=== PATIENT | female | born 1970 | race American Indian/Alaskan Native ===

== ENCOUNTER 2016-11-11 10:40 | Inpatient (IN) | payer MEDICAID ==
[2016-11-11] MEDS ORDERED: NORMODYNE IV ONE (11:21)
[2016-11-11 11:44] LABS: Basophils % (Auto) 0.8 % (0.0-1.8); Eosinophils % (Auto) 2.3 % (0.0-4.3); Hematocrit 40.6 % (30.3-42.9); Hemoglobin 12.8 gm/dl (10.1-14.3); Mean Corpuscular HGB Conc 32 % (30-34); Mean Corpuscular Hemoglobin 27 pg (28-32); Mean Corpuscular Volume 86 fl (79-97); Platelet Count 334 K/mm3 (140-440); Red Cell Distribution Width 13.1 % (13.2-15.2); White Blood Count 8.7 K/mm3 (4.5-11.0)
[2016-11-11 11:52] LABS: INR 0.82 (0.87-1.13)
--- NOTE | 2016-11-11 11:52 | XRay Report ---
AP CHEST: HISTORY: Hypertension AP view of the chest demonstrates a normal mediastinal and cardiac contour with clear lungs and normal bony and soft tissue structures. IMPRESSION: Unremarkable AP chest.
[2016-11-11 11:53] LABS: BUN/Creatinine Ratio 13.07; Calcium 8.5 mg/dL (8.4-10.2); Chloride 101.2 mmol/L (98-107)
[2016-11-11 11:59] LABS: Partial Thromboplastin Time 30.3 Sec. (24.2-36.6)
--- NOTE | 2016-11-11 12:22 | Cat Scan Report ---
CT HEAD WITHOUT CONTRAST: HISTORY: CVA. Serial contiguous axial images were obtained through the cranium. Intravenous contrast material was not administered. The ventricles are normal in size and appearance. There is no mass effect or midline shift. No areas of abnormally increased or decreased attenuation are seen. No mass lesion is seen. The mastoid air cells and visualized portions of the sinuses are normal. IMPRESSION: Cranial CT scan within normal limits. No change since 02/28/16.
[2016-11-11] MEDS ORDERED: NITRO-BID 2% TP ONE (13:14)
[2016-11-11] MEDS ORDERED: ASPIRIN PO ONE (13:14)
[2016-11-11 13:21] LABS: Alanine Aminotransferase 10 units/L (7-56); Albumin 2.4 g/dL (3.9-5); Albumin/Globulin Ratio 0.7 %; Alkaline Phosphatase 31 units/L (35-129); Bilirubin,Total < 0.2 mg/dL (0.1-1.2); Total Protein 5.7 g/dL (6.3-8.2)
[2016-11-11 13:28] LABS: Bilirubin,Direct < 0.2 mg/dL (0-0.2)
[2016-11-11] MEDS ORDERED: D50W (25GM) IV PRN (13:35)
[2016-11-11] MEDS ORDERED: NON-FORMULARY (Metformin Hcl [Glucophage] 1,000 MG) PO SCH (13:45)
[2016-11-11] MEDS ORDERED: ASPIRIN PO SCH (14:00)
[2016-11-11] MEDS: ZESTRIL PO SCH (14:26)
[2016-11-11] MEDS: HCTZ PO SCH (14:26)
[2016-11-11] MEDS: LOPRESSOR PO SCH ×3 (14:27→22:23)
[2016-11-11] MEDS: NEURONTIN PO SCH ×2 (14:41→22:22)
[2016-11-11] MEDS: PROTONIX PO SCH ×2 (14:42→22:24)
[2016-11-11] MEDS: COLACE PO PRN (14:42)
[2016-11-11] MEDS: LOPID PO SCH ×2 (15:03→22:21)
[2016-11-11 16:13] LABS: Creatine Kinase MB 7.5 ng/mL (0.0-4.0)
[2016-11-11 16:15] LABS: Alanine Aminotransferase 9 units/L (7-56); Albumin 2.7 g/dL (3.9-5); Albumin/Globulin Ratio 0.9 %; Alkaline Phosphatase 30 units/L (35-129); BUN/Creatinine Ratio 13.57; Bilirubin,Total < 0.2 mg/dL (0.1-1.2); Blood Urea Nitrogen 19 mg/dL (7-17); Calcium 8.5 mg/dL (8.4-10.2); Carbon Dioxide 27 mmol/L (22-30); Chloride 99.6 mmol/L (98-107); Creatine Kinase 160 units/L (30-135); Glucose 136 mg/dL (65-100); Potassium 3.6 mmol/L (3.6-5.0); Sodium 138 mmol/L (137-145); Total Protein 5.6 g/dL (6.3-8.2)
[2016-11-11 16:24] LABS: Anion Gap 15 mmol/L
[2016-11-11] MEDS: HEPARIN/ 0.45% NACL-25,000 UNIT/500 ML 500 ML IV SCH (16:49)
[2016-11-11] MEDS: NOVOLOG SUB-Q SCH ×2 (16:53→22:44)
[2016-11-11] MEDS ORDERED: GLUCOPHAGE PO SCH (17:00)
[2016-11-11 17:29] LABS: Hematocrit 37.4 % (30.3-42.9); Hemoglobin 11.9 gm/dl (10.1-14.3)
[2016-11-11 17:50] LABS: INR 0.91 (0.87-1.13)
[2016-11-11 17:57] LABS: Creatine Kinase MB 6.8 ng/mL (0.0-4.0)
[2016-11-11] MEDS ORDERED: NON-FORMULARY (Ranitidine Hcl [Zantac 300 Mg Tab] 300 MG) PO SCH (18:00)
--- NOTE | 2016-11-11 20:00 | Emergency Department Report ---
ED Neuro Deficit HPI - General Chief Complaint: Neuro Symptoms/Deficit Stated Complaint: TIA Time Seen by Provider: 11/11/16 11:16 Source: patient, EMS Mode of arrival: Stretcher Limitations: No Limitations - History of Present Illness Initial Comments: The patient was admitted to this facility under very similar circumstances in August. 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 She had a CT of her head which showed "chunky dural calcifications". An MRI was recommended which the patient refused it. This time the patient states that she had right-sided weakness for less than a half an hour which did not involve her face. She states she may have had some tingling. While she was in the emergency department her thought she was having another episode. However, when I went to see her she was entirely neurologically intact and denied any recurrent weakness. The patient has a history of hypertension. She tells me she was compliant with her blood pressure medicine. However she admits that she did not take a dose yesterday and today. It seems not likely that she is noncompliant. -: Gradual Location: right arm, right leg Presenting Symptoms: Present: Weak/Paralyzed One Side History of same: No Place: home Severity: moderate Quality: weak Improves With: none Worsens With: none On Anticoagulants: No Context: sudden onset Associated Symptoms: denies other symptoms Treatments Prior to Arrival: none - Related Data Home Medications: Home Medications Medication Instructions Recorded Confirmed Last Taken Aspirin [Aspirin BABY CHEW TAB] 81 mg PO QDAY 02/28/16 11/11/16 02/28/16 Gabapentin [Neurontin] 300 mg PO Q8HR 02/28/16 11/11/16 02/28/16 Gemfibrozil [Lopid] 600 mg PO BID 02/28/16 11/11/16 02/28/16 Hydrochlorothiazide [HCTZ] 25 mg PO QDAY 02/28/16 11/11/16 02/28/16 Ibuprofen [Motrin 200 MG tab] 200 mg PO Q6H PRN 02/28/16 11/11/16 02/28/16 Lisinopril [Zestril TAB] 20 mg PO QDAY 02/28/16 11/11/16 02/28/16 Metformin HCl [Glucophage] 1,000 mg PO BID 02/28/16 11/11/16 02/28/16 Metoprolol [Lopressor TAB] 100 mg PO BID 02/28/16 11/11/16 02/28/16 Pantoprazole [Protonix TAB] 40 mg PO BID 02/28/16 11/11/16 02/28/16 Ranitidine HCl [Zantac 300 MG TAB] 300 mg PO QPM 02/28/16 11/11/16 02/28/16 cloNIDine [Catapres] 0.1 mg PO BID 02/28/16 11/11/16 02/28/16 Insulin NPH/Regular [NovoLIN 70/30] 0 units SQ ACHS 11/11/16 11/11/16 Unknown Previous Rx's Medication Instructions Recorded Last Taken Type amLODIPine [Norvasc] 10 mg PO QDAY #30 tablet 02/29/16 Unknown Rx Docusate Sodium [Colace] 100 mg PO BID PRN #60 capsule 06/26/16 Unknown Rx Allergies/Adverse Reactions: Allergies Allergy/AdvReac Type Severity Reaction Status Date / Time cat dander Allergy Unknown Verified 02/28/16 15:34 Egg Derived Allergy Vomiting Verified 02/28/16 15:34 ED Review of Systems ROS: Stated complaint: TIA Other details as noted in HPI Constitutional: denies: chills, fever Eyes: denies: eye pain, eye discharge, vision change ENT: denies: ear pain, throat pain Respiratory: denies: cough, shortness of breath, wheezing Cardiovascular: denies: chest pain, palpitations Endocrine: no symptoms reported Gastrointestinal: denies: abdominal pain, nausea, diarrhea Genitourinary: denies: urgency, dysuria, discharge Musculoskeletal: denies: back pain, joint swelling, arthralgia Skin: denies: rash, lesions Neurological: weakness. denies: headache, paresthesias Psychiatric: denies: anxiety, depression Hematological/Lymphatic: denies: easy bleeding, easy bruising ED Past Medical Hx - Past Medical History Hx Hypertension: Yes Hx CVA: Yes Hx Congestive Heart Failure: No Hx Diabetes: Yes Hx Asthma: No Hx COPD: No Additional medical history: high cholesterol - Social History Smoking Status: Never Smoker Substance Use Type: None - Medications Home Medications: Home Medications Medication Instructions Recorded Confirmed Last Taken Type Aspirin [Aspirin BABY CHEW TAB] 81 mg PO QDAY 02/28/16 11/11/16 02/28/16 History Gabapentin [Neurontin] 300 mg PO Q8HR 02/28/16 11/11/16 02/28/16 History Gemfibrozil [Lopid] 600 mg PO BID 02/28/16 11/11/16 02/28/16 History Hydrochlorothiazide [HCTZ] 25 mg PO QDAY 02/28/16 11/11/16 02/28/16 History Ibuprofen [Motrin 200 MG tab] 200 mg PO Q6H PRN 02/28/16 11/11/16 02/28/16 History Lisinopril [Zestril TAB] 20 mg PO QDAY 02/28/16 11/11/16 02/28/16 History Metformin HCl [Glucophage] 1,000 mg PO BID 02/28/16 11/11/16 02/28/16 History Metoprolol [Lopressor TAB] 100 mg PO BID 02/28/16 11/11/16 02/28/16 History Pantoprazole [Protonix TAB] 40 mg PO BID 02/28/16 11/11/16 02/28/16 History Ranitidine HCl [Zantac 300 MG TAB] 300 mg PO QPM 02/28/16 11/11/16 02/28/16 History cloNIDine [Catapres] 0.1 mg PO BID 02/28/16 11/11/16 02/28/16 History amLODIPine [Norvasc] 10 mg PO QDAY #30 tablet 02/29/16 11/11/16 Unknown Rx Docusate Sodium [Colace] 100 mg PO BID PRN #60 capsule 06/26/16 11/11/16 Unknown Rx Insulin NPH/Regular [NovoLIN 70/30] 0 units SQ ACHS 11/11/16 11/11/16 Unknown History ED Neuro Physical Exam - General Limitations: No Limitations General appearance: alert, in no apparent distress Suspected Stroke: No - Head Head exam: Present: atraumatic, normocephalic - Eye Eye exam: Present: normal appearance. Absent: scleral icterus - ENT ENT exam: Present: mucous membranes moist - Neck Neck exam: Present: normal inspection - Respiratory Respiratory exam: Present: normal lung sounds bilaterally. Absent: respiratory distress - Cardiovascular Cardiovascular Exam: Present: regular rate, normal rhythm. Absent: systolic murmur, diastolic murmur, rubs, gallop - GI/Abdominal GI/Abdominal exam: Present: soft, normal bowel sounds. Absent: distended, tenderness, guarding, rebound, rigid - Extremities Exam Extremities exam: Present: normal inspection - Back Exam Back exam: Present: normal inspection - Neurological Exam Neurological exam: Present: alert, oriented X3, CN II-XII intact. Absent: motor sensory deficit - NIHSS Assessment Interval: Baseline 1a. Level of Consciousness: alert 1b. LOC Questions: answers correctly 1c. LOC Commands: performs tasks correctly 2. Best Gaze: normal 3. Visual: no visual loss 4. Facial Palsy: normal symmetrical movement 5b. Motor Arm Right: no drift 5a. Motor Arm Left: no drift 6a. Motor Leg Left: no drift 6b. Motor Leg Right: no drift 7. Limb Ataxia: absent 8. Sensory: normal 9. Best Language: no aphasia 10. Dysarthria: normal 11. Extinction/Inattention: no abnormality Total Score: 0 Stroke Severity: No Stroke Symptoms - Psychiatric Psychiatric exam: Present: normal affect, normal mood - Skin Skin exam: Present: warm, dry, intact, normal color. Absent: rash ED Course Vital Signs 11/11/16 11/11/16 11/11/16 10:44 10:59 11:00 Temperature 98.4 F Pulse Rate 91 H 92 H Pulse Rate [ Left] Respiratory 18 Rate Blood Pressure 170/110 227/128 227/128 Blood Pressure [Left Arm] Blood Pressure [Right] O2 Sat by Pulse 16 L 100 Oximetry 11/11/16 11/11/16 11/11/16 11:24 11:45 12:00 Temperature Pulse Rate 92 H 99 H 97 H Pulse Rate [ Left] Respiratory 18 18 13 Rate Blood Pressure 229/130 191/118 Blood Pressure [Left Arm] Blood Pressure 229/130 177/97 [Right] O2 Sat by Pulse 100 100 Oximetry 11/11/16 11/11/16 11/11/16 12:08 12:37 13:00 Temperature Pulse Rate 97 H 97 H Pulse Rate [ Left] Respiratory 189 H 18 9 L Rate Blood Pressure 182/99 Blood Pressure [Left Arm] Blood Pressure 172/95 [Right] O2 Sat by Pulse 100 100 99 Oximetry 11/11/16 11/11/16 11/11/16 13:32 14:00 14:26 Temperature Pulse Rate 95 H 99 H 99 H Pulse Rate [ Left] Respiratory 14 Rate Blood Pressure 189/95 192/120 181/117 Blood Pressure [Left Arm] Blood Pressure [Right] O2 Sat by Pulse Oximetry 11/11/16 11/11/16 11/11/16 15:00 15:01 16:00 Temperature Pulse Rate 98 H 99 H 101 H Pulse Rate [ Left] Respiratory 16 12 11 L Rate Blood Pressure 180/117 180/117 185/117 Blood Pressure [Left Arm] Blood Pressure [Right] O2 Sat by Pulse 99 99 Oximetry 11/11/16 11/11/16 11/11/16 16:40 16:56 18:04 Temperature 98.5 F Pulse Rate 102 H 92 H Pulse Rate [ 89 Left] Respiratory 18 20 Rate Blood Pressure 183/114 Blood Pressure 187/98 [Left Arm] Blood Pressure 158/108 [Right] O2 Sat by Pulse 100 99 Oximetry - Reevaluation(s) Reevaluation #1: Patient is admitted by the hospitalist service for further care and stabilization of her blood pressure and repeat cerebral vascularworkup as per their decision making. 11/11/16 20:00 - Lab Data Result diagrams: 11/11/16 17:13 11/11/16 15:41 Lab Results 11/11/16 11/11/16 11/11/16 Range/Units 11:29 11:29 11:29 WBC 8.7 (4.5-11.0) K/mm3 RBC 4.70 (3.65-5.03) M/mm3 Hgb 12.8 (10.1-14.3) gm/dl Hct 40.6 (30.3-42.9) % MCV 86 (79-97) fl MCH 27 L (28-32) pg MCHC 32 (30-34) % RDW 13.1 L (13.2-15.2) % Plt Count 334 (140-440) K/mm3 Lymph % (Auto) 23.5 (13.4-35.0) % [place] % (Auto) 8.4 H (0.0-7.3) % Eos % (Auto) 2.3 (0.0-4.3) % Baso % (Auto) 0.8 (0.0-1.8) % Lymph # 2.0 (1.2-5.4) K/mm3 [place] # 0.7 (0.0-0.8) K/mm3 Eos # 0.2 (0.0-0.4) K/mm3 Baso # 0.1 (0.0-0.1) K/mm3 Seg Neutrophils % 65.0 (40.0-70.0) % Seg Neutrophils # 5.6 (1.8-7.7) K/mm3 PT 11.2 L (12.2-14.9) Sec. INR 0.82 L (0.87-1.13) APTT 30.3 (24.2-36.6) Sec. Thrombin Time (15.1-19.6) Sec. Sodium 140 (137-145) mmol/L Potassium 4.0 (3.6-5.0) mmol/L Chloride 101.2 (98-107) mmol/L Carbon Dioxide 25 (22-30) mmol/L Anion Gap 18 mmol/L BUN 17 (7-17) mg/dL Creatinine 1.3 H (0.7-1.2) mg/dL Estimated GFR 53 ml/min BUN/Creatinine Ratio 13.07 % Glucose 155 H (65-100) mg/dL Calcium 8.5 (8.4-10.2) mg/dL Total Bilirubin (0.1-1.2) mg/dL Direct Bilirubin (0-0.2) mg/dL Indirect Bilirubin mg/dL AST (5-40) units/L ALT (7-56) units/L Alkaline Phosphatase (35-129) units/L Troponin T 0.066 H (0.00-0.029) ng/mL Total Protein (6.3-8.2) g/dL Albumin (3.9-5) g/dL Albumin/Globulin Ratio % Triglycerides 146 (2-149) mg/dL Cholesterol 258 H (50-199) mg/dL LDL Cholesterol Direct 150 H (50-130) mg/dL HDL Cholesterol 79 H (40-59) mg/dL Cholesterol/HDL Ratio 3.26 % 11/11/16 11/11/16 11/11/16 Range/Units 11:29 11:29 13:19 WBC (4.5-11.0) K/mm3 RBC (3.65-5.03) M/mm3 Hgb (10.1-14.3) gm/dl Hct (30.3-42.9) % MCV (79-97) fl MCH (28-32) pg MCHC (30-34) % RDW (13.2-15.2) % Plt Count (140-440) K/mm3 Lymph % (Auto) (13.4-35.0) % [place] % (Auto) (0.0-7.3) % Eos % (Auto) (0.0-4.3) % Baso % (Auto) (0.0-1.8) % Lymph # (1.2-5.4) K/mm3 [place] # (0.0-0.8) K/mm3 Eos # (0.0-0.4) K/mm3 Baso # (0.0-0.1) K/mm3 Seg Neutrophils % (40.0-70.0) % Seg Neutrophils # (1.8-7.7) K/mm3 PT (12.2-14.9) Sec. INR (0.87-1.13) APTT (24.2-36.6) Sec. Thrombin Time 26.2 H (15.1-19.6) Sec. Sodium (137-145) mmol/L Potassium (3.6-5.0) mmol/L Chloride (98-107) mmol/L Carbon Dioxide (22-30) mmol/L Anion Gap mmol/L BUN (7-17) mg/dL Creatinine (0.7-1.2) mg/dL Estimated GFR ml/min BUN/Creatinine Ratio % Glucose (65-100) mg/dL Calcium (8.4-10.2) mg/dL Total Bilirubin < 0.2 (0.1-1.2) mg/dL Direct Bilirubin < 0.2 (0-0.2) mg/dL Indirect Bilirubin 0.0 mg/dL AST 14 (5-40) units/L ALT 10 (7-56) units/L Alkaline Phosphatase 31 L (35-129) units/L Troponin T 0.065 H (0.00-0.029) ng/mL Total Protein 5.7 L (6.3-8.2) g/dL Albumin 2.4 L (3.9-5) g/dL Albumin/Globulin Ratio 0.7 % Triglycerides (2-149) mg/dL Cholesterol (50-199) mg/dL LDL Cholesterol Direct (50-130) mg/dL HDL Cholesterol (40-59) mg/dL Cholesterol/HDL Ratio % - Medical Decision Making Obviously TPA was not indicated in this patient with a stroke score of 0 and no neurological deficit. Critical care attestation.: If time is entered above; I have spent that time in minutes in the direct care of this critically ill patient, excluding procedure time. ED Disposition Clinical Impression: Uncontrolled hypertension TIA (transient ischemic attack) Qualifiers: Transient cerebral ischemia type: unspecified Qualified Code(s): G45.9 - Transient cerebral ischemic attack, unspecified Disposition: OP ADMITTED IP TO THIS HOSP Is pt being admited?: Yes Does the pt Need Aspirin: Yes Time of Disposition: 20:01
[2016-11-11] MEDS ORDERED: TYLENOL PO PRN (21:25)
--- NOTE | 2016-11-11 22:28 | History and Physical Report ---
History of Present Illness Date of examination: 11/11/16 Date of admission: 11/11/16 13:29 Chief complaint: Numbness in the left upper and lower extremities one day duration History of present illness: Patient is 46-year-old lady who was a history of hypertension diabetes mellitus and hyperlipidemia, woke up this morning with numbness in the left upper and lower extremities. helped back to the bed and called EMS. On arrival to the emergency department patient stated that numbness had improved. Denies any fevers, no slow speech or facial droop. However blood pressure was found to be 229/130. Patient denies any chest pain or shortness of breath no proximal nocturnal dyspnea or pedal edema. Patient has similar episode in August 2016. Was fully worked up with the minimal narrowing of the carotid - 49%, identified. MRI of the brain was ordered at that admission but patient declined. at the emergency department on this visit patient's cardiac enzymes were found to be slightly elevated. However patient denies any chest pain. CT of the brain was unremarkable for any acute events. Admission was therefore requested for further workup. Past History Past Medical History: diabetes, hypertension, hyperlipidemia Past Surgical History: denies: No surgical history Social history: denies: smoking, alcohol abuse, IV drug use Family history: hypertension, stroke Medications and Allergies Allergies Allergy/AdvReac Type Severity Reaction Status Date / Time cat dander Allergy Unknown Verified 02/28/16 15:34 Egg Derived Allergy Vomiting Verified 02/28/16 15:34 Home Medications Medication Instructions Recorded Confirmed Last Taken Type Aspirin [Aspirin BABY CHEW TAB] 81 mg PO QDAY 02/28/16 11/11/16 02/28/16 History Gabapentin [Neurontin] 300 mg PO Q8HR 02/28/16 11/11/16 02/28/16 History Gemfibrozil [Lopid] 600 mg PO BID 02/28/16 11/11/16 02/28/16 History Hydrochlorothiazide [HCTZ] 25 mg PO QDAY 02/28/16 11/11/16 02/28/16 History Ibuprofen [Motrin 200 MG tab] 200 mg PO Q6H PRN 02/28/16 11/11/16 02/28/16 History Lisinopril [Zestril TAB] 20 mg PO QDAY 02/28/16 11/11/16 02/28/16 History Metformin HCl [Glucophage] 1,000 mg PO BID 02/28/16 11/11/16 02/28/16 History Metoprolol [Lopressor TAB] 100 mg PO BID 02/28/16 11/11/16 02/28/16 History Pantoprazole [Protonix TAB] 40 mg PO BID 02/28/16 11/11/16 02/28/16 History Ranitidine HCl [Zantac 300 MG TAB] 300 mg PO QPM 02/28/16 11/11/16 02/28/16 History cloNIDine [Catapres] 0.1 mg PO BID 02/28/16 11/11/16 02/28/16 History amLODIPine [Norvasc] 10 mg PO QDAY #30 tablet 02/29/16 11/11/16 Unknown Rx Docusate Sodium [Colace] 100 mg PO BID PRN #60 capsule 06/26/16 11/11/16 Unknown Rx Insulin NPH/Regular [NovoLIN 70/30] 0 units SQ ACHS 11/11/16 11/11/16 Unknown History Active Meds: Active Medications Acetaminophen (Tylenol) 650 mg PO Q4H PRN PRN Reason: Pain, Mild (1-3) Aspirin (Aspirin) 325 mg PO QDAY [facility] Last Admin: 11/11/16 14:01 Dose: Not Given Atorvastatin Calcium (Lipitor) 40 mg PO QHS [facility] Dextrose (D50w (25gm)) 50 ml IV PRN PRN PRN Reason: Hypoglycemia Docusate Sodium (Colace) 100 mg PO BID PRN PRN Reason: Constipation Last Admin: 11/11/16 14:42 Dose: 100 mg Gabapentin (Neurontin) 300 mg PO Q8HR [facility] Last Admin: 11/11/16 14:41 Dose: 300 mg Gemfibrozil (Lopid) 600 mg PO BID [facility] Last Admin: 11/11/16 15:03 Dose: Not Given Hydralazine HCl (Apresoline) 10 mg IV Q6H PRN PRN Reason: htn Hydrochlorothiazide (Hctz) 25 mg PO QDAY [facility] Last Admin: 11/11/16 14:26 Dose: 25 mg Heparin Sodium/Sodium Chloride (Heparin/ 0.45% Nacl-25,000 Unit/500 Ml) 500 mls @ 20 mls/hr IV TITRATE HUGO; 1,000 UNITS/HR PRN Reason: Protocol Last Admin: 11/11/16 16:49 Dose: 20 mls/hr Insulin Aspart (Novolog) 0 units SUB-Q ACHS [facility] PRN Reason: Protocol Last Admin: 11/11/16 16:53 Dose: Not Given Lisinopril (Zestril) 20 mg PO QDAY [facility] Last Admin: 11/11/16 14:26 Dose: 20 mg Metformin HCl (Glucophage) 1,000 mg PO BIDDIAB [facility] Last Admin: 11/11/16 18:18 Dose: Not Given Metoprolol Tartrate (Lopressor) 100 mg PO BID [facility] Last Admin: 11/11/16 16:40 Dose: 100 mg Pantoprazole Sodium (Protonix) 40 mg PO BID [facility] Last Admin: 11/11/16 14:42 Dose: 40 mg Review of Systems Constitutional: no weight gain, no fever, no chills, no anorexia Ears, nose, mouth and throat: no ear pain, no ear discharge, no tinnitis Cardiovascular: no chest pain, no orthopnea, no palpitations Respiratory: no cough, no cough with sputum, no excessive sputum, no hemoptysis Gastrointestinal: no abdominal pain, no nausea, no vomiting Musculoskeletal: no neck stiffness, no neck pain, no shooting arm pain Integumentary: no rash, no pruritis, no redness Neurological: numbness (left upper extremity) Psychiatric: no anxiety, no memory loss, no change in sleep habits, no sleep disturbances, no depression, no hopelessness Endocrine: no polyphagia, no excessive thirst, no polydipsia, no polyuria, no weight change Hematologic/Lymphatic: no easy bruising, no easy bleeding Allergic/Immunologic: no urticaria, no allergic rhinitis Exam - Constitutional Vitals: Temp Pulse Resp BP Pulse Ox 98.4 F 94 H 18 156/81 99 11/11/16 20:50 11/11/16 20:50 11/11/16 20:50 11/11/16 20:50 11/11/16 22:18 General appearance: Present: no acute distress - EENT Eyes: Present: PERRL, EOM intact - Neck Neck: Present: supple - Respiratory Respiratory: bilateral: CTA - Cardiovascular Rhythm: regular Heart Sounds: Present: S1 & S2 - Extremities Extremities: no ischemia, No edema - Abdominal General gastrointestinal: Present: soft, non-tender, non-distended - Integumentary Integumentary: Present: clear, warm - Musculoskeletal Musculoskeletal: strength equal bilaterally - Psychiatric Psychiatric: appropriate mood/affect - Neurologic Neurologic: CNII-XII intact Results - Labs CBC & Chem 7: 11/11/16 17:13 11/11/16 15:41 Labs: Abnormal lab results 11/11/16 11/11/16 11/11/16 Range/Units 15:41 17:20 17:20 BUN 19 H (7-17) mg/dL Creatinine 1.4 H (0.7-1.2) mg/dL Glucose 136 H (65-100) mg/dL POC Glucose (70-105) Alkaline Phosphatase 30 L (35-129) units/L Total Creatine Kinase 160 H 159 H (30-135) units/L CK-MB (CK-2) 7.5 H 6.8 H (0.0-4.0) ng/mL CK-MB (CK-2) Rel Index 4.6 H 4.2 H (0-4) Troponin T 0.069 H (0.00-0.029) ng/mL Total Protein 5.6 L (6.3-8.2) g/dL Albumin 2.7 L (3.9-5) g/dL 11/11/16 Range/Units 17:34 BUN (7-17) mg/dL Creatinine (0.7-1.2) mg/dL Glucose (65-100) mg/dL POC Glucose 203 H (70-105) Alkaline Phosphatase (35-129) units/L Total Creatine Kinase (30-135) units/L CK-MB (CK-2) (0.0-4.0) ng/mL CK-MB (CK-2) Rel Index (0-4) Troponin T (0.00-0.029) ng/mL Total Protein (6.3-8.2) g/dL Albumin (3.9-5) g/dL Assessment and Plan - Patient Problems (1) TIA (transient ischemic attack) Diagnosis Date: 11/11/16 Current Visit: Yes Status: Acute Qualifiers: Transient cerebral ischemia type: unspecified Qualified Code(s): G45.9 - Transient cerebral ischemic attack, unspecified Plan to address problem: Patient commenced on aspirin, atorvastatin, neurochecks every 4, Lovenox, MRI of the brain ordered. PT OT evaluation and treatment. Recent echo was done in August 2016. We'll therefore not obtain another echocardiogram. 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 Moderate dose. (4) Elevation of cardiac enzymes Diagnosis Date: 11/11/16 Current Visit: Yes Status: Acute Plan to address problem: Secondary cancers ordered. Oxygen nitroglycerin aspirin and morphine ordered. Patient commenced on heparin drip. Cardiology consult obtained.
--- NOTE | 2016-11-12 00:05 | Admit Criteria Form ---
Admission Criteria Documentation: TRANSIENT ISCHEMIC ATTACK (TIA) Clinical Indications for Admission to Inpatient Care (Place 'X' for any and all applicable criteria): Admission is indicated for ANY ONE of the following(1)(2)(3)(4)(5): [ ]I. Immediate inpatient procedure is needed (eg, endarterectomy). [X ]II. Inpatient admission required rather than observation care (Also use Transient Ischemic Attack (TIA): Observation Care Criteria as appropriate) because of ANY ONE of the following: [ ]a) Focal neurologic signs or symptoms persist or recurring [ ]b) Cardiac arrhythmias of immediate concern [ ]c) Clinically significant cardiac disorder identified that requires inpatient care (eg, severe valvular disease, atrial myxoma, cardiomyopathy) [ X]d) Hypertension requiring inpatient treatment [ ]e) Parenteral anticoagulation required (eg, alternative forms of anticoagulation not appropriate or not feasible) as indicated by ALL of the following(13): [ ]i) Temporary subtherapeutic anticoagulation unacceptable because of high risk of short-term venous or arterial thromboembolism due to ANY ONE of the following(14)(15)(16): [ ]1) Atrial fibrillation suspected as etiology of TIA(17)(18)(19)(20)(21) [ ]2) Venous thromboembolism within past 12 months [ ]3) Underlying malignancy [ ]4) Patient with mechanical cardiac valve(22)( 23) [ ]5) Underlying hypercoagulable state (eg, protein C or protein S deficiency antithrombin deficiency, antiphospholipid antibodies) [ ]6) Patient at temporary high risk of thromboembolism (eg, status post orthopedic surgery) [ ]ii) Contraindications to outpatient use of "bridging" agent or alternative oral anticoagulant[B] as indicated by ALL of the following: [ ]1) Contraindication to outpatient use of low- molecular-weight heparin as "bridging" agent as indicated by ANY ONE of the following(15): [ ]A. Documented current or history of heparin-induced thrombocytopenia(24) [ ]B. Severe thrombocytopenia (eg, platelet count less than 50,000/mm3 (48q152/L) [ ]C. Documented allergy to heparin, low- molecular-weight heparin, or pork products [ ]D. Renal failure (creatinine clearance less than 30 mL/min/1.73m2 (0.50mL/sec/1.73m2) or on dialysis) [ ]E. Inability to manage self-injection ( eg, by patient, caregiver, or visiting nurse) [ ]2) Contraindication to outpatient use of fondaparinux as "bridging" agent as indicated by ANY ONE of the following(25)(26 )(27)(28): [ ]A. Severe thrombocytopenia (eg, platelet count less than 50,000/mm3 (50 x109/L)) [ ]B.Hypersensitivity to fondaparinux, related drugs, or product components [ ]C.Renal failure (creatinine clearance less than 30 mL/min/1.73m2 (0.50mL/sec/1.73m2) or on dialysis) [ ]D.Inability to manage self-injection ( eg, by patient, caregiver, or visiting nurse [ ]3. Oral direct thrombin inhibitor (eg, dabigatran) or oral coagulation factor Xa inhibitor (eg, rivaroxaban, apixaban) not appropriate as oral anticoagulation (eg, indication not appropriate) or contraindicated (eg, hypersensitivity, creatinine clearance less than 15 mL/min/1.73m2 ( 0.25 mL/sec/1.73m2) or on dialysis). [ ]f) Continuous IV infusion of anticoagulant, platelet inhibitor, vasoactive or antiarrhythmia(18)(19) [ ]g) Other condition, treatment, or monitoring requiring inpatient admission [ ]III. Contraindications and/or Inappropriate clinical situations for Observational Care in patients with Transient Ischemic Attack (TIA), when ANY ONE of the following is required: [ ]a) Patient with persistent or severe neurological deficit 24 [ ]b) Patient with acute CVA or other identified pathology should be admitted to inpatient for further care 25 [ ]IV. General contraindications and/or Inappropriate clinical situations for Observational Care in patients with Transient Ischemic Attack (TIA), when ANY ONE of the following is required: [ ]a) Prediction of prolongation of LOS based on ANY ONE of the following may be considered as a contraindication for observational care 2, 3, 4, 5, 6, 7, 8, 9, 10, 11 [ ]i) Age > 65 yrs. [ ]ii) Patient arriving by ambulance [ ]iii) Patient with high acuity [ ]iv) Patient requiring vital sign monitoring [ ]v) Patient on IV medication [ ]b) Systolic blood pressures 180mmHg 3,12 [ ]c) Patient with altered mental status including delirium and other alteration of consciousness, (3) [ ]d) Patient whose discharge disposition will be to a [facility]p home or rehabilitation home should not be managed in Emergency Department Observation Unit. CMS rule requires 3 days hospital stay before such placement.3,13 [ ]e) Patient with failure to thrive due to broad array of etiologies 3,16,17 [ ]f) Inability to ambulate 3,14 Extended stay beyond goal length of stay may be needed for(4)(30)(32): [ ]a) Parenteral anticoagulation required [ ]b) Dangerous arrhythmia [ ]c) Cardiac valvular disorder, atrial myxoma, cardiomyopathy [ ]d) Uncontrolled severe hypertension [ ]e) Severe carotid stenosis [ ]f) Active comorbidities (eg, heart failure) [ ]g) Extracranial vertebrobasilar disease(29) [ ]h) Clinical evolution of TIA into cerebrovascular accident (stroke) The original [employer] content created by [employer] has been revised. The portions of thecontent which have been revised are identified through the use of italic text or in bold, and [facility] has neither reviewed nor approved the modified material. All other unmodified content is copyright [facility]. Please see references footnoted in the original [facility] edition 2016 Admission Criteria Met: Yes
[2016-11-12] MEDS ORDERED: HEPARIN 10,000 UNITS/10 ML IV ONE (01:38)
[2016-11-12] MEDS: APRESOLINE IV PRN ×3 (02:30→12:54)
[2016-11-12 06:10] LABS: Creatine Kinase MB 4.1 ng/mL (0.0-4.0)
[2016-11-12] MEDS: NEURONTIN PO SCH ×3 (06:42→23:08)
[2016-11-12] MEDS: NOVOLOG SUB-Q SCH ×4 (09:07→23:09)
[2016-11-12] MEDS: LOPRESSOR PO SCH ×2 (11:29→23:08)
[2016-11-12] MEDS: ZESTRIL PO SCH (11:29)
[2016-11-12] MEDS: HCTZ PO SCH (11:29)
[2016-11-12] MEDS: LOPID PO SCH ×2 (11:30→23:09)
[2016-11-12] MEDS: PROTONIX PO SCH ×2 (11:30→23:08)
[2016-11-12] MEDS: ASPIRIN PO SCH (11:34)
--- NOTE | 2016-11-12 11:46 | Magnetic Resonance Report ---
MRI of the brain without contrast. History: Transient ischemic attack. Procedure: Routine brain protocol without contrast. Findings: There are 3 subcentimeter foci of restricted diffusion in the right frontal lobe and one similar sized area of restricted diffusion in the right occipital lobe. The posterior fossa is normal. The ventricles are normal in size and contour. There are no masses or extra-axial collections. Minimal periventricular white matter signal abnormality is noted on the right. The pituitary gland is normal. There is evidence of bilateral maxillary and ethmoid sinusitis. Impression: 1. There are 4 areas of acute lacunar infarct in the right hemisphere, 3 in the right frontal lobe and one in the right occipital lobe. 2. Minimal right periventricular white matter ischemic changes. Comment: These findings were telephoned to the patient's physician, Dr. Tong at 11:45 AM on November 12, 2016.
--- NOTE | 2016-11-12 11:51 | Consultation ---
Addendum entered and electronically signed by AJAY HEARN MD 11/12/16 19:11 : Patient's major clinical problem is recurrent TIA, and a brain scan has reported multiple infarcts. We'll therefore recommend echocardiography with SELAM for cardioembolic source. Otherwise, no cardiac workup is indicated for nonspecific isolated mild rise in troponin. Original Note: History of Present Illness Consult date: 11/12/16 Consult reason: elevated troponin History of present illness: This is a 46yr old woman who presented with confusion and left sided weakness. She has a history of Hypertension and Diabetes mellitus. Noted hypertensive on presentation with a blood pressure 227/128. Patient reports not taking her medications for several weeks. Currently undergoing workup for CVA. Cardiac consultation requested for elevated troponin. There is no prior cardiac history or workup. Her ECG shows a sinus rhythm with LVH. She denies chest pain , shortness of breath and palpitations. Past History Past Medical History: diabetes, hypertension, hyperlipidemia Past Surgical History: denies: No surgical history Social history: denies: smoking, alcohol abuse, IV drug use Family history: hypertension, stroke Medications and Allergies Allergies Allergy/AdvReac Type Severity Reaction Status Date / Time cat dander Allergy Unknown Verified 02/28/16 15:34 Egg Derived Allergy Vomiting Verified 02/28/16 15:34 Home Medications Medication Instructions Recorded Confirmed Last Taken Type Aspirin [Aspirin BABY CHEW TAB] 81 mg PO QDAY 02/28/16 11/11/16 02/28/16 History Gabapentin [Neurontin] 300 mg PO Q8HR 02/28/16 11/11/16 02/28/16 History Gemfibrozil [Lopid] 600 mg PO BID 02/28/16 11/11/16 02/28/16 History Hydrochlorothiazide [HCTZ] 25 mg PO QDAY 02/28/16 11/11/16 02/28/16 History Ibuprofen [Motrin 200 MG tab] 200 mg PO Q6H PRN 02/28/16 11/11/16 02/28/16 History Lisinopril [Zestril TAB] 20 mg PO QDAY 02/28/16 11/11/16 02/28/16 History Metformin HCl [Glucophage] 1,000 mg PO BID 02/28/16 11/11/16 02/28/16 History Metoprolol [Lopressor TAB] 100 mg PO BID 02/28/16 11/11/16 02/28/16 History Pantoprazole [Protonix TAB] 40 mg PO BID 02/28/16 11/11/16 02/28/16 History Ranitidine HCl [Zantac 300 MG TAB] 300 mg PO QPM 02/28/16 11/11/16 02/28/16 History cloNIDine [Catapres] 0.1 mg PO BID 02/28/16 11/11/16 02/28/16 History amLODIPine [Norvasc] 10 mg PO QDAY #30 tablet 02/29/16 11/11/16 Unknown Rx Docusate Sodium [Colace] 100 mg PO BID PRN #60 capsule 06/26/16 11/11/16 Unknown Rx Insulin NPH/Regular [NovoLIN 70/30] 0 units SQ ACHS 11/11/16 11/11/16 Unknown History Active Meds: Active Medications Acetaminophen (Tylenol) 650 mg PO Q4H PRN PRN Reason: Pain, Mild (1-3) Last Admin: 11/11/16 22:22 Dose: 650 mg Aspirin (Aspirin) 325 mg PO QDAY [facility] Last Admin: 11/12/16 11:34 Dose: 325 mg Atorvastatin Calcium (Lipitor) 40 mg PO QHS [facility] Last Admin: 11/11/16 22:22 Dose: 40 mg Dextrose (D50w (25gm)) 50 ml IV PRN PRN PRN Reason: Hypoglycemia Docusate Sodium (Colace) 100 mg PO BID PRN PRN Reason: Constipation Last Admin: 11/11/16 14:42 Dose: 100 mg Gabapentin (Neurontin) 300 mg PO Q8HR [facility] Last Admin: 11/12/16 06:42 Dose: 300 mg Gemfibrozil (Lopid) 600 mg PO BID [facility] Last Admin: 11/12/16 11:30 Dose: 600 mg Hydralazine HCl (Apresoline) 10 mg IV Q6H PRN PRN Reason: htn Last Admin: 11/12/16 08:09 Dose: 10 mg Hydrochlorothiazide (Hctz) 25 mg PO QDAY [facility] Last Admin: 11/12/16 11:29 Dose: 25 mg Heparin Sodium/Sodium Chloride (Heparin/ 0.45% Nacl-25,000 Unit/500 Ml) 500 mls @ 20 mls/hr IV TITRATE [facility]; 1,000 UNITS/HR PRN Reason: Protocol Last Titration: 11/12/16 11:07 Dose: 1,200 units/hr Insulin Aspart (Novolog) 0 units SUB-Q ACHS [facility] PRN Reason: Protocol Last Admin: 11/12/16 09:07 Dose: Not Given Lisinopril (Zestril) 20 mg PO QDAY [facility] Last Admin: 11/12/16 11:29 Dose: 20 mg Metoprolol Tartrate (Lopressor) 100 mg PO BID [facility] Last Admin: 11/12/16 11:29 Dose: 100 mg Pantoprazole Sodium (Protonix) 40 mg PO BID [facility] Last Admin: 11/12/16 11:30 Dose: 40 mg Physical Examination Vital Signs Temp Pulse BP Pulse Ox 98.4 F 91 H 170/110 16 L 11/11/16 10:44 11/11/16 10:44 11/11/16 10:44 11/11/16 10:44 General appearance: no acute distress HEENT: Positive: PERRL Neck: Positive: trachea midline Cardiac: Positive: Reg Rate and Rhythm Lungs: Positive: Decreased Breath Sounds Results 11/11/16 17:13 11/11/16 15:41 Cardiac Enzymes 11/11/16 11/11/16 11/12/16 Range/Units 15:41 17:20 05:12 AST 12 (5-40) units/L CK-MB (CK-2) 7.5 H 6.8 H 4.1 H (0.0-4.0) ng/mL Coagulation 11/11/16 Range/Units 17:13 PT 12.2 (12.2-14.9) Sec. INR 0.91 (0.87-1.13) APTT 33.0 (24.2-36.6) Sec. CBC 11/11/16 Range/Units 17:13 Hgb 11.9 (10.1-14.3) gm/dl Hct 37.4 (30.3-42.9) % Plt Count 296 (140-440) K/mm3 Comprehensive Metabolic Panel 11/11/16 Range/Units 15:41 Sodium 138 (137-145) mmol/L Potassium 3.6 (3.6-5.0) mmol/L Chloride 99.6 (98-107) mmol/L Carbon Dioxide 27 (22-30) mmol/L BUN 19 H (7-17) mg/dL Creatinine 1.4 H (0.7-1.2) mg/dL Glucose 136 H (65-100) mg/dL Calcium 8.5 (8.4-10.2) mg/dL AST 12 (5-40) units/L ALT 9 (7-56) units/L Alkaline Phosphatase 30 L (35-129) units/L Total Protein 5.6 L (6.3-8.2) g/dL Albumin 2.7 L (3.9-5) g/dL Assessment and Plan Acute CVA Hypertension, uncontrolled Elevated troponin, nonspecific Diabetes mellitus Noncompliant with medications Recommendations: Echocardiogram for LVEF assessment Primary team and neurology for CVA workup
--- NOTE | 2016-11-12 12:34 | Echocardiography Report ---
Transthoracic Echocardiogram Indication: Stroke BP: 146/63 Conclusions *1. Normal LV chamber size and function, EF 55-60%. *2. Severe concentric LVH. Findings Left Ventricle: The left ventricular chamber size is normal. Severe concentric left ventricular hypertrophy is observed. Global left ventricular wall motion and contractility are within normal limits. Global left ventricular systolic function is normal. The estimated ejection fraction is 55-60%. Abnormal left ventricular diastolic filling is observed, consistent with impaired relaxation. Left Atrium: The left atrial chamber size is normal. Right Ventricle: The right ventricle wall thickness is normal. The right ventricular cavity size is normal. The right ventricular global systolic function is normal. Right Atrium: The right atrial cavity size is normal. The interatrial septum appears normal. No atrial septal defected is demonstrated by agitated saline contrast. Aortic Valve: The aortic valve is trileaflet. The aortic valve leaflets are moderately thickened. Mild aortic leaflet calcification is visualized. Systolic excursion of the aortic valve is normal. There is trace of aortic regurgitation. There is no evidence of aortic stenosis. 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 The mitral valve leaflets are moderately thickened. There is mild mitral regurgitation. There is no evidence of mitral stenosis. Tricuspid Valve: The tricuspid valve leaflets are normal. There is trace tricuspid regurgitation. No pulmonary hypertension is noted. There is no tricuspid stenosis. Pulmonic Valve: The pulmonic valve appears normal. There is no evidence of pulmonic regurgitation. There is no pulmonic stenosis. Pericardium: A trivial pericardial effusion is visualized. Aorta: There is no dilatation of the ascending aorta. There is no dilatation of the aortic arch. There is no dilatation of the descending thoracic aorta. There is no dilatation of the aortic root. Venous: The inferior vena cava appears normal in size. Contrast: Intravenous agitated saline contrast was used to assess intracardiac shunting. Measurements Chambers MM Name Value Normal Range Ao root diameter (MM) 2.7 cm (2 - 3.7) LA dimension (AP) MM 3.6 cm (1.9 - 4) LA:Ao ratio (MM) 1.33 ratio - AV cusp separation (MM) 1.3 cm (1.5 - 2.6) Chambers 2D Name Value Normal Range RVIDd (AP) 2D 3.01 cm (0.9 - 2.6) IVSd (2D) 1.45 cm (0.6 - 1.1) LVPWd (2D) 1.43 cm (0.6 - 1.1) IVS:LVPW ratio (2D) 1.01 ratio - LVIDd (2D) 3.66 cm (3.7 - 5.6) LVIDs (2D) 2.28 cm (2 - 3.8) LV FS (Teichholz) (2D) 37.7 % - LV FS (cube) (2D) 37.7 % - EF Teichholz (2D) 68.7 % - LA dimension (AP) 2D 3.3 cm (1.9 - 4) Volumes/Mass Name Value Normal Range LA ESV SP 4CH (MOD) 23 ml - LA ESV SP 2CH (MOD) 22 ml - LA ESV BP (MOD) 25 ml - LA ESV BP (MOD) index 14 ml/m2 - Diastolic/Systolic Function Name Value Normal Range MV E-wave Vmax 0.74 m/sec - MV deceleration time 180 msec - MV A-wave Vmax 0.84 m/sec - MV E:A ratio 0.9 ratio - LV septal e' Vmax 0.06 m/sec - LV lateral e' Vmax 0.05 m/sec - LV E:e' septal ratio 11.8 ratio - LV E:e' lateral ratio 14.1 ratio - Aortic Valve Name Value Normal Range AV VTI 30.8 cm - AV mean gradient 7 mmHg - LVOT diameter 2 cm - LVOT VTI 17.4 cm - LVOT mean gradient 2 mmHg - SV LVOT 55 ml - GABRIELE (continuity VTI) 1.77 cm2 - Mitral Valve Name Value Normal Range MV PHT 47 msec - MVA (PHT) 4.68 cm2 - Pulmonic Valve/Qp:Qs Name Value Normal Range PV Vmax 0.98 m/sec - PV peak gradient 4 mmHg - NH end-diastolic Vmax 1.56 m/sec - PV acceleration time 127 msec -
--- NOTE | 2016-11-12 14:28 | Consultation ---
History of Present Illness - Reason for Consult Consult date: 11/12/16 Evaluate for Acute IRU - History of Present Illness 46 y.o. right handed female who reports acute onset of left sided heaviness. Pt has a prior history of CVA in Aug 2015; pt unclear of initial effects, however, reports she required a RW briefly due to gait instability and also reports some dysarthria at that time. MRI Brain shows acute lacunar infarct in the right hemisphere, right frontal and occipital lobes. On today, she reports improvement in left sided weakness; denies any N/V, no headache or parasthesias. Consult is requested for post acute placement recommendations. Past History Past Medical History: diabetes, hypertension, hyperlipidemia Past Surgical History: denies: No surgical history Social history: other (lives with boyfriend who works intermittently). denies: smoking, alcohol abuse Family history: hypertension, stroke Medications and Allergies Allergies Allergy/AdvReac Type Severity Reaction Status Date / Time cat dander Allergy Unknown Verified 02/28/16 15:34 Egg Derived Allergy Vomiting Verified 02/28/16 15:34 Home Medications Medication Instructions Recorded Confirmed Last Taken Type Aspirin [Aspirin BABY CHEW TAB] 81 mg PO QDAY 02/28/16 11/11/16 02/28/16 History Gabapentin [Neurontin] 300 mg PO Q8HR 02/28/16 11/11/16 02/28/16 History Gemfibrozil [Lopid] 600 mg PO BID 02/28/16 11/11/16 02/28/16 History Hydrochlorothiazide [HCTZ] 25 mg PO QDAY 02/28/16 11/11/16 02/28/16 History Ibuprofen [Motrin 200 MG tab] 200 mg PO Q6H PRN 02/28/16 11/11/16 02/28/16 History Lisinopril [Zestril TAB] 20 mg PO QDAY 02/28/16 11/11/16 02/28/16 History Metformin HCl [Glucophage] 1,000 mg PO BID 02/28/16 11/11/16 02/28/16 History Metoprolol [Lopressor TAB] 100 mg PO BID 02/28/16 11/11/16 02/28/16 History Pantoprazole [Protonix TAB] 40 mg PO BID 02/28/16 11/11/16 02/28/16 History Ranitidine HCl [Zantac 300 MG TAB] 300 mg PO QPM 02/28/16 11/11/16 02/28/16 History cloNIDine [Catapres] 0.1 mg PO BID 02/28/16 11/11/16 02/28/16 History amLODIPine [Norvasc] 10 mg PO QDAY #30 tablet 02/29/16 11/11/16 Unknown Rx Docusate Sodium [Colace] 100 mg PO BID PRN #60 capsule 06/26/16 11/11/16 Unknown Rx Insulin NPH/Regular [NovoLIN 70/30] 0 units SQ ACHS 11/11/16 11/11/16 Unknown History Active Meds: Active Medications Acetaminophen (Tylenol) 650 mg PO Q4H PRN PRN Reason: Pain, Mild (1-3) Last Admin: 11/11/16 22:22 Dose: 650 mg Aspirin (Aspirin) 325 mg PO QDAY [facility] Last Admin: 11/12/16 11:34 Dose: 325 mg Atorvastatin Calcium (Lipitor) 40 mg PO QHS [facility] Last Admin: 11/11/16 22:22 Dose: 40 mg Dextrose (D50w (25gm)) 50 ml IV PRN PRN PRN Reason: Hypoglycemia Docusate Sodium (Colace) 100 mg PO BID PRN PRN Reason: Constipation Last Admin: 11/11/16 14:42 Dose: 100 mg Gabapentin (Neurontin) 300 mg PO Q8HR [facility] Last Admin: 11/12/16 13:57 Dose: 300 mg Gemfibrozil (Lopid) 600 mg PO BID [facility] Last Admin: 11/12/16 11:30 Dose: 600 mg Hydralazine HCl (Apresoline) 10 mg IV Q6H PRN PRN Reason: htn Last Admin: 11/12/16 12:54 Dose: 10 mg Hydrochlorothiazide (Hctz) 25 mg PO QDAY [facility] Last Admin: 11/12/16 11:29 Dose: 25 mg Heparin Sodium/Sodium Chloride (Heparin/ 0.45% Nacl-25,000 Unit/500 Ml) 500 mls @ 20 mls/hr IV TITRATE HUGO; 1,000 UNITS/HR PRN Reason: Protocol Last Titration: 11/12/16 11:07 Dose: 1,200 units/hr Insulin Aspart (Novolog) 0 units SUB-Q ACHS [facility] PRN Reason: Protocol Last Admin: 11/12/16 12:56 Dose: Not Given Lisinopril (Zestril) 20 mg PO QDAY [facility] Last Admin: 11/12/16 11:29 Dose: 20 mg Metoprolol Tartrate (Lopressor) 100 mg PO BID [facility] Last Admin: 11/12/16 11:29 Dose: 100 mg Pantoprazole Sodium (Protonix) 40 mg PO BID [facility] Last Admin: 11/12/16 11:30 Dose: 40 mg Review of Systems All systems: negative Ears, nose, mouth and throat: no dysphagia, no headache Cardiovascular: no chest pain, no lightheadedness Respiratory: no cough, no shortness of breath Gastrointestinal: no abdominal pain, no nausea, no vomiting, no constipation Genitourinary Female: no dysuria Neurological: weakness (left extremities), no parathesias Exam - Constitutional Vitals: Vital Signs - 12hr 11/12/16 11/12/16 11/12/16 02:30 05:30 08:09 Temperature 98.3 F Pulse Rate 86 Pulse Rate [ 94 H Apical] Respiratory 20 Rate Blood Pressure 181/106 198/120 Blood Pressure 146/63 [Left Arm] O2 Sat by Pulse 99 Oximetry 11/12/16 11/12/16 11/12/16 08:15 12:46 12:54 Temperature 98.3 F 98.4 F Pulse Rate Pulse Rate [ 90 96 H Apical] Respiratory 20 20 Rate Blood Pressure 217/125 Blood Pressure 198/120 135/89 [Left Arm] O2 Sat by Pulse 100 95 Oximetry General appearance: no acute distress, other (brother present) - EENT Eyes: EOM intact ENT: hearing intact - Neck Neck: supple, normal ROM - Respiratory Respiratory effort: normal Respiratory: bilateral: CTA - Cardiovascular Rhythm: regular Heart Sounds: Present: S1 & S2 - Extremities Extremities: No edema - Gastrointestinal General gastrointestinal: Present: soft, non-tender, non-distended, normal bowel sounds - Integumentary Integumentary: Present: clear - Musculoskeletal Musculoskeletal: other (decreased ROM at left shoulder, however, 4/5 strength in left extremities) - Neurologic Neurologic: other (mild facial droop noted; sensation grossly intact) - Psychiatric Psychiatric: appropriate mood/affect, intact judgment & insight, memory intact, cooperative - Labs CBC & Chem 7: 11/11/16 17:13 11/11/16 15:41 Labs: Laboratory Results - last 72 hr 11/11/16 11/11/16 11/11/16 15:41 17:13 17:13 Hgb 11.9 Hct 37.4 Plt Count 296 PT 12.2 INR 0.91 APTT 33.0 Heparin Anti-Xa Level Sodium 138 Potassium 3.6 Chloride 99.6 Carbon Dioxide 27 Anion Gap 15 BUN 19 H Creatinine 1.4 H Estimated GFR 49 BUN/Creatinine Ratio 13.57 Glucose 136 H POC Glucose Calcium 8.5 Total Bilirubin < 0.2 AST 12 ALT 9 Alkaline Phosphatase 30 L Total Creatine Kinase 160 H CK-MB (CK-2) 7.5 H CK-MB (CK-2) Rel Index 4.6 H Troponin T Total Protein 5.6 L Albumin 2.7 L Albumin/Globulin Ratio 0.9 11/11/16 11/11/16 11/11/16 17:20 17:20 17:34 Hgb Hct Plt Count PT INR APTT Heparin Anti-Xa Level Sodium Potassium Chloride Carbon Dioxide Anion Gap BUN Creatinine Estimated GFR BUN/Creatinine Ratio Glucose POC Glucose 203 H Calcium Total Bilirubin AST ALT Alkaline Phosphatase Total Creatine Kinase 159 H CK-MB (CK-2) 6.8 H CK-MB (CK-2) Rel Index 4.2 H Troponin T 0.069 H Total Protein Albumin Albumin/Globulin Ratio 11/11/16 11/11/16 11/12/16 22:18 23:41 05:12 Hgb Hct Plt Count PT INR APTT Heparin Anti-Xa Level < 0.10 L Sodium Potassium Chloride Carbon Dioxide Anion Gap BUN Creatinine Estimated GFR BUN/Creatinine Ratio Glucose POC Glucose 208 H Calcium Total Bilirubin AST ALT Alkaline Phosphatase Total Creatine Kinase 116 CK-MB (CK-2) 4.1 H CK-MB (CK-2) Rel Index 3.5 Troponin T Total Protein Albumin Albumin/Globulin Ratio 11/12/16 11/12/16 05:12 07:39 Hgb Hct Plt Count PT INR APTT Heparin Anti-Xa Level 0.44 Sodium Potassium Chloride Carbon Dioxide Anion Gap BUN Creatinine Estimated GFR BUN/Creatinine Ratio Glucose POC Glucose Calcium Total Bilirubin AST ALT Alkaline Phosphatase Total Creatine Kinase CK-MB (CK-2) CK-MB (CK-2) Rel Index Troponin T 0.090 H D Total Protein Albumin Albumin/Globulin Ratio Assessment and Plan Patient was assessed and evaluated for Acute Inpatient Rehab Unit. 46 y.o. right handed female with acute right CVA with improving left sided hemiparesis. Rehab options discussed with patient and brother. Pt has a history of prior CVA; received home health for short period following event; also required the use of a RW briefly, however, was not using an assistive device just prior to recent admission. PT evaluation is pending; Neurology consult is also pending. Pt will require ongoing medical management per primary team for DM, HTN (BP ranging from 227-156/128-81). Placement recommendations to follow PT evaluation. Will continue to follow. Thank you for consultation. - Patient Problems (1) CVA (cerebral vascular accident) Current Visit: Yes Status: Acute (2) Hemiparesis affecting left side as late effect of cerebrovascular accident Current Visit: Yes Status: Acute (3) Diabetes mellitus Diagnosis Date: 11/11/16 Current Visit: Yes Status: Acute Qualifiers: Diabetes mellitus type: type 2 Diabetes mellitus complication status: with hyperglycemia Diabetes mellitus tank terminal gauger insulin use: without tank terminal gauger use Qualified Code(s): E11.65 - Type 2 diabetes mellitus with hyperglycemia (4) Uncontrolled hypertension Current Visit: Yes Status: Acute
[2016-11-12 14:37] LABS: Alanine Aminotransferase 8 units/L (7-56); Albumin 2.2 g/dL (3.9-5); Albumin/Globulin Ratio 0.7 %; Alkaline Phosphatase 33 units/L (35-129); BUN/Creatinine Ratio 13.57; Bilirubin,Total < 0.2 mg/dL (0.1-1.2); Blood Urea Nitrogen 19 mg/dL (7-17); Calcium 7.7 mg/dL (8.4-10.2); Carbon Dioxide 21 mmol/L (22-30); Chloride 98.4 mmol/L (98-107); Glucose 313 mg/dL (65-100); Potassium 4.4 mmol/L (3.6-5.0); Sodium 136 mmol/L (137-145); Total Protein 5.3 g/dL (6.3-8.2)
[2016-11-12 14:38] LABS: Anion Gap 21 mmol/L
[2016-11-12 16:27] LABS: Eosinophils % (Auto) 1.7 % (0.0-4.3); Hematocrit 38.9 % (30.3-42.9); Hemoglobin 12.6 gm/dl (10.1-14.3); Mean Corpuscular HGB Conc 33 % (30-34); Mean Corpuscular Hemoglobin 28 pg (28-32); Mean Corpuscular Volume 85 fl (79-97); Platelet Count 331 K/mm3 (140-440); Red Blood Count 4.59 M/mm3 (3.65-5.03); Red Cell Distribution Width 13.5 % (13.2-15.2); White Blood Count 9.3 K/mm3 (4.5-11.0)
--- NOTE | 2016-11-12 17:43 | Progress Note ---
Assessment and Plan Assessment and plan: Acute ischemic stroke. multiple (4) lacunar infarcts seen on right. Continue Aspirin daily. Will need SELAM because multiple infarcts. Consult cardiology. I discussed with them. Will make NPO after MN. May need anticoagulation. hypertension. Was on Lopressor, Lisinopril, HCTZ,Norvasc, Clonidine. Now on Lisinopril, HCTZ aand Lopressor. Will hold Lisinopril and HCTZ because of RENÉ. Resume Norvasc. Diabetes mellitus type 2. Check fingerstick Qac and HS Hyperlipidemia. Srtatins Acute kidney injury. Stop Lisinopril and HCTZ Elevated Troponins. Cardiology consulted. Started on Heparin. Full code status. History Interval history: Patient presents with numbness left upper and lower ext Hospitalist Physical - Physical exam Narrative exam: Gen:Not in acute distress, HEENT: Not in acute distress, Neck:supple, no JVD Lungs: clear to auscultation bilat, no crackles or wheeze Heart: S1 and S2 reg, no murmurs, rubs or gallop Abd: Soft, non tender, non distended, normal BS Ext: No edema, no clubbing, no cyanosis Neuro;awake,alert, oriented x 3, no focal weakness, decreased sensation, left upper and lower ext - Constitutional Vitals: Temp Pulse Resp BP Pulse Ox 98.6 F 94 H 20 153/90 98 11/12/16 16:50 11/12/16 16:50 11/12/16 16:50 11/12/16 16:50 11/12/16 16:50 General appearance: Present: no acute distress, other (brother present) Results - Labs CBC & Chem 7: 11/13/16 02:16 11/12/16 14:01 Labs: Laboratory Last Values WBC 9.3 K/mm3 (4.5-11.0) 11/12/16 16:12 RBC 4.59 M/mm3 (3.65-5.03) 11/12/16 16:12 Hgb 12.6 gm/dl (10.1-14.3) 11/12/16 16:12 Hct 38.9 % (30.3-42.9) 11/12/16 16:12 MCV 85 fl (79-97) 11/12/16 16:12 MCH 28 pg (28-32) 11/12/16 16:12 MCHC 33 % (30-34) 11/12/16 16:12 RDW 13.5 % (13.2-15.2) 11/12/16 16:12 Plt Count 331 K/mm3 (140-440) 11/12/16 16:12 Lymph % (Auto) 20.9 % (13.4-35.0) 11/12/16 16:12 [place] % (Auto) 9.7 % (0.0-7.3) H 11/12/16 16:12 Eos % (Auto) 1.7 % (0.0-4.3) 11/12/16 16:12 Baso % (Auto) 1.0 % (0.0-1.8) 11/12/16 16:12 Lymph # 1.9 K/mm3 (1.2-5.4) 11/12/16 16:12 [place] # 0.9 K/mm3 (0.0-0.8) H 11/12/16 16:12 Eos # 0.2 K/mm3 (0.0-0.4) 11/12/16 16:12 Baso # 0.1 K/mm3 (0.0-0.1) 11/12/16 16:12 Seg Neutrophils % 66.7 % (40.0-70.0) 11/12/16 16:12 Seg Neutrophils # 6.2 K/mm3 (1.8-7.7) 11/12/16 16:12 PT 12.2 Sec. (12.2-14.9) 11/11/16 17:13 INR 0.91 (0.87-1.13) 11/11/16 17:13 APTT 33.0 Sec. (24.2-36.6) 11/11/16 17:13 Thrombin Time 26.2 Sec. (15.1-19.6) H 11/11/16 11:29 Heparin Anti-Xa Level 0.44 U.I./ml (0.3-0.7) 11/12/16 07:39 Sodium 136 mmol/L (137-145) L 11/12/16 14:01 Potassium 4.4 mmol/L (3.6-5.0) D 11/12/16 14:01 Chloride 98.4 mmol/L (98-107) 11/12/16 14:01 Carbon Dioxide 21 mmol/L (22-30) L 11/12/16 14:01 Anion Gap 21 mmol/L 11/12/16 14:01 BUN 19 mg/dL (7-17) H 11/12/16 14:01 Creatinine 1.4 mg/dL (0.7-1.2) H 11/12/16 14:01 Estimated GFR 49 ml/min 11/12/16 14:01 BUN/Creatinine Ratio 13.57 % 11/12/16 14:01 Glucose 313 mg/dL (65-100) H 11/12/16 14:01 POC Glucose 164 (70-105) H 11/12/16 16:42 Calcium 7.7 mg/dL (8.4-10.2) L 11/12/16 14:01 Total Bilirubin < 0.2 mg/dL (0.1-1.2) 11/12/16 14:01 Direct Bilirubin < 0.2 mg/dL (0-0.2) 11/11/16 11:29 Indirect Bilirubin 0.0 mg/dL 11/11/16 11:29 AST 19 units/L (5-40) 11/12/16 14:01 ALT 8 units/L (7-56) 11/12/16 14:01 Alkaline Phosphatase 33 units/L (35-129) L 11/12/16 14:01 Total Creatine Kinase 116 units/L (30-135) 11/12/16 05:12 CK-MB (CK-2) 4.1 ng/mL (0.0-4.0) H 11/12/16 05:12 CK-MB (CK-2) Rel Index 3.5 (0-4) 11/12/16 05:12 Troponin T 0.090 ng/mL (0.00-0.029) H D 11/12/16 05:12 Total Protein 5.3 g/dL (6.3-8.2) L 11/12/16 14:01 Albumin 2.2 g/dL (3.9-5) L 11/12/16 14:01 Albumin/Globulin Ratio 0.7 % 11/12/16 14:01 Triglycerides 146 mg/dL (2-149) 11/11/16 11:29 Cholesterol 258 mg/dL (50-199) H 11/11/16 11:29 LDL Cholesterol Direct 150 mg/dL (50-130) H 11/11/16 11:29 HDL Cholesterol 79 mg/dL (40-59) H 11/11/16 11:29 Cholesterol/HDL Ratio 3.26 % 11/11/16 11:29
[2016-11-13 02:27] LABS: Hematocrit 35.9 % (30.3-42.9); Hemoglobin 11.4 gm/dl (10.1-14.3)
[2016-11-13] MEDS ORDERED: NACL 0.9% 1000 ML 1,000 ML IV SCH (06:00)
[2016-11-13] MEDS: NEURONTIN PO SCH ×3 (06:13→21:56)
[2016-11-13] MEDS: HCTZ PO SCH (09:17)
[2016-11-13] MEDS: PROTONIX PO SCH ×2 (09:18→21:56)
[2016-11-13] MEDS: LOPRESSOR PO SCH ×2 (09:18→21:57)
[2016-11-13] MEDS: COLACE PO PRN (09:18)
[2016-11-13] MEDS: NOVOLOG SUB-Q SCH ×3 (09:19→17:02)
[2016-11-13] MEDS: ASPIRIN PO SCH (09:19)
[2016-11-13] MEDS: LOPID PO SCH ×2 (09:19→21:58)
--- NOTE | 2016-11-13 10:47 | Query- Nutrition ---
Dear Date:_11/13/16 Custodial Worker/CDS:Ritchie Monroy Phone#: Exercise your independent professional judgment when responding to query. Questions asked do not imply a particular answer is desired or expected. We greatly appreciate your clarification on this issue. Clinical Documentation States: 46 y/o f admitted 11/11/16 for CVA and HTN. Patient has PMH of DM. Upon further review of her lab chem profile; Clinical Findings Show: Albumin 2.4-> 2.2 Total Protein 5.7-> 5.3 Calcium Level 8.5-> 7.7 Total Lymphocyte Count 2.0-> 1.9 Please select the most appropriate option 3 [] Mild Malnutrition [] Mild - Moderate Malnutrition [] Moderate - Severe Malnutrition [x] Severe Malnutrition Serum Albumin 2.8 to 3.4 g/dl or Pre-albumin 5 to 17 mg/dl1,2 Inadequate nutritional intake1,2,3,4 NPO > 5 days Weight loss: 5% in 1 month or 7.5% in 3 months or 10% in 6 months1, 3,4 BMI 16 to 18.4 or Weight <90% of ideal body weight1,2,3,4 Serum Albumin < 2.8 g/ dl1,2 Lymphocytes < 1500/ L2 Inadequate nutritional intake3, high stress e.g. major trauma, sepsis,pancreatitis, gomez etc. Decubitus ulcers1,2, , skin breakdown2, easy hair pluckability2 Weight <80% standard for height2 Triceps skin fold <3 mm2 Mid-arm muscle circumference <15 cm2 Creatinine-height index <60% standard2 [ ] Cachexia [ ] Emaciated w/Malnutrition [ ] Other: [ ] Unable to determine [ ] Comment/Explanation: Present on Admission: [ x] Yes (Y) [ ] Clinically undeterminable (W) [ ] No (N) Please also document response in your Progress Notes and/or Discharge Summary and indicate if the condition was present on admission. MTDD
--- NOTE | 2016-11-13 11:14 | Progress Note ---
Addendum entered and electronically signed by AJAY HEARN MD 11/13/16 19:53 : The patient is awaiting transesophageal echocardiography for assessment of cardioembolic source, after the finding of multiple acute lacunar infarcts on brain MRI. It is also noted that blood pressure has remained persistently high, over 200 systolic. We will add nifedipine XL to her regimen. Original Note: Assessment and Plan Acute CVA Hypertension, uncontrolled Elevated troponin, nonspecific Diabetes mellitus Noncompliant with medications Plan: Will add procardia XL 90mg for optimal BP control. Use clonidine as needed for BP greater [id number]. SELAM tomorrow morning for rule out cardioembolic source. Otherwise, no cardiac workup is indicated for nonspecific isolated mild rise in troponin. Subjective Date of service: 11/13/16 Interval history: Physical therapy at bedside. Patient has no complaints. BP still not optimal. Systolic BP greater than 220. Objective Vital Signs Temp Pulse Pulse Resp BP BP Pulse Ox 11/13/16 08:00 98.4 F 80 18 222/134 99 11/13/16 05:05 98.5 F 89 20 163/101 99 11/13/16 00:40 98.4 F 98 H 22 126/74 100 11/13/16 00:00 90 11/12/16 21:10 99.1 F 100 H 22 132/77 98 11/12/16 16:50 98.6 F 94 H 20 153/90 98 11/12/16 16:20 87 11/12/16 14:00 87 11/12/16 12:54 217/125 11/12/16 12:46 98.4 F 96 H 20 135/89 95 - Physical Examination General: No Apparent Distress HEENT: Positive: PERRL Neck: Positive: trachea midline Cardiac: Positive: Reg Rate and Rhythm Lungs: Positive: Decreased Breath Sounds - Labs and Meds Cardiac Enzymes 11/12/16 Range/Units 14:01 AST 19 (5-40) units/L CBC 11/12/16 11/13/16 Range/Units 16:12 02:16 WBC 9.3 (4.5-11.0) K/mm3 RBC 4.59 (3.65-5.03) M/mm3 Hgb 12.6 11.4 (10.1-14.3) gm/dl Hct 38.9 35.9 (30.3-42.9) % Plt Count 331 302 (140-440) K/mm3 Lymph # 1.9 (1.2-5.4) K/mm3 [place] # 0.9 H (0.0-0.8) K/mm3 Eos # 0.2 (0.0-0.4) K/mm3 Baso # 0.1 (0.0-0.1) K/mm3 Comprehensive Metabolic Panel 11/12/16 Range/Units 14:01 Sodium 136 L (137-145) mmol/L Potassium 4.4 D (3.6-5.0) mmol/L Chloride 98.4 (98-107) mmol/L Carbon Dioxide 21 L (22-30) mmol/L BUN 19 H (7-17) mg/dL Creatinine 1.4 H (0.7-1.2) mg/dL Glucose 313 H (65-100) mg/dL Calcium 7.7 L (8.4-10.2) mg/dL AST 19 (5-40) units/L ALT 8 (7-56) units/L Alkaline Phosphatase 33 L (35-129) units/L Total Protein 5.3 L (6.3-8.2) g/dL Albumin 2.2 L (3.9-5) g/dL
[2016-11-13] MEDS ORDERED: NITROSTAT SL PRN (12:48)
[2016-11-13] MEDS ORDERED: CATAPRES PO PRN (14:08)
[2016-11-13 14:30] LABS: Alanine Aminotransferase 7 units/L (7-56); Albumin/Globulin Ratio 0.7 %; Alkaline Phosphatase 26 units/L (35-129); BUN/Creatinine Ratio 11.76; Bilirubin,Total < 0.2 mg/dL (0.1-1.2); Blood Urea Nitrogen 20 mg/dL (7-17); Calcium 7.8 mg/dL (8.4-10.2); Carbon Dioxide 23 mmol/L (22-30); Chloride 103.4 mmol/L (98-107); Glucose 188 mg/dL (65-100); Potassium 3.8 mmol/L (3.6-5.0); Sodium 137 mmol/L (137-145); Total Protein 4.9 g/dL (6.3-8.2)
[2016-11-13 14:44] LABS: Anion Gap 14 mmol/L
[2016-11-13] MEDS: PROCARDIA XL PO SCH (15:01)
--- NOTE | 2016-11-13 15:01 | Event Note ---
Date: 11/13/16 IPR F/U, s/p CVA. Pt is seen on this afternoon. Therapy notes reviewed; pt is ambulating 200 feet x2 with CGA, supervision for transfers; Independent to SBA for ADLs; cleared for regular diet with thin liquids. Pt is pending SELAM in AM. Functionally, pt recommended for outpt PT at discharge. Please call for any further questions.
[2016-11-13] MEDS: HEPARIN/ 0.45% NACL-25,000 UNIT/500 ML 500 ML IV SCH (15:03)
--- NOTE | 2016-11-13 18:34 | Progress Note ---
Assessment and Plan Assessment and plan: --Acute ischemic stroke. multiple (4) acute lacunar infarcts seen on right. Continue Aspirin daily. And heparin drip, SELAM is scheduled for tomorrow in view of multiple infarcts --hypertension. Continue current antihypertensives and when necessary medications Moderate control --Diabetes mellitus type 2. Accu-Chek sliding scale coverage and ADA diet and insulin as needed --Hyperlipidemia. Stable on lipid-lowering medications --Acute kidney injury. Worsening renal function, avoid nephrotoxic medications gentle hydration --Elevated Troponins. Nonspecific Cardiology following continue current management SELAM tomorrow to rule out cardioembolic phenomenon causing acute CVA --Full code status. Physical therapy occupational therapy rehabilitation Consults and recommendations noted and appreciated Plan of care discussed with the patient family member as well as the nurse History Interval history: Patient seen and evaluated in her room this morning medical records reviewed Feels slightly better, acute rehabilitation evaluation noted and appreciated recommend outpatient physical therapy Patient is scheduled for SELAM tomorrow Patient feels better denies any chest pain shortness of breath headache dizziness Alert awake oriented 3 not in acute distress Hospitalist Physical - Constitutional Vitals: Temp Pulse Resp BP Pulse Ox 98.5 F 86 18 154/99 99 11/13/16 16:00 11/13/16 16:00 11/13/16 16:00 11/13/16 16:00 11/13/16 16:00 General appearance: Present: no acute distress, well-nourished, other (family member at the bedside) - EENT Eyes: Present: PERRL, EOM intact - Neck Neck: Present: supple, normal ROM - Respiratory Respiratory effort: normal, labored Respiratory: bilateral: diminished, negative: rales, rhonchi, wheezing - Cardiovascular Rhythm: regular Heart Sounds: Present: S1 & S2 - Extremities Extremities: no ischemia, pulses intact, pulses symmetrical Peripheral Pulses: within normal limits - Abdominal General gastrointestinal: soft, non-tender, non-distended, normal bowel sounds - Integumentary Integumentary: Present: clear, warm - Psychiatric Psychiatric: appropriate mood/affect, cooperative - Neurologic Neurologic: other (acute CVA with residual weakness) Results - Labs CBC & Chem 7: 11/13/16 02:16 11/13/16 13:49 Labs: Laboratory Last Values WBC 9.3 K/mm3 (4.5-11.0) 11/12/16 16:12 RBC 4.59 M/mm3 (3.65-5.03) 11/12/16 16:12 Hgb 11.4 gm/dl (10.1-14.3) 11/13/16 02:16 Hct 35.9 % (30.3-42.9) 11/13/16 02:16 MCV 85 fl (79-97) 11/12/16 16:12 MCH 28 pg (28-32) 11/12/16 16:12 MCHC 33 % (30-34) 11/12/16 16:12 RDW 13.5 % (13.2-15.2) 11/12/16 16:12 Plt Count 302 K/mm3 (140-440) 11/13/16 02:16 Lymph % (Auto) 20.9 % (13.4-35.0) 11/12/16 16:12 [place] % (Auto) 9.7 % (0.0-7.3) H 11/12/16 16:12 Eos % (Auto) 1.7 % (0.0-4.3) 11/12/16 16:12 Baso % (Auto) 1.0 % (0.0-1.8) 11/12/16 16:12 Lymph # 1.9 K/mm3 (1.2-5.4) 11/12/16 16:12 [place] # 0.9 K/mm3 (0.0-0.8) H 11/12/16 16:12 Eos # 0.2 K/mm3 (0.0-0.4) 11/12/16 16:12 Baso # 0.1 K/mm3 (0.0-0.1) 11/12/16 16:12 Seg Neutrophils % 66.7 % (40.0-70.0) 11/12/16 16:12 Seg Neutrophils # 6.2 K/mm3 (1.8-7.7) 11/12/16 16:12 PT 12.2 Sec. (12.2-14.9) 11/11/16 17:13 INR 0.91 (0.87-1.13) 11/11/16 17:13 APTT 33.0 Sec. (24.2-36.6) 11/11/16 17:13 Thrombin Time 26.2 Sec. (15.1-19.6) H 11/11/16 11:29 Heparin Anti-Xa Level 0.48 U.I./ml (0.3-0.7) 11/13/16 10:19 Sodium 137 mmol/L (137-145) 11/13/16 13:49 Potassium 3.8 mmol/L (3.6-5.0) 11/13/16 13:49 Chloride 103.4 mmol/L (98-107) 11/13/16 13:49 Carbon Dioxide 23 mmol/L (22-30) 11/13/16 13:49 Anion Gap 14 mmol/L 11/13/16 13:49 BUN 20 mg/dL (7-17) H 11/13/16 13:49 Creatinine 1.7 mg/dL (0.7-1.2) H 11/13/16 13:49 Estimated GFR 39 ml/min 11/13/16 13:49 BUN/Creatinine Ratio 11.76 % 11/13/16 13:49 Glucose 188 mg/dL (65-100) H 11/13/16 13:49 POC Glucose 225 (70-105) H 11/13/16 12:38 Calcium 7.8 mg/dL (8.4-10.2) L 11/13/16 13:49 Total Bilirubin < 0.2 mg/dL (0.1-1.2) 11/13/16 13:49 Direct Bilirubin < 0.2 mg/dL (0-0.2) 11/11/16 11:29 Indirect Bilirubin 0.0 mg/dL 11/11/16 11:29 AST 9 units/L (5-40) 11/13/16 13:49 ALT 7 units/L (7-56) 11/13/16 13:49 Alkaline Phosphatase 26 units/L (35-129) L 11/13/16 13:49 Total Creatine Kinase 116 units/L (30-135) 11/12/16 05:12 CK-MB (CK-2) 4.1 ng/mL (0.0-4.0) H 11/12/16 05:12 CK-MB (CK-2) Rel Index 3.5 (0-4) 11/12/16 05:12 Troponin T 0.090 ng/mL (0.00-0.029) H D 11/12/16 05:12 Total Protein 4.9 g/dL (6.3-8.2) L 11/13/16 13:49 Albumin 2.0 g/dL (3.9-5) L 11/13/16 13:49 Albumin/Globulin Ratio 0.7 % 11/13/16 13:49 Triglycerides 146 mg/dL (2-149) 11/11/16 11:29 Cholesterol 258 mg/dL (50-199) H 11/11/16 11:29 LDL Cholesterol Direct 150 mg/dL (50-130) H 11/11/16 11:29 HDL Cholesterol 79 mg/dL (40-59) H 11/11/16 11:29 Cholesterol/HDL Ratio 3.26 % 11/11/16 11:29
[2016-11-13 20:04] LABS: Basophils % (Auto) 1.1 % (0.0-1.8); Eosinophils % (Auto) 2.4 % (0.0-4.3); Hematocrit 36.8 % (30.3-42.9); Hemoglobin 11.7 gm/dl (10.1-14.3); Mean Corpuscular HGB Conc 32 % (30-34); Mean Corpuscular Hemoglobin 27 pg (28-32); Mean Corpuscular Volume 86 fl (79-97); Platelet Count 323 K/mm3 (140-440); Red Blood Count 4.29 M/mm3 (3.65-5.03); Red Cell Distribution Width 13.3 % (13.2-15.2); White Blood Count 8.7 K/mm3 (4.5-11.0)
[2016-11-14] MEDS: NOVOLOG SUB-Q SCH ×3 (00:33→13:10)
[2016-11-14] MEDS: NEURONTIN PO SCH ×2 (05:03→13:11)
[2016-11-14] MEDS ORDERED: SUBLIMAZE IV ONE (07:55)
[2016-11-14] MEDS ORDERED: VERSED IV ONE ×2 (07:55→08:22)
[2016-11-14] MEDS ORDERED: HURRICAINE ONE 20% TOPICAL SPRAY MM NR (08:00)
[2016-11-14] MEDS ORDERED: HURRICAINE ONE 20% TOPICAL SPRAY MM (08:21)
[2016-11-14] MEDS ORDERED: SUBLIMAZE ONE (08:22)
[2016-11-14] MEDS ORDERED: APRESOLINE ONE (10:23)
[2016-11-14] MEDS: APRESOLINE IV PRN (10:25)
--- NOTE | 2016-11-14 11:12 | Vascular Lab Report ---
CAROTID DUPLEX STUDY: RIGHT PSVEDV CCA PROX:60082 CCA DIST:79459 ICA PROX:4116 ICA MID:4315 ICA DIST:3812 ECA: [id number] VERT: 80 39 LEFT PSVEDV CCA PROX:16751 CCA DIST:25505 ICA PROX:20192 ICA MID:8446 ICA DIST:9148 ECA: [id number] VERT: 74 39 REASON FOR EXAM: TIA. COMMENTS ON THE RIGHT: Doppler frequency analysis is consistent with 16 to 49 percent diameter reduction of the internal carotid artery. Minimal amount of plaque is seen. The common carotid artery is patent. The external carotid artery is patent. The vertebral artery has antegrade flow. Multiple echolucent thyroid cysts are noted consistent with simple cyst. Clinical correlation recommended. COMMENTS ON THE LEFT: Doppler frequency analysis is consistent with 16 to 49 percent diameter reduction of the internal carotid artery. Minimal amount of plaque is seen. The common carotid artery is patent. The external carotid artery is patent. The vertebral artery has antegrade flow. IMPRESSION: Less than 50% diameter reduction in the internal carotid arteries bilaterally. Consider repeat carotid artery duplex in 12 months.
--- NOTE | 2016-11-14 11:47 | Progress Note ---
Assessment and Plan Acute CVA Four lacunar infarcts consistent with hypertensive etiology No cardioembolic source by SELAM Hypertension, uncontrolled Elevated troponin, nonspecific Diabetes mellitus Noncompliant with medications Plan: Discontinue IV heparin No further cardiac workup is indicated for nonspecific isolated mild rise in troponin. Subjective Date of service: 11/14/16 Principal diagnosis: CVA Interval history: Patient underwent a SELAM today without complications - no cardioembolic source Objective Vital Signs Temp Pulse Pulse Pulse Pulse Pulse Pulse 11/14/16 10:53 92 H 11/14/16 10:50 92 H 11/14/16 10:45 91 H 11/14/16 10:30 93 H 11/14/16 10:25 103 H 97 H 11/14/16 10:20 96 H 11/14/16 05:02 97.4 F L 89 11/14/16 00:00 98.8 F 90 11/13/16 23:57 88 11/13/16 20:34 98.1 F 96 H 11/13/16 16:00 98.5 F 86 11/13/16 13:00 88 11/13/16 12:55 88 11/13/16 12:48 98.1 F 88 11/13/16 12:00 Resp Resp Resp BP BP BP BP 11/14/16 10:53 20 99/65 11/14/16 10:50 12 85/56 11/14/16 10:45 14 82/51 11/14/16 10:30 22 146/95 11/14/16 10:25 20 182/85 182/115 11/14/16 10:20 16 179/108 11/14/16 05:02 21 132/83 11/14/16 00:00 20 139/89 11/13/16 23:57 11/13/16 20:34 20 137/87 11/13/16 16:00 18 154/99 11/13/16 13:00 136/90 11/13/16 12:55 224/118 11/13/16 12:48 18 224/118 11/13/16 12:00 226/121 Pulse Ox Pulse Ox Pulse Ox 11/14/16 10:53 100 11/14/16 10:50 100 11/14/16 10:45 100 11/14/16 10:30 100 11/14/16 10:25 97 11/14/16 10:20 100 11/14/16 05:02 98 11/14/16 00:00 100 11/13/16 23:57 11/13/16 20:34 99 11/13/16 16:00 99 11/13/16 13:00 11/13/16 12:55 11/13/16 12:48 99 11/13/16 12:00 - Physical Examination General: No Apparent Distress HEENT: Positive: PERRL Neck: Positive: trachea midline Cardiac: Positive: Reg Rate and Rhythm Lungs: Positive: Normal Exam - Labs and Meds Cardiac Enzymes 11/13/16 Range/Units 13:49 AST 9 (5-40) units/L CBC 11/13/16 Range/Units 19:15 WBC 8.7 (4.5-11.0) K/mm3 RBC 4.29 (3.65-5.03) M/mm3 Hgb 11.7 (10.1-14.3) gm/dl Hct 36.8 (30.3-42.9) % Plt Count 323 (140-440) K/mm3 Lymph # 2.5 (1.2-5.4) K/mm3 Ed[place]on # 0.9 H (0.0-0.8) K/mm3 Eos # 0.2 (0.0-0.4) K/mm3 Baso # 0.1 (0.0-0.1) K/mm3 Comprehensive Metabolic Panel 11/13/16 Range/Units 13:49 Sodium 137 (137-145) mmol/L Potassium 3.8 (3.6-5.0) mmol/L Chloride 103.4 (98-107) mmol/L Carbon Dioxide 23 (22-30) mmol/L BUN 20 H (7-17) mg/dL Creatinine 1.7 H (0.7-1.2) mg/dL Glucose 188 H (65-100) mg/dL Calcium 7.8 L (8.4-10.2) mg/dL AST 9 (5-40) units/L ALT 7 (7-56) units/L Alkaline Phosphatase 26 L (35-129) units/L Total Protein 4.9 L (6.3-8.2) g/dL Albumin 2.0 L (3.9-5) g/dL
--- NOTE | 2016-11-14 12:29 | TEE Report ---
Transesophageal Echocardiogram Conclusions *The left ventricular chamber size is normal. *Severe concentric left ventricular hypertrophy is observed. *The estimated ejection fraction is 60-65%. *The left atrium is mildly dilated. *No cardioemolic source by SELAM. Findings Procedure Info: The study quality is good. SELAM Procedures: The posterior pharynx was anesthetized. The patient was placed in a left lateral recumbent position and a plastic bite block was inserted into the mouth. IV sedation was administered. A transesophageal echocardiography probe was inserted into the posterior pharynx and the esophagus was then intubated without difficulty. Multiple views were then obtained from the upper, mid and lower esophagus and the gastric fundus. The scope was rotated 180 degrees and the aorta was visualized. The scope withdrawn under continuous suction. The patient tolerated the procedure well without any apparent complications. The procedure and risk were explained to the patient who consented to the study. Left Ventricle: The left ventricular chamber size is normal. Severe concentric left ventricular hypertrophy is observed. Global left ventricular systolic function is normal. The estimated ejection fraction is 60-65%. Left Atrium: The left atrium is mildly dilated. There is no thrombus visualized in the left atrial appendage. Right Ventricle: The right ventricular cavity size is normal. The right ventricular global systolic function is normal. Right Atrium: The right atrial cavity size is normal. No atrial septal defected is demonstrated by color Doppler and agitated saline contrast. Aortic Valve: The aortic valve is trileaflet. The leaflets are thin with normal excursion. There is no aortic stenosis or regurgitation present. Mitral Valve: The mitral valve leaflets are mildly thickened. There is mild mitral regurgitation. Tricuspid Valve: There is mild tricuspid regurgitation. Pulmonic Valve: The pulmonic valve appears normal in structure and function. Pericardium: There is no pericardial effusion. Aorta: The aorta appears normal.
[2016-11-14] MEDS: PROCARDIA XL PO SCH (13:11)
[2016-11-14] MEDS: ASPIRIN PO SCH (13:12)
[2016-11-14] MEDS: HCTZ PO SCH (13:12)
[2016-11-14] MEDS: LOPRESSOR PO SCH (13:12)
[2016-11-14] MEDS: PROTONIX PO SCH (13:13)
[2016-11-14] MEDS: LOPID PO SCH (13:14)
--- NOTE | 2016-11-14 13:29 | Consultation ---
History of Present Illness Consult date: 11/14/16 Chief complaint: left sided weakness History of present illness: This is a 46 YO F who wok up with left sided weakness, she was not an IV tPA candidate. Pt found to have embolic strokes on MRI Brain. SELAM without and embolic source. I am seeing the patient just after SELAM and she is sedated but can answer some questions. Past History Past Medical History: diabetes, hypertension, hyperlipidemia Past Surgical History: denies: No surgical history Social history: other (lives with boyfriend who works intermittently). denies: smoking, alcohol abuse Family history: hypertension, stroke Medications and Allergies Allergies Allergy/AdvReac Type Severity Reaction Status Date / Time cat dander Allergy Unknown Verified 02/28/16 15:34 Egg Derived Allergy Vomiting Verified 02/28/16 15:34 Home Medications Medication Instructions Recorded Confirmed Last Taken Type Aspirin [Aspirin BABY CHEW TAB] 81 mg PO QDAY 02/28/16 11/11/16 02/28/16 History Gabapentin [Neurontin] 300 mg PO Q8HR 02/28/16 11/11/16 02/28/16 History Gemfibrozil [Lopid] 600 mg PO BID 02/28/16 11/11/16 02/28/16 History Hydrochlorothiazide [HCTZ] 25 mg PO QDAY 02/28/16 11/11/16 02/28/16 History Ibuprofen [Motrin 200 MG tab] 200 mg PO Q6H PRN 02/28/16 11/11/16 02/28/16 History Lisinopril [Zestril TAB] 20 mg PO QDAY 02/28/16 11/11/16 02/28/16 History Metformin HCl [Glucophage] 1,000 mg PO BID 02/28/16 11/11/16 02/28/16 History Metoprolol [Lopressor TAB] 100 mg PO BID 02/28/16 11/11/16 02/28/16 History Pantoprazole [Protonix TAB] 40 mg PO BID 02/28/16 11/11/16 02/28/16 History Ranitidine HCl [Zantac 300 MG TAB] 300 mg PO QPM 02/28/16 11/11/16 02/28/16 History cloNIDine [Catapres] 0.1 mg PO BID 02/28/16 11/11/16 02/28/16 History amLODIPine [Norvasc] 10 mg PO QDAY #30 tablet 02/29/16 11/11/16 Unknown Rx Docusate Sodium [Colace] 100 mg PO BID PRN #60 capsule 06/26/16 11/11/16 Unknown Rx Insulin NPH/Regular [NovoLIN 70/30] 0 units SQ ACHS 11/11/16 11/11/16 Unknown History Active Meds: Active Medications Acetaminophen (Tylenol) 650 mg PO Q4H PRN PRN Reason: Pain, Mild (1-3) Last Admin: 11/11/16 22:22 Dose: 650 mg Aspirin (Aspirin) 325 mg PO QDAY [facility] Last Admin: 11/14/16 13:12 Dose: 325 mg Atorvastatin Calcium (Lipitor) 40 mg PO QHS [facility] Last Admin: 11/13/16 21:55 Dose: 40 mg Benzocaine (Hurricaine One 20% Topical [place]) 3 spray MM PREOP NR Stop: 11/14/16 23:59 Last Admin: 11/14/16 10:20 Dose: 3 spray Clonidine HCl (Catapres) 0.1 mg PO Q4H PRN PRN Reason: Systolic BP greater than 150 Last Admin: 11/14/16 13:12 Dose: 0.1 mg Dextrose (D50w (25gm)) 50 ml IV PRN PRN PRN Reason: Hypoglycemia Docusate Sodium (Colace) 100 mg PO BID PRN PRN Reason: Constipation Last Admin: 11/13/16 09:18 Dose: 100 mg Gabapentin (Neurontin) 300 mg PO Q8HR [facility] Last Admin: 11/14/16 13:11 Dose: 300 mg Gemfibrozil (Lopid) 600 mg PO BID [facility] Last Admin: 11/14/16 13:14 Dose: 600 mg Hydralazine HCl (Apresoline) 10 mg IV Q6H PRN PRN Reason: htn Last Admin: 11/14/16 10:25 Dose: 10 mg Hydrochlorothiazide (Hctz) 25 mg PO QDAY [facility] Last Admin: 11/14/16 13:12 Dose: 25 mg Sodium Chloride (Nacl 0.9% 1000 Ml) 1,000 mls @ 100 mls/hr IV DIRECT [facility] Last Admin: 11/14/16 13:16 Dose: 100 mls/hr Insulin Aspart (Novolog) 0 units SUB-Q ACHS [facility] PRN Reason: Protocol Last Admin: 11/14/16 13:10 Dose: 2 units Metoprolol Tartrate (Lopressor) 100 mg PO BID [facility] Last Admin: 11/14/16 13:12 Dose: 100 mg Nifedipine (Procardia Xl) 90 mg PO QDAY [facility] Last Admin: 11/14/16 13:11 Dose: 90 mg Nitroglycerin (Nitrostat) 0.4 mg SL .Q5MIN PRN PRN Reason: Chest Pain Last Admin: 11/13/16 12:55 Dose: 0.4 mg Pantoprazole Sodium (Protonix) 40 mg PO BID [facility] Last Admin: 11/14/16 13:13 Dose: 40 mg Review of Systems ROS unobtainable: due to mental status Physical Examination - Vital Signs Vital Signs: Vital Signs Temp Pulse BP Pulse Ox 98.4 F 91 H 170/110 16 L 11/11/16 10:44 11/11/16 10:44 11/11/16 10:44 11/11/16 10:44 - Respiratory Respiratory: Present: lungs clear - Gastrointestinal Gastrointestinal: Present: normoactive bowel sounds - Neurologic Cranial nerve examination: PERRL, EOMI, V1/V2/V3 grossly intact, face symmetric , facial droop Speech examination: intact Motor examination - right side: 5/5: biceps, triceps, wrist flexion, wrist extension, hair stylist, hip flexors, knee extensors, dorsiflexion, toe extension (EHL) , plantarflexion Motor examination - left side: 4/5: biceps, triceps, wrist flexion, wrist extension, hair stylist, hip flexors, knee extensors, dorsiflexion, toe extension (EHL) , plantarflexion Reflexes: 1+: ankle, bicep, knee, tricep Results - Laboratory Findings CBC and BMP: 11/13/16 19:15 11/13/16 13:49 Abnormal Lab Findings: Abnormal Labs 11/11/16 11/11/16 11/11/16 15:41 17:20 17:20 [facility] [place] % (Auto) [place] # Heparin Anti-Xa Level Sodium Carbon Dioxide BUN 19 H Creatinine 1.4 H Glucose 136 H POC Glucose Calcium Alkaline Phosphatase 30 L Total Creatine Kinase 160 H 159 H CK-MB (CK-2) 7.5 H 6.8 H CK-MB (CK-2) Rel Index 4.6 H 4.2 H Troponin T 0.069 H Total Protein 5.6 L Albumin 2.7 L 11/11/16 11/11/16 11/11/16 17:34 22:18 23:41 MCH [place] % (Auto) [place] # Heparin Anti-Xa Level < 0.10 L Sodium Carbon Dioxide BUN Creatinine Glucose POC Glucose 203 H 208 H Calcium Alkaline Phosphatase Total Creatine Kinase CK-MB (CK-2) CK-MB (CK-2) Rel Index Troponin T Total Protein Albumin 11/12/16 11/12/16 11/12/16 05:12 05:12 07:54 MCH [place] % (Auto) [place] # Heparin Anti-Xa Level Sodium Carbon Dioxide BUN Creatinine Glucose POC Glucose 152 H Calcium Alkaline Phosphatase Total Creatine Kinase CK-MB (CK-2) 4.1 H CK-MB (CK-2) Rel Index Troponin T 0.090 H D Total Protein Albumin 11/12/16 11/12/16 11/12/16 12:23 14:01 16:12 MCH [place] % (Auto) 9.7 H [place] # 0.9 H Heparin Anti-Xa Level Sodium 136 L Carbon Dioxide 21 L BUN 19 H Creatinine 1.4 H Glucose 313 H POC Glucose 135 H Calcium 7.7 L Alkaline Phosphatase 33 L Total Creatine Kinase CK-MB (CK-2) CK-MB (CK-2) Rel Index Troponin T Total Protein 5.3 L Albumin 2.2 L 11/12/16 11/12/16 11/12/16 16:42 17:09 21:58 MCH [place] % (Auto) [place] # Heparin Anti-Xa Level < 0.10 L Sodium Carbon Dioxide BUN Creatinine Glucose POC Glucose 164 H 177 H Calcium Alkaline Phosphatase Total Creatine Kinase CK-MB (CK-2) CK-MB (CK-2) Rel Index Troponin T Total Protein Albumin 11/13/16 11/13/16 11/13/16 01:08 08:46 12:38 MCH [place] % (Auto) [place] # Heparin Anti-Xa Level 0.16 L Sodium Carbon Dioxide BUN Creatinine Glucose POC Glucose 177 H 225 H Calcium Alkaline Phosphatase Total Creatine Kinase CK-MB (CK-2) CK-MB (CK-2) Rel Index Troponin T Total Protein Albumin 11/13/16 11/13/16 11/13/16 13:49 19:15 21:40 MCH 27 L [place] % (Auto) 10.5 H [place] # 0.9 H Heparin Anti-Xa Level Sodium Carbon Dioxide BUN 20 H Creatinine 1.7 H Glucose 188 H POC Glucose 267 H Calcium 7.8 L Alkaline Phosphatase 26 L Total Creatine Kinase CK-MB (CK-2) CK-MB (CK-2) Rel Index Troponin T Total Protein 4.9 L Albumin 2.0 L 11/14/16 05:09 MCH [place] % (Auto) [place] # Heparin Anti-Xa Level 0.23 L Sodium Carbon Dioxide BUN Creatinine Glucose POC Glucose Calcium Alkaline Phosphatase Total Creatine Kinase CK-MB (CK-2) CK-MB (CK-2) Rel Index Troponin T Total Protein Albumin - Diagnostic Findings Additional findings: MRI brain with lacunes in the right frontal and occipital lobes Assessment and Plan Embolic stroke Recommend: Would send pt out on aspirin and plavix for 3 months. would then stop aspirin and continue plavix. would not anticoagulate in light of no embolic source found. statin daily VTE prophylaxis PT/OT/ST ? rehab continue care for her medical issues as you are doing. Non aggressive BP management Thank you for this consult. Call with questions.
--- NOTE | 2016-11-14 15:33 | Discharge Summary ---
Providers - Providers Date of Admission: 11/11/16 13:29 Date of discharge: 11/14/16 Attending physician: ADALGISA MORRIS 11/12/16 08:52 Physical Therapy Evaluation and Treat [CONS] Routine Comment: Reason For Exam: CVA 11/12/16 11:41 Consult to Physician [CONS] Routine Consulting Provider: YOLA FAN Reason For Exam: Stroke. Multiple lacunar infarcts Place consult to:: Dr. Pradip miller Notified:: Dr. Pradip miller 11/12/16 12:56 Consult Acute Rehabilitation [CONS] Routine Consulting Provider: LINDA SOMERS Reason For Exam: cva 11/12/16 14:21 Occupational Therapy Evaluate and Treat [CONS] Routine Comment: Reason For Exam: stroke Speech Therapy Evaluation and Treat [CONS] Routine Reason For Exam: stroke Primary care physician: CONTRACT CONSULTANT Hospitalization Condition: Stable Disposition: DC/TX HOME UNDER HOME [facility] Time spent for discharge: 32min Core Measure Documentation - Palliative Care Palliative Care/ Comfort Measures: Not Applicable - Core Measures Any of the following diagnoses?: stroke - Stroke Discharge Requirements Statin for LDL = or >70 mg/dl on DC: Yes Anticoag for atrial fib/atrial flutter: Not Applicable Antithrombotic for ischemic stroke: Yes Exam - Constitutional Vitals: Temp Pulse Resp BP Pulse Ox 97.6 F 107 H 18 193/107 98 11/14/16 12:00 11/14/16 12:00 11/14/16 12:00 11/14/16 12:00 11/14/16 12:00 General appearance: Present: no acute distress, well-nourished - EENT Eyes: Present: PERRL, EOM intact - Neck Neck: Present: supple, normal ROM - Respiratory Respiratory effort: normal Respiratory: negative: rales, rhonchi, wheezing - Cardiovascular Rhythm: regular Heart Sounds: Present: S1 & S2 - Extremities Extremities: no ischemia, pulses intact, pulses symmetrical Peripheral Pulses: within normal limits - Abdominal General gastrointestinal: Present: soft, non-tender, non-distended, normal bowel sounds - Integumentary Integumentary: Present: clear, warm - Musculoskeletal Musculoskeletal: strength equal bilaterally - Psychiatric Psychiatric: appropriate mood/affect, cooperative - Neurologic Neurologic: other (residual weakness) Plan Activity: advance as tolerated, fall precautions Diet: low cholesterol, low salt, diabetic Special Instructions: physical therapy, occupational therapy Additional Instructions: Neurology recommended. Aspirin and Plavix for 3 months. To discontinue aspirin and continue Plavix and statin. SELAM negative, for cardioembolic source. Home physical therapy and occupational therapy Follow up with: PRIMARY CAREMD [Primary Care Provider] - 7 Days NELLY COTTRELL MD [Staff Physician] - 7 Days Prescriptions: AtorvaSTATin [Lipitor] 40 mg PO QHS #30 tablet Clopidogrel [Plavix] 75 mg PO QDAY #30 tablet NIFEdipine XL [Procardia Xl] 90 mg PO QDAY #30 tablet
[2016-11-14 17:30] VITALS: BP 103/67
== END 2016-11-14 17:31 | disposition home health service (06) | DRG 64 ==
LOC: ED 10:40 → 4A 13:29
PROVIDERS: ADMIT Family Medicine; ATTEND Internal Medicine
DX: I63.40 Cerebral infarction due to embolism of unspecified cerebral artery (principal); E43 Unspecified severe protein-calorie malnutrition; I10 Essential (primary) hypertension; E11.65 Type 2 diabetes mellitus with hyperglycemia; N17.9 Acute kidney failure, unspecified; I69.354 Hemiplegia and hemiparesis following cerebral infarction affecting left non-dominant side; Z91.012 Allergy to eggs; Z79.82 Long term (current) use of aspirin; Z79.4 Long term (current) use of insulin; E78.5 Hyperlipidemia, unspecified; Z82.49 Family history of ischemic heart disease and other diseases of the circulatory system; Z82.3 Family history of stroke; Z91.14 Patient's other noncompliance with medication regimen; Z68.32 Body mass index [BMI] 32.0-32.9, adult
CPT/HCPCS: 36415; 70450; 70551; 71010; 80048; 80053; 80061; 80074; 82550; 82553; 82962; 84484; 85014; 85018; 85025; 85049; 85520; 85610; 85670; 85730; 93005; 93010; 93306; 93312; 93320; 93325; 93880; 96374; A9270-GY; J0360; J1644; J1815; J2250; J3010; J7030

== ENCOUNTER 2016-12-17 15:31 | Emergency (ER) | payer MEDICAID, OTHER ==
[2016-12-17 17:14] LABS: Hematocrit 42.6 % (30.3-42.9); Hemoglobin 13.5 gm/dl (10.1-14.3); Mean Corpuscular HGB Conc 32 % (30-34); Mean Corpuscular Hemoglobin 27 pg (28-32); Mean Corpuscular Volume 85 fl (79-97); Platelet Count 397 K/mm3 (140-440); Red Cell Distribution Width 13.6 % (13.2-15.2); White Blood Count 7.8 K/mm3 (4.5-11.0)
[2016-12-17 17:21] LABS: Calcium 8.9 mg/dL (8.4-10.2); Chloride 98.4 mmol/L (98-107); Potassium 4.4 mmol/L (3.6-5.0)
[2016-12-17] MEDS ORDERED: APRESOLINE IV ONE (21:20)
--- NOTE | 2016-12-17 21:39 | Emergency Department Report ---
ED General Adult HPI - General Chief complaint: High BP Stated complaint: WEAKNESS/R/O CVA Time Seen by Provider: 12/17/16 21:00 Source: patient Mode of arrival: Ambulatory Limitations: No Limitations - History of Present Illness Initial comments: 46-year-old female presents to the emergency department complaining of headache and blurry vision. Patient states that she went to see her new primary care physician today and was sent to the emergency department due to continually elevated blood pressure. Patient reports throbbing pain across her for head that began yesterday. Pain has been constant. She also reports generalized fatigue. She denies chest pain or difficulty breathing. Patient states she has been compliant with her blood pressure medication. Patient is concerned she may be having another stroke. There are no other complaints. -: Gradual, days(s) (1) Location: head Radiation: non-radiation Severity scale (0 -10): 7 Quality: other (throbbing) Consistency: constant Improves with: none Worsens with: none Associated Symptoms: other (fatigue, blurry vision) Treatments Prior to Arrival: none - Related Data Home Medications Medication Instructions Recorded Confirmed Last Taken Aspirin [Aspirin BABY CHEW TAB] 81 mg PO QDAY 02/28/16 11/11/16 02/28/16 Gabapentin [Neurontin] 300 mg PO Q8HR 02/28/16 11/11/16 02/28/16 Hydrochlorothiazide [HCTZ] 25 mg PO QDAY 02/28/16 11/11/16 02/28/16 Lisinopril [Zestril TAB] 20 mg PO QDAY 02/28/16 11/11/16 02/28/16 Metformin HCl [Glucophage] 1,000 mg PO BID 02/28/16 11/11/16 02/28/16 Metoprolol [Lopressor TAB] 100 mg PO BID 02/28/16 11/11/16 02/28/16 Pantoprazole [Protonix TAB] 40 mg PO BID 02/28/16 11/11/16 02/28/16 Ranitidine HCl [Zantac 300 MG TAB] 300 mg PO QPM 02/28/16 11/11/16 02/28/16 cloNIDine [Catapres] 0.1 mg PO BID 02/28/16 11/11/16 02/28/16 Previous Rx's Medication Instructions Recorded Last Taken Type Docusate Sodium [Colace CAP] 100 mg PO BID PRN #60 capsule 06/26/16 Unknown Rx AtorvaSTATin [Lipitor] 40 mg PO QHS #30 tablet 11/14/16 Unknown Rx Clopidogrel [Plavix] 75 mg PO QDAY #30 tablet 11/14/16 Unknown Rx NIFEdipine XL [Procardia Xl] 90 mg PO QDAY #30 tablet 11/14/16 Unknown Rx Butalb/Acetamin/Caff 50-325-40 1 each PO Q4H PRN #20 tablet 12/17/16 Unknown Rx [Fioricet] Allergies Allergy/AdvReac Type Severity Reaction Status Date / Time cat dander Allergy Unknown Verified 02/28/16 15:34 Egg Derived Allergy Vomiting Verified 02/28/16 15:34 ED Review of Systems ROS: Stated complaint: WEAKNESS/R/O CVA Other details as noted in HPI Comment: All other systems reviewed and negative Constitutional: other (fatigue) Eyes: vision change Neurological: headache ED Past Medical Hx - Past Medical History Previous Medical History?: Yes Hx Hypertension: Yes Hx CVA: Yes Hx Congestive Heart Failure: No Hx Diabetes: Yes Hx Asthma: No Hx COPD: No Additional medical history: high cholesterol - Surgical History Past Surgical History?: No - Family History Family history: no significant - Social History Smoking Status: Never Smoker Substance Use Type: None - Medications Home Medications: Home Medications Medication Instructions Recorded Confirmed Last Taken Type Aspirin [Aspirin BABY CHEW TAB] 81 mg PO QDAY 02/28/16 11/11/16 02/28/16 History Gabapentin [Neurontin] 300 mg PO Q8HR 02/28/16 11/11/16 02/28/16 History Hydrochlorothiazide [HCTZ] 25 mg PO QDAY 02/28/16 11/11/16 02/28/16 History Lisinopril [Zestril TAB] 20 mg PO QDAY 02/28/16 11/11/16 02/28/16 History Metformin HCl [Glucophage] 1,000 mg PO BID 02/28/16 11/11/16 02/28/16 History Metoprolol [Lopressor TAB] 100 mg PO BID 02/28/16 11/11/16 02/28/16 History Pantoprazole [Protonix TAB] 40 mg PO BID 02/28/16 11/11/16 02/28/16 History Ranitidine HCl [Zantac 300 MG TAB] 300 mg PO QPM 02/28/16 11/11/16 02/28/16 History cloNIDine [Catapres] 0.1 mg PO BID 02/28/16 11/11/16 02/28/16 History Docusate Sodium [Colace CAP] 100 mg PO BID PRN #60 capsule 06/26/16 11/11/16 Unknown Rx AtorvaSTATin [Lipitor] 40 mg PO QHS #30 tablet 11/14/16 Unknown Rx Clopidogrel [Plavix] 75 mg PO QDAY #30 tablet 11/14/16 Unknown Rx NIFEdipine XL [Procardia Xl] 90 mg PO QDAY #30 tablet 11/14/16 Unknown Rx Butalb/Acetamin/Caff 50-325-40 1 each PO Q4H PRN #20 tablet 12/17/16 Unknown Rx [Fioricet] ED Physical Exam - General Limitations: No Limitations General appearance: alert, in no apparent distress - Head Head exam: Present: atraumatic, normocephalic - Eye Eye exam: Present: normal appearance, PERRL, EOMI - ENT ENT exam: Present: normal exam, normal orophraynx, mucous membranes moist - Neck Neck exam: Present: normal inspection, full ROM. Absent: tenderness - Respiratory Respiratory exam: Present: normal lung sounds bilaterally. Absent: respiratory distress - Cardiovascular Cardiovascular Exam: Present: regular rate, normal rhythm, normal heart sounds - GI/Abdominal GI/Abdominal exam: Present: soft, normal bowel sounds. Absent: distended, tenderness - Extremities Exam Extremities exam: Present: normal inspection, full ROM. Absent: tenderness - Back Exam Back exam: Present: normal inspection, full ROM. Absent: tenderness - Neurological Exam Neurological exam: Present: alert, oriented X3. Absent: motor sensory deficit - Skin Skin exam: Present: warm, dry, intact ED Course Vital Signs 12/17/16 12/17/16 12/17/16 16:21 18:53 21:08 Temperature 98.7 F 98.3 F Pulse Rate 78 89 Respiratory 18 20 18 Rate Blood Pressure 176/124 140/101 Blood Pressure [Left] O2 Sat by Pulse 100 Oximetry 12/17/16 12/17/16 12/17/16 21:10 21:30 21:47 Temperature Pulse Rate 84 88 88 Respiratory 18 18 Rate Blood Pressure 199/110 Blood Pressure 198/116 199/110 [Left] O2 Sat by Pulse 98 98 Oximetry 12/17/16 22:24 Temperature Pulse Rate 84 Respiratory 18 Rate Blood Pressure Blood Pressure 158/98 [Left] O2 Sat by Pulse 98 Oximetry ED Medical Decision Making - Lab Data Result diagrams: 12/17/16 16:49 12/17/16 16:49 - Radiology Data Radiology results: report reviewed, image reviewed CT of the brain shows no acute intracranial abnormality. - Medical Decision Making Lab and imaging results reviewed and discussed with the patient and family. Patient's blood pressure is currently rating 122/75. Headache is much improved with medication. Patient will be discharged home at this time to follow up with her primary care physician. - Differential Diagnosis hypertension, tension headache Critical care attestation.: If time is entered above; I have spent that time in minutes in the direct care of this critically ill patient, excluding procedure time. ED Disposition Clinical Impression: Uncontrolled hypertension Head ache Qualifiers: Headache type: tension-type Headache chronicity pattern: acute headache Intractability: not intractable Qualified Code(s): G44.209 - Tension-type headache, unspecified, not intractable Disposition: DISCHARGED TO HOME OR SELFCARE Is pt being admited?: No Condition: Stable Instructions: Hypertension (ED), Acute Headache (ED) Prescriptions: Butalb/Acetamin/Caff 50-325-40 [Fioricet] 1 each PO Q4H PRN #20 tablet PRN Reason: Headache Referrals: PRIMARY CARE, [Primary Care Provider] - 3-5 Days Time of Disposition: 22:51
[2016-12-17] MEDS ORDERED: MORPHINE IV ONE (22:10)
--- NOTE | 2016-12-17 22:13 | Cat Scan Report ---
FINAL REPORT EXAM: CT HEAD/BRAIN WO CON HISTORY: headache, elevated BP, h/o CVA TECHNIQUE: Noncontrast CT axial images of the brain. PRIORS: None. FINDINGS: No parenchymal mass, mass effect, hemorrhage, midline shift or hydrocephalus. No evidence of acute cortical infarct. No abnormal, extra-axial fluid or air collection. Osseous calvarium grossly intact. IMPRESSION: 1. No acute intracranial findings. Priors 11 November 2016.
[2016-12-17 23:16] VITALS: BP 122/71
== END 2016-12-17 23:30 | disposition home or self-care (01) ==
LOC: ED 15:31
DX: I10 Essential (primary) hypertension (principal); G44.209 Tension-type headache, unspecified, not intractable; I63.9 Cerebral infarction, unspecified; E11.9 Type 2 diabetes mellitus without complications; E78.00 Pure hypercholesterolemia, unspecified; Z91.09 Other allergy status, other than to drugs and biological substances; Z91.018 Allergy to other foods; Z79.82 Long term (current) use of aspirin
CPT/HCPCS: 36415; 70450; 80048; 84443; 85027; 96374; 96375; 99284; J0360; J2270

== ENCOUNTER 2017-03-01 23:35 | Inpatient (IN) | payer OTHER ==
[2017-03-02 00:57] LABS: Hematocrit 38.3 % (30.3-42.9); Hemoglobin 12.1 gm/dl (10.1-14.3); Mean Corpuscular HGB Conc 32 % (30-34); Mean Corpuscular Hemoglobin 28 pg (28-32); Mean Corpuscular Volume 88 fl (79-97); Platelet Count 441 K/mm3 (140-440); Red Blood Count 4.36 M/mm3 (3.65-5.03); Red Cell Distribution Width 14.8 % (13.2-15.2)
[2017-03-02 01:11] LABS: INR 0.98 (0.87-1.13)
[2017-03-02 01:12] LABS: Partial Thromboplastin Time 30.2 Sec. (24.2-36.6)
[2017-03-02 01:25] LABS: Alanine Aminotransferase 14 units/L (7-56); Albumin 2.5 g/dL (3.9-5); Albumin/Globulin Ratio 0.7 %; Alkaline Phosphatase 47 units/L (35-129); Anion Gap 54 mmol/L; BUN/Creatinine Ratio 7.68; Bilirubin,Total < 0.20 mg/dL (0.1-1.2); Blood Urea Nitrogen 73 mg/dL (7-17); Calcium 9.2 mg/dL (8.4-10.2); Carbon Dioxide 10 mmol/L (22-30); Chloride 81.1 mmol/L (98-107); Glucose 64 mg/dL (65-100); Potassium 5.8 mmol/L (3.6-5.0); Sodium 139 mmol/L (137-145); Total Protein 6.3 g/dL (6.3-8.2)
[2017-03-02 01:26] LABS: White Blood Count 20.7 K/mm3 (4.5-11.0)
[2017-03-02] MEDS ORDERED: ZOFRAN IV ONE (02:08)
[2017-03-02] MEDS ORDERED: NACL 0.9% 500 ML 500 ML IV ONE ×2 (02:08→07:48)
[2017-03-02] MEDS ORDERED: KIONEX PO ONE (02:16)
[2017-03-02] MEDS ORDERED: SODIUM BICARBONATE IV ONE ×5 (02:16→22:17)
[2017-03-02] MEDS ORDERED: CALCIUM GLUCONATE 1,000 MG in NACL 0.9% 100 ML IV ONE (02:16)
--- NOTE | 2017-03-02 02:21 | Emergency Department Report ---
HPI - General Chief Complaint: GI Bleed Time Seen by Provider: 03/02/17 01:55 - HPI HPI: Room 8 The patient is a 46-year-old female presenting with a chief complaint of weakness. The patient states she felt weak since yesterday. Family states the patient is very poor appetite lately. Patient complains of constipation for one week. This morning patient's glucose had dropped to 42. EMS was called and administered D50 and the patient improved. Patient then developed nausea vomiting. This evening as well as family member was taken the patient to the bathroom he states she went limp and passed out. EMS was called again and the patient was transported to the ED. Family states the patient had black-colored emesis. Patient complains of periumbilical abdominal pain which began this morning Location: Abdomen Duration: [see above] Quality: Pain Severity: Moderate Modifying factors: [see above] Context: [see above] Mode of transportation: [not driving] ED Past Medical Hx - Past Medical History Previous Medical History?: Yes Hx Hypertension: Yes Hx CVA: Yes Hx Diabetes: Yes Additional medical history: high cholesterol - Surgical History Past Surgical History?: Yes Additional Surgical History: B/L eye surgery - Family History Family history: no significant - Social History Smoking Status: Never Smoker Substance Use Type: None - Medications Home Medications: Home Medications Medication Instructions Recorded Confirmed Last Taken Type Aspirin [Aspirin BABY CHEW TAB] 81 mg PO QDAY 02/28/16 03/02/17 03/01/17 History Gabapentin [Neurontin] 300 mg PO Q8HR 02/28/16 03/02/17 03/01/17 History Hydrochlorothiazide [HCTZ] 25 mg PO QDAY 02/28/16 03/02/17 03/01/17 History Lisinopril [Zestril TAB] 20 mg PO QDAY 02/28/16 03/02/17 03/01/17 History Metformin HCl [Glucophage] 1,000 mg PO BID 02/28/16 03/02/17 03/01/17 History Metoprolol [Lopressor TAB] 100 mg PO BID 02/28/16 03/02/17 03/01/17 History cloNIDine [Catapres] 0.1 mg PO BID 02/28/16 03/02/17 03/01/17 History AtorvaSTATin [Lipitor] 40 mg PO QHS #30 tablet 11/14/16 03/02/17 03/01/17 Rx amLODIPine [Norvasc] 10 mg PO DAILY 03/02/17 03/02/17 03/01/17 History ED Review of Systems ROS: Stated complaint: N/V/SYNCOPE Other details as noted in HPI Comment: All other systems reviewed and negative Constitutional: weakness ENT: denies: ear pain, throat pain Respiratory: denies: cough, shortness of breath, wheezing Cardiovascular: denies: chest pain, palpitations Endocrine: no symptoms reported Gastrointestinal: nausea, vomiting, constipation. denies: diarrhea Genitourinary: denies: urgency, dysuria, discharge Musculoskeletal: denies: back pain, joint swelling, arthralgia Skin: denies: rash, lesions Neurological: denies: headache, weakness, paresthesias Psychiatric: denies: anxiety, depression Hematological/Lymphatic: denies: easy bleeding, easy bruising Physical Exam - Physical Exam Vital Signs: Vital Signs 03/02/17 03/02/17 03/02/17 00:05 00:07 00:20 Pulse Rate 92 H 94 H Respiratory 11 L 14 18 Rate Blood Pressure 106/57 O2 Sat by Pulse 96 96 97 Oximetry Physical Exam: GENERAL: The patient is well-developed female appearing lethargic lying on stretcher HEENT: Normocephalic. Atraumatic. Extraocular motions are intact. NECK: Supple. Trachea midline CHEST/LUNGS: Clear to auscultation. There is no respiratory distress noted. HEART/CARDIOVASCULAR: Regular. There is no tachycardia. There is no gallop rub or murmur. ABDOMEN: Abdomen is soft, nontender. Patient has normal bowel sounds. There is no abdominal distention. SKIN: There is no rash. There is no edema. There is no diaphoresis. NEURO: The patient is awake and oriented. The patient is cooperative. The patient has no focal neurologic deficits. The patient has normal speech MUSCULOSKELETAL: There is no evidence of acute injury. RECTAL: Guaiac negative brown stool ED Course Vital Signs 03/02/17 03/02/17 03/02/17 00:05 00:07 00:20 Pulse Rate 92 H 94 H Respiratory 11 L 14 18 Rate Blood Pressure 106/57 O2 Sat by Pulse 96 96 97 Oximetry - Consultations Consultation #1: 03/02/17 05:38 Nephrology paged 03/02/17 06:[address] Schaefer- will evaluate patient ED Medical Decision Making - Lab Data Result diagrams: 03/02/17 00:39 03/02/17 00:39 Laboratory Tests 03/02/17 03/02/17 03/02/17 00:39 00:39 00:39 WBC 20.7 H RBC 4.36 Hgb 12.1 Hct 38.3 MCV 88 MCH 28 MCHC 32 RDW 14.8 Plt Count 441 H PT 12.9 INR 0.98 APTT 30.2 Sodium 139 Potassium 5.8 H Chloride 81.1 L Carbon Dioxide 10 L Anion Gap 54 BUN 73 H Creatinine 9.5 H Estimated GFR 5 BUN/Creatinine Ratio 7.68 Glucose 64 L Calcium 9.2 Total Bilirubin < 0.20 AST 16 ALT 14 Alkaline Phosphatase 47 Total Protein 6.3 Albumin 2.5 L Albumin/Globulin Ratio 0.7 Blood Type Antibody Screen PATTI Antibody Screen 03/02/17 00:39 WBC RBC Hgb Hct MCV MCH MCHC RDW Plt Count PT INR APTT Sodium Potassium Chloride Carbon Dioxide Anion Gap BUN Creatinine Estimated GFR BUN/Creatinine Ratio Glucose Calcium Total Bilirubin AST ALT Alkaline Phosphatase Total Protein Albumin Albumin/Globulin Ratio Blood Type O POSITIVE Antibody Screen TNR PATTI Antibody Screen Negative - Radiology Data Radiology results: report reviewed (CT head, CT abdomen and pelvis), image reviewed (CT abdomen/pelvis, CT head) CT head (read by radiologist)-normal examination CT abdomen and pelvis (read by radiologist)-no acute intra-abdominal process noted. Moderate hiatal hernia. - Differential Diagnosis syncope, renal failure, obstruction Critical care attestation.: If time is entered above; I have spent that time in minutes in the direct care of this critically ill patient, excluding procedure time. ED Disposition Clinical Impression: Acute renal failure, Hyperkalemia, Syncope, Leukocytosis, Hypoglycemia Disposition: OP ADMITTED IP TO THIS HOSP Is pt being admited?: Yes Does the pt Need Aspirin: No Condition: Serious Instructions: Syncope (ED) Referrals: PRIMARY CARE, [Primary Care Provider] - 3-5 Days Forms: Accompanied Note Time of Disposition: 05:53 (hospitalist notified)
[2017-03-02 02:49] LABS: Anisocytosis 1+; Blastocytes % (Manual) 0 %; Eosinophils % (Manual) 0 % (0.0-4.3); Hypochromasia 1+; Large Platelets Few
[2017-03-02 02:50] LABS: Diff Status Complete
[2017-03-02] MEDS ORDERED: D50W (25GM) IV ONE ×2 (04:53→05:40)
--- NOTE | 2017-03-02 05:05 | Cat Scan Report ---
FINAL REPORT PROCEDURE: CT HEAD/BRAIN WO CON TECHNIQUE: Computerized tomography of the head was performed without contrast material. HISTORY: syncope COMPARISON: No prior studies are available for comparison. FINDINGS: Skull and scalp: Normal. Paranasal sinuses: Normal. Ventricles and subarachnoid spaces: Normal. Cerebrum: No evidence of hemorrhage, acute infarction or mass . Cerebellum and brainstem: No evidence of hemorrhage, acute infarction or mass. Vasculature: Normal. Comments: None. IMPRESSION: Normal Examination
[2017-03-02] MEDS ORDERED: NACL 0.9% 250ML 250 ML ONE (05:10)
[2017-03-02] MEDS ORDERED: NACL 0.9% 500 ML 250 ML IV ONE (05:13)
--- NOTE | 2017-03-02 05:36 | Cat Scan Report ---
FINAL REPORT EXAM: CT ABDOMEN PELVIS WO CON HISTORY: periumbilical abdominal pain, acute renal failure TECHNIQUE: Standard unenhanced CT of the abdomen and pelvis obtained at 1.25 mm and 2.5 mm axial increments. Coronal and sagittal reconstruction was also performed. Contrast: No IV contrast given. Oral contrast given. PRIORS: None. FINDINGS: Within the abdomen, the liver, spleen, pancreas, gallbladder, adrenal glands, and kidneys are unremarkable. No evidence for retroperitoneal or pelvic lymphadenopathy is seen. Moderate stool is present throughout the entire colon and rectum. The bowel loops have normal caliber. No soft tissue mass, fluid collection, inflammatory change, or free air is seen within the abdomen or pelvis. The appendix is normal. Within the pelvis, the bladder is unremarkable. The uterus is normal. No evidence for mass or lymphadenopathy is seen in the pelvis. Images through the upper abdomen include the lung bases which are expanded and clear. There is a moderate hiatal hernia. Bony structures show no focal abnormalities and are intact. IMPRESSION: No acute intra-abdominal process noted. Moderate hiatal hernia.
[2017-03-02] MEDS ORDERED: ZOSYN/NS 2.25 GM/50ML 2.25 GM/50 ML BAG IV ONE (05:51)
[2017-03-02] MEDS ORDERED: D5/0.45NS 1,000 ML IV ONE (06:35)
[2017-03-02] MEDS ORDERED: TYLENOL PO PRN (06:47)
[2017-03-02] MEDS ORDERED: ZOFRAN IV PRN (06:47)
--- NOTE | 2017-03-02 06:56 | History and Physical Report ---
History of Present Illness Date of examination: 03/02/17 History of present illness: 46 year old woman with a history of hypertension, diabetes, chronic kidney disease, CVAs comes emergency room with complaints of low blood sugar. Her blood sugar in the field was 42, D50 was given with good results. Spouse at bedside stated that the patient has decrease oral intake over the last 1 month. Patient has been taking her medications, these include Atrovent Dyazide, lisinopril Patient denies chest pain, palpitation, shortness of breath, cough, abdominal pain, hematochezia, dysuria, frequency, focal weakness, dysarthria, fever chills , polydipsia polyuria, hot or cold intolerance, easy bruisability, or rash or bleeding from mucosal membrane, rhinorrhea, epistaxis, earache, tinnitus, blurry vision, eye discharge, anxiety, depression. Other review of systems negative PAST SURGICAL HISTORY: None SOCIAL HISTORY: Denies alcohol, tobacco, drugs FAMILY HISTORY: Hypertension Medications and Allergies Allergies Allergy/AdvReac Type Severity Reaction Status Date / Time cat dander Allergy Unknown Verified 02/28/16 15:34 Egg Derived Allergy Vomiting Verified 02/28/16 15:34 Home Medications Medication Instructions Recorded Confirmed Last Taken Type Aspirin [Aspirin BABY CHEW TAB] 81 mg PO QDAY 02/28/16 03/02/17 03/01/17 History Gabapentin [Neurontin] 300 mg PO Q8HR 02/28/16 03/02/17 03/01/17 History Hydrochlorothiazide [HCTZ] 25 mg PO QDAY 02/28/16 03/02/17 03/01/17 History Lisinopril [Zestril TAB] 20 mg PO QDAY 02/28/16 03/02/17 03/01/17 History Metformin HCl [Glucophage] 1,000 mg PO BID 02/28/16 03/02/17 03/01/17 History Metoprolol [Lopressor TAB] 100 mg PO BID 02/28/16 03/02/17 03/01/17 History cloNIDine [Catapres] 0.1 mg PO BID 02/28/16 03/02/17 03/01/17 History AtorvaSTATin [Lipitor] 40 mg PO QHS #30 tablet 11/14/16 03/02/17 03/01/17 Rx Latanoprost 0.005% [Xalatan 0.005%] 1 drop OU QPM 03/02/17 03/02/17 03/01/17 History amLODIPine [Norvasc] 10 mg PO DAILY 03/02/17 03/02/17 03/01/17 History Exam - Physical Exam Narrative exam: Gen. appearance: Patient lying in bed, no apparent distress HEENT: Normocephalic, atraumatic, pupils equally round and reactive to light, extraocular movement intact, and no sclericterus,. No JVD or thyromegaly or nodule,neck supple, no carotid bruit ,mucous membranes dry, no exudate or erythema Heart: S1, S2, regular rate and rhythm Lungs: Clear to auscultation bilaterally, breathing comfortable Abdomen: Positive bowel sounds, nontender, nondistended, no organomegaly Extremity: No edema, cyanosis, clubbing Skin: No rash, nodules, warm, dry Neuro: Oriented 3, cranial nerves II-12 intact, speech is fluent, motor and sensory intact - Constitutional Vitals: Temp Pulse Resp BP Pulse Ox 97.6 F 88 17 98/58 100 03/02/17 05:45 03/02/17 05:30 03/02/17 05:30 03/02/17 05:30 03/02/17 05:30 Results - Labs CBC & Chem 7: 03/03/17 03:30 03/03/17 03:30 Labs: Abnormal lab results 03/02/17 03/02/17 03/02/17 Range/Units 00:39 00:39 04:53 WBC 20.7 H (4.5-11.0) K/mm3 Plt Count 441 H (140-440) K/mm3 Seg Neuts % (Manual) 77.0 H (40.0-70.0) % Lymphocytes % (Manual) 10.0 L (13.4-35.0) % Seg Neutrophils # Man 15.9 H (1.8-7.7) K/mm3 Monocytes # (Manual) 1.4 H (0.0-0.8) K/mm3 Potassium 5.8 H (3.6-5.0) mmol/L Chloride 81.1 L (98-107) mmol/L Carbon Dioxide 10 L (22-30) mmol/L BUN 73 H (7-17) mg/dL Creatinine 9.5 H (0.7-1.2) mg/dL Glucose 64 L (65-100) mg/dL POC Glucose < 40 L (70-105) Albumin 2.5 L (3.9-5) g/dL 03/02/17 Range/Units 05:19 WBC (4.5-11.0) K/mm3 Plt Count (140-440) K/mm3 Seg Neuts % (Manual) (40.0-70.0) % Lymphocytes % (Manual) (13.4-35.0) % Seg Neutrophils # Man (1.8-7.7) K/mm3 Monocytes # (Manual) (0.0-0.8) K/mm3 Potassium (3.6-5.0) mmol/L Chloride (98-107) mmol/L Carbon Dioxide (22-30) mmol/L BUN (7-17) mg/dL Creatinine (0.7-1.2) mg/dL Glucose (65-100) mg/dL POC Glucose 227 H (70-105) Albumin (3.9-5) g/dL - Imaging and Cardiology CT scan - abdomen: report reviewed CT Scan - head: report reviewed CT scan - pelvis: report reviewed Assessment and Plan Acute renal failure most like secondary to nephrotoxic agent, decreased oral intake Hypoglycemia/DM secondary to poor intake, renal failure SIRS Relative hypotension Admits medicine Start IV fluid, IV Zosyn, follow cultures, UA pending Consult renal, Case discussed with Dr wright Check fingersticks, start DVT prophylaxis Hold antihpertensives
[2017-03-02] MEDS ORDERED: D5/0.45NS 1,000 ML IV SCH (07:00)
--- NOTE | 2017-03-02 07:26 | Admit Criteria Form ---
Admission Criteria Documentation: RENAL FAILURE, ACUTE Clinical Indications for Admission to Inpatient Care ( Place 'X' for any and all applicable criteria): Admission is indicated for ALL (if I & II) or III of the following [A](2)(3)(4)( 5)(6)(7): [ ]I. Acute renal failure as indicated by ANY ONE of the following: [ ]a) A 3-fold rise in serum creatinine from baseline [ ]b) Serum creatinine greater than 4 mg/dL (354 micromoles/L) with an acute rise greater than 0.5 mg/dL (44.2 micromoles/L) [ ]c) Reduction of more than 75% in estimated glomerular filtration rate from baseline [ ]d) Estimated glomerular filtration rate less than 35 mL/min/1.73m2 (0.59mL/sec/1.73m2)in a child up to 18 years of age [ ]e) Anuria indicated by ALL of the following: [ ]i) Adequate volume status [ ]ii) Cessation of urine output indicated by ANY ONE of the following: [ ]1) Urine output less than 0.3 mL/kg/hr for 24 hours [ ]2) Anuria (urine output less than 0.1 mL/kg/ hr) for 12 hours [ X] II. Renal failure cannot be managed in an outpatient setting or observational care setting as indicating by ANY ONE of the following: [ ]a) Altered mental status that is severe or persistent [ ]b) Volume overload or Respiratory distress (eg, clinically significant pulmonary edema) that is severe or persistent [ ]c) Cardiac arrhythmias of immediate concern [ ]d) Hemodynamic instability [X ]e) Clinically significant electrolyte abnormality that requires inpatient care (eg, hyperkalemia with severe ECG findings)[B] [ ]f) Clinically significant metabolic abnormality (eg, acidosis) that is severe or persistent [ ]g) Acute treatment of renal failure (eg, renal replacement therapy) not feasible or appropriate in observational care setting [ ]h) Clinical situation too unstable or uncertain (eg, inadequate urine output, ongoing decline in renal function, etiology unclear) [ ]i) Necessary support and caregiver ability to comply with outpatient treatment cannot be arranged in observation care timeframe (eg, within 24 hours) [ ]j) Other significant finding or clinical condition judged not to be within scope of observation care [ ]III.General contraindications and/or Inappropriate clinical situations for Observational Care in patients with Acute Renal Failure, when ANY ONE of the following is required: [ ]a) Prediction of prolongation of LOS based on ANY ONE of the following may be considered as a contraindication for observational care 2, 3, 4, 5, 6, 7, 8 , 9, 10, 11 [ ]i) Age > 65 yrs. [ ]ii) Patient arriving by ambulance [ ]iii) Patient with high acuity [ ]iv) Patient requiring vital sign monitoring [ ]v) Patient on IV medication [ ]b) Systolic blood pressures 180mmHg 3,12 [ ]c) Patient with altered mental status including delirium and other alteration of consciousness, (3) [ ]d) Patient whose discharge disposition will be to a senior living home or rehabilitation home should not be managed in Emergency Department Observation Unit. CMS rule requires 3 days hospital stay before such placement.3,13 [ ]e) Patient with failure to thrive due to broad array of etiologies 3, 16,17 [ ]f) Inability to ambulate 3,14 Extended stay beyond goal length of stay may be needed for(13) [ ]a) Continuing uremic complications [ ]b) Care for comorbidities [ ]c) acute renal failure [ ]d) Need for dialysis The original [employer] content created by [employer] has been revised. The portions of the content which have been revised are identified through the use of italic text or in bold, and [facility] has neither reviewed nor approved the modified material. All other unmodified content is copyright [employer]. Please see references footnoted in the original [email or web address] edition 2016
[2017-03-02 07:52] LABS: Bacteria,Urine 1+ /HPF (Negative); Bilirubin,Urine NEG (Negative); Blood,Urine SM (Negative); Ketones,Urine TR mg/dL (Negative); Leukocyte Esterase,Urine LG (Negative); Nitrite,Urine NEG (Negative); Urobilinogen,Urine < 2.0 mg/dL (<2.0)
[2017-03-02 07:54] LABS: WBC,Urine > 182.0 /HPF (0.0-6.0)
[2017-03-02] MEDS ORDERED: NACL 0.9% 1000 ML 2,000 ML ONE (08:35)
[2017-03-02] MEDS ORDERED: NACL 0.9% 1000 ML 2,000 ML IV ONE (08:46)
--- NOTE | 2017-03-02 09:38 | XRay Report ---
AP CHEST: HISTORY: Weakness AP view of the chest demonstrates a normal mediastinal and cardiac contour with clear lungs and normal bony and soft tissue structures. No significant change since 11/11/16. IMPRESSION: Unremarkable AP chest.
--- NOTE | 2017-03-02 09:56 | XRay Report ---
AP CHEST: HISTORY: PICC line placement A right PICC has been inserted which crosses midline to terminate in the left brachiocephalic vein. Consider retraction by 7 cm and readvancement by 7 cm. The overall length of the PICC line appears adequate. Heart and mediastinal structures remain normal. The lungs are clear. No acute process is noted in the chest. IMPRESSION: Right arm PICC as outlined above.
[2017-03-02] MEDS ORDERED: LEVOPHED DRIP 4 MG/NS 250 ML 4 MG/250 ML BAG IV ONE (09:57)
[2017-03-02] MEDS ORDERED: ZEMURON IV ONE (10:09)
[2017-03-02] MEDS ORDERED: AMIDATE IV ONE (10:09)
[2017-03-02] MEDS ORDERED: VANCOMYCIN VIAL 1,250 MG in NACL 0.9% 500 ML 500 ML IV ONE (10:17)
--- NOTE | 2017-03-02 10:23 | Event Note ---
called to see, decreased mental status,obtunded, BP still low. Intubate, transfer to ICU
[2017-03-02] MEDS: LEVOPHED DRIP 4 MG/NS 250 ML 4 MG/250 ML BAG IV SCH ×4 (10:30→21:19)
[2017-03-02] MEDS ORDERED: NACL 0.9% 1000 ML 3,000 ML IV ONE (10:30)
--- NOTE | 2017-03-02 10:32 | Emergency Department Report ---
Blank Doc - Documentation Documentation: Procedure note: Endotracheal intubation and rapid sequence. I was called by Dr. Tong to assist in the airway management of this patient. She was found to be obtunded. 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 On stimulation she moves her right arm. Otherwise, she is completely obtunded and unresponsive. She is maintaining her pulse oximetry at 100%. She is quite hypotensive. That is being addressed. The patient is in acute renal failure. Therefore succinylcholine was avoided. She was prepared for intubation and preoxygenated using a nonrebreather. Her pulse oximetry was well maintained at 100%. She was given 14 mg of etomidate and 50 mg) Imodium. Using direct laryngoscopy a 7.5 [place] endotracheal tube was passed without difficulty. It was secured at 22 cm at the teeth revealing good bilateral sounds and positive end-tidal CO2 color change. Chest x-ray is pending. Diagnostic impression Respiratory failure See hospitalist note for multiple other diagnoses and plan
[2017-03-02 10:45] LABS: ISTAT Base Excess -29; ISTAT HCO3 4.9; ISTAT PCO2 27.8 (35-45); ISTAT PH 6.857 (7.35-7.45); ISTAT PO2 318 (80-105); ISTAT SO2 100; ISTAT TCO2 6
--- NOTE | 2017-03-02 10:45 | Progress Note ---
Assessment and Plan Assessment and plan: Sepsis with septic shock likely secondary to urinary tract infection. Given Zosyn. Levaquin and vancomycin. Ordered total 5 L bolus of normal saline. To start Levophed since BP still low. Going to ICu. UTI. Urinalysis shows a urinary tract infection Acute resp failure. Now intubated, put on ventilator. Going to ICU. I consulted and discussed with dr. Norman discussed with Acute on CKD. She was following with Nephrology before. Cr 9.5 today from 1.6 on discharge 2 months ago[address] discussed with Dr. Lemus Severe metabolic acidosis. Given multiple Bicarb iv. To start Bicarb drip Toxic metabolic encephalopathy. Initially was lethargic, now obtunded. lactic acidosis from sepsis HTN. She is now hypotensive. Diabetes mellitus type 2. History of 5 strokes. Full code status. History Interval history: Called by Nurse decreased responsiveness Hospitalist Physical - Physical exam Narrative exam: Gen: Intubated, on ventilator HEENT: Normocephalic Neck: supple, no JVD Lungs:Lungs clear to auscultation, bilaterally, no crackles or wheeze Heart S1-S2 regular, no murmurs rubs or gallop, Abdomen: soft, non tender, non distended, normal bowel sounds , Ext: No edema, clubbing or cyanosis. Neuro: Was obtunded, now Intubated, - Constitutional Vitals: Temp Pulse Resp BP Pulse Ox 97.6 F 95 H 22 80/44 99 03/02/17 05:45 03/02/17 09:11 03/02/17 09:11 03/02/17 09:11 03/02/17 09:11 Results - Labs CBC & Chem 7: 03/03/17 03:30 03/03/17 03:30 Labs: Laboratory Last Values WBC 20.7 K/mm3 (4.5-11.0) H 03/02/17 00:39 RBC 4.36 M/mm3 (3.65-5.03) 03/02/17 00:39 Hgb 12.1 gm/dl (10.1-14.3) 03/02/17 00:39 Hct 38.3 % (30.3-42.9) 03/02/17 00:39 MCV 88 fl (79-97) 03/02/17 00:39 MCH 28 pg (28-32) 03/02/17 00:39 MCHC 32 % (30-34) 03/02/17 00:39 RDW 14.8 % (13.2-15.2) 03/02/17 00:39 Plt Count 441 K/mm3 (140-440) H 03/02/17 00:39 Add Manual Diff Complete 03/02/17 00:39 Total Counted 100 04 00:39 Seg Neuts % (Manual) 77.0 % (40.0-70.0) H 03/02/17 00:39 Band Neutrophils % 6.0 % 03/02/17 00:39 Lymphocytes % (Manual) 10.0 % (13.4-35.0) L 03/02/17 00:39 Reactive Lymphs % (Man) 0 % 03/02/17 00:39 Monocytes % (Manual) 7.0 % (0.0-7.3) 03/02/17 00:39 Eosinophils % (Manual) 0 % (0.0-4.3) 03/02/17 00:39 Metamyelocytes % 0 % 03/02/17 00:39 Myelocytes % 0 % 03/02/17 00:39 Promyelocytes % 0 % 03/02/17 00:39 Blast Cells % 0 % 03/02/17 00:39 Nucleated RBC % Not Reportable 03/02/17 00:39 Seg Neutrophils # Man 15.9 K/mm3 (1.8-7.7) H 03/02/17 00:39 Band Neutrophils # 1.2 K/mm3 03/02/17 00:39 Lymphocytes # (Manual) 2.1 K/mm3 (1.2-5.4) 03/02/17 00:39 Abs React Lymphs (Man) 0.0 K/mm3 03/02/17 00:39 Monocytes # (Manual) 1.4 K/mm3 (0.0-0.8) H 03/02/17 00:39 Eosinophils # (Manual) 0.0 K/mm3 (0.0-0.4) 03/02/17 00:39 Basophils # (Manual) 0.0 K/mm3 (0.0-0.1) 03/02/17 00:39 Metamyelocytes # 0.0 K/mm3 03/02/17 00:39 Myelocytes # 0.0 K/mm3 03/02/17 00:39 Promyelocytes # 0.0 K/mm3 03/02/17 00:39 Blast Cells # 0.0 K/mm3 03/02/17 00:39 WBC Morphology Not Reportable 03/02/17 00:39 Hypersegmented Neuts Not Reportable 03/02/17 00:39 Hyposegmented Neuts Not Reportable 03/02/17 00:39 Hypogranular Neuts Not Reportable 03/02/17 00:39 Smudge Cells Not Reportable 03/02/17 00:39 Toxic Granulation Not Reportable 03/02/17 00:39 Toxic Vacuolation Not Reportable 03/02/17 00:39 Dohle Bodies Not Reportable 03/02/17 00:39 Pelger-Huet Anomaly Not Reportable 03/02/17 00:39 Cinthia Rods Not Reportable 03/02/17 00:39 Platelet Estimate Appears normal 03/02/17 00:39 Clumped Platelets Not Reportable 03/02/17 00:39 Plt Clumps, EDTA Not Reportable 03/02/17 00:39 Large Platelets Few 03/02/17 00:39 Giant Platelets Not Reportable 03/02/17 00:39 Platelet Satelliting Not Reportable 03/02/17 00:39 Plt Morphology Comment Not Reportable 03/02/17 00:39 RBC Morphology Not Reportable 03/02/17 00:39 Dimorphic RBCs Not Reportable 03/02/17 00:39 Polychromasia Not Reportable 03/02/17 00:39 Hypochromasia 1+ 03/02/17 00:39 Poikilocytosis Not Reportable 03/02/17 00:39 Anisocytosis 1+ 03/02/17 00:39 Microcytosis Not Reportable 03/02/17 00:39 Macrocytosis Not Reportable 03/02/17 00:39 Spherocytes Not Reportable 03/02/17 00:39 Pappenheimer Bodies Not Reportable 03/02/17 00:39 Sickle Cells Not Reportable 03/02/17 00:39 Target Cells Not Reportable 03/02/17 00:39 Tear Drop Cells Not Reportable 03/02/17 00:39 Ovalocytes Not Reportable 03/02/17 00:39 Helmet Cells Not Reportable 03/02/17 00:39 [place] Bodies Not Reportable 03/02/17 00:39 [place] Rings Not Reportable 03/02/17 00:39 [place] Cells Not Reportable 03/02/17 00:39 Bite Cells Not Reportable 03/02/17 00:39 Crenated Cell Not Reportable 03/02/17 00:39 Elliptocytes Not Reportable 03/02/17 00:39 Acanthocytes (Spur) Not Reportable 03/02/17 00:39 Rouleaux Not Reportable 03/02/17 00:39 Hemoglobin C Crystals Not Reportable 03/02/17 00:39 Schistocytes Not Reportable 03/02/17 00:39 Malaria parasites Not Reportable 03/02/17 00:39 Doug Bodies Not Reportable 03/02/17 00:39 Hem Pathologist Commnt No 03/02/17 00:39 PT 12.9 Sec. (12.2-14.9) 03/02/17 00:39 INR 0.98 (0.87-1.13) 03/02/17 00:39 APTT 30.2 Sec. (24.2-36.6) 03/02/17 00:39 Sodium 139 mmol/L (137-145) 03/02/17 00:39 Potassium 5.8 mmol/L (3.6-5.0) H 03/02/17 00:39 Chloride 81.1 mmol/L (98-107) L 03/02/17 00:39 Carbon Dioxide 10 mmol/L (22-30) L 03/02/17 00:39 Anion Gap 54 mmol/L 03/02/17 00:39 BUN 73 mg/dL (7-17) H 03/02/17 00:39 Creatinine 9.5 mg/dL (0.7-1.2) H 03/02/17 00:39 Estimated GFR 5 ml/min 03/02/17 00:39 BUN/Creatinine Ratio 7.68 % 03/02/17 00:39 Glucose 64 mg/dL (65-100) L 03/02/17 00:39 POC Glucose 297 (70-105) H 03/02/17 08:30 Calcium 9.2 mg/dL (8.4-10.2) 03/02/17 00:39 Total Bilirubin < 0.20 mg/dL (0.1-1.2) 04/29/17 00:39 AST 16 units/L (5-40) 03/02/17 00:39 ALT 14 units/L (7-56) 03/02/17 00:39 Alkaline Phosphatase 47 units/L (35-129) 03/02/17 00:39 Total Creatine Kinase 123 units/L (30-135) 03/02/17 02:19 Total Protein 6.3 g/dL (6.3-8.2) 03/02/17 00:39 Albumin 2.5 g/dL (3.9-5) L 03/02/17 00:39 Albumin/Globulin Ratio 0.7 % 03/02/17 00:39 Urine Color Yellow (Yellow) 03/02/17 07:17 Urine Turbidity Turbid (Clear) 03/02/17 07:17 Urine pH 7.0 (5.0-7.0) 03/02/17 07:17 Ur Specific [place] 1.020 (1.003-1.030) 03/02/17 07:17 Urine Protein 100 mg/dl mg/dL (Negative) 03/02/17 07:17 Urine Glucose (UA) Neg mg/dL (Negative) 03/02/17 07:17 Urine Ketones Tr mg/dL (Negative) 03/02/17 07:17 Urine Blood Sm (Negative) 03/02/17 07:17 Urine Nitrite Neg (Negative) 03/02/17 07:17 Urine Bilirubin Neg (Negative) 03/02/17 07:17 Urine Urobilinogen < 2.0 mg/dL (<2.0) 03/02/17 07:17 Ur Leukocyte Esterase Lg (Negative) 03/02/17 07:17 Urine WBC (Auto) > 182.0 /HPF (0.0-6.0) H 03/02/17 07:17 Urine RBC (Auto) 6.0 /HPF (0.0-6.0) 03/02/17 07:17 Urine Bacteria (Auto) 1+ /HPF (Negative) 03/02/17 07:17 Urine WBC Clumps 1+ /HPF 03/02/17 07:17 Blood Type O POSITIVE 03/02/17 00:39 Antibody Screen TNR 03/02/17 00:39 PATTI Antibody Screen Negative 03/02/17 00:39
[2017-03-02] MEDS ORDERED: ARTIFICIAL TEARS OPHTH OINT OU PRN (10:54)
[2017-03-02] MEDS ORDERED: VASELINE LIP THERAPY TP PRN (10:54)
[2017-03-02] MEDS ORDERED: LEVAQUIN 750MG/150ML 750 MG/150 ML BAG IV ONE (11:00)
[2017-03-02] MEDS ORDERED: VANCOMYCIN PHARMACY TO DOSE IV SCH (11:00)
[2017-03-02] MEDS ORDERED: NACL 0.9% 500 ML IV SCH (11:00)
--- NOTE | 2017-03-02 11:10 | XRay Report ---
AP CHEST: HISTORY: Endotracheal tube placement. An endotracheal tube has been inserted which terminates 4.2 cm superior to the marcos. A nasogastric tube is coiled in the fundus of the stomach. Right arm PICC has been retracted and now terminates at the confluence of the brachiocephalic veins. Heart and mediastinal structures remain unremarkable. The lungs are generally clear. No acute process is noted. IMPRESSION: Adequate placement of the endotracheal tube. No acute process is appreciated in the chest.
[2017-03-02 11:14] LABS: Creatine Kinase MB 8.2 ng/mL (0.0-4.0)
[2017-03-02 11:41] LABS: BUN/Creatinine Ratio 7.93; Calcium 7.5 mg/dL (8.4-10.2); Chloride 88.2 mmol/L (98-107); Potassium 4.9 mmol/L (3.6-5.0)
[2017-03-02] MEDS: SODIUM BICARBONATE 150 MEQ in D5W 1,000 ML IV SCH (11:45)
[2017-03-02 11:57] LABS: ISTAT Base Excess -28; ISTAT HCO3 5.6; ISTAT PCO2 33.9 (35-45); ISTAT PH 6.829 (7.35-7.45); ISTAT PO2 147 (80-105); ISTAT SO2 96; ISTAT TCO2 7
[2017-03-02] MEDS ORDERED: ZOSYN/NS 4.5GM/100ML 4.5 GM/100 ML VIAL IV SCH (12:00)
[2017-03-02] MEDS ORDERED: HEPARIN 10,000 UNITS/10 ML ONE (12:42)
[2017-03-02] MEDS ORDERED: XYLOCAINE 2% INFILTRATI ONE (12:54)
[2017-03-02] MEDS: PROTONIX IV SCH ×2 (13:33→21:36)
[2017-03-02] MEDS: LOVENOX SUB-Q SCH (13:34)
[2017-03-02] MEDS ORDERED: NACL 0.9% 100 ML IV PRN (14:04)
[2017-03-02] MEDS ORDERED: HEPARIN IV PRN (14:04)
[2017-03-02] MEDS: ZOSYN/NS 2.25 GM/50ML 2.25 GM/50 ML BAG IV SCH ×2 (15:26→21:38)
--- NOTE | 2017-03-02 15:47 | Consultation ---
History of Present Illness - Reason for Consult Consult date: 03/02/17 acute renal failure, metabolic acidosis - History of Present Illness Mrs. White is a 46yo with type II DM and chronic kidney disease who presented to the ED with complaint of weakness. Labs notable for WBC 20k, SCr 9, Bicarb 10 and SK 5.8. Patient deteriorated in the ED and required intubation. Nephrology consultation requested by admitting physician. 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), hypertension, renal failure, stroke (2014) Past Surgical History: Other (Eye surgery 2016) Social history: denies: smoking, alcohol abuse Family history: other (Mother with ESRD on dialysis) Medications and Allergies Allergies Allergy/AdvReac Type Severity Reaction Status Date / Time cat dander Allergy Unknown Verified 02/28/16 15:34 Egg Derived Allergy Vomiting Verified 02/28/16 15:34 Home Medications Medication Instructions Recorded Confirmed Last Taken Type Aspirin [Aspirin BABY CHEW TAB] 81 mg PO QDAY 02/28/16 03/02/17 03/01/17 History Gabapentin [Neurontin] 300 mg PO Q8HR 02/28/16 03/02/17 03/01/17 History Hydrochlorothiazide [HCTZ] 25 mg PO QDAY 02/28/16 03/02/17 03/01/17 History Lisinopril [Zestril TAB] 20 mg PO QDAY 02/28/16 03/02/17 03/01/17 History Metformin HCl [Glucophage] 1,000 mg PO BID 02/28/16 03/02/17 03/01/17 History Metoprolol [Lopressor TAB] 100 mg PO BID 02/28/16 03/02/17 03/01/17 History cloNIDine [Catapres] 0.1 mg PO BID 02/28/16 03/02/17 03/01/17 History AtorvaSTATin [Lipitor] 40 mg PO QHS #30 tablet 11/14/16 03/02/17 03/01/17 Rx Latanoprost 0.005% [Xalatan 0.005%] 1 drop OU QPM 03/02/17 03/02/17 03/01/17 History amLODIPine [Norvasc] 10 mg PO DAILY 03/02/17 03/02/17 03/01/17 History Active Meds: Active Medications Acetaminophen (Tylenol) 650 mg PO Q4H PRN PRN Reason: Pain MILD(1-3)/Fever >100.5/CLARK Enoxaparin Sodium (Lovenox) 30 mg SUB-Q QDAY [facility] Last Admin: 03/02/17 13:34 Dose: 30 mg Heparin Sodium (Porcine) (Heparin) 5,000 unit IV SONG PRN PRN Reason: hemodialysis Hydrophilic Ointment (Vaseline Lip Therapy) 1 applic TP Q2HR PRN PRN Reason: Dry Lips Last Admin: 03/02/17 13:03 Dose: 1 applic Dextrose/Sodium Chloride (D5/0.45ns) 1,000 mls @ 150 mls/hr IV DIRECT HUGO Piperacillin Sod/Tazobactam Sod (Zosyn/Ns 2.25 Gm/50ml) 2.25 gm in 50 mls @ 100 mls/hr IV Q8HR HUGO PRN Reason: Protocol Last Admin: 03/02/17 15:26 Dose: 100 mls/hr Norepinephrine (Levophed Drip 4 Mg/Ns 250 Ml) 4 mg in 250 mls @ 7.5 mls/hr IV TITR HUGO; 2 MCG/MIN PRN Reason: Protocol Last Titration: 03/02/17 14:04 Dose: 30 mcg/min, 112.5 mls/hr Sodium Bicarbonate 150 meq/ (Dextrose) 1,150 mls @ 75 mls/hr IV DIRECT HUGO Last Admin: 03/02/17 11:45 Dose: 75 mls/hr Levofloxacin/Dextrose (Levaquin 500mg/100ml) 500 mg in 100 mls @ 100 mls/hr IV Q48H HUGO Sodium Chloride (Nacl 0.9%) 100 mls @ 999 mls/hr IV SONG PRN PRN Reason: Hypotension Multi-Ingred Cream/Lotion/Oil/Oint (Artificial Tears Ophth Oint) 1 applic OU Q4HR PRN PRN Reason: Dry Eye(s) Ondansetron HCl (Zofran) 4 mg IV Q4H PRN PRN Reason: N/V unrelieved by Reglan Pantoprazole Sodium (Protonix) 40 mg IV BID [facility] Last Admin: 03/02/17 13:33 Dose: 40 mg Sodium Chloride (Nacl 0.9% 500 Ml) 500 ml IV DIRECT HUGO Vancomycin HCl (Vancomycin Pharmacy To Dose) 1 each IV PKCONSULT HUGO PRN Reason: Protocol Review of Systems ROS unobtainable: due to endotracheal tube Exam - Vital Signs Vital signs: Vital Signs Pulse Resp Pulse Ox 93 H 13 97 03/02/17 00:02 03/02/17 00:02 03/02/17 00:02 - General Appearance General appearance: sedated on ventilator, intubated EENT: ATNC, other (ETT in place) Respiratory: Other (Coarse BS; no wheezes, rhonchi) Heart: regular, S1S2 Gastrointestinal: Absent: distended Integumentary: no rash Musculoskeletal: Present: other (no edema) Results - Lab Results 03/02/17 00:39 03/02/17 06:49 Most recent lab results Calcium 7.5 mg/dL (8.4-10.2) L D 03/02/17 06:49 Assessment and Plan Impression: * Acute kidney injury secondary to sepsis induced ATN * Sepsis - likely urinary source (urine is purulent) * Metabolic acidosis secondary to lactic acidosis * Hyperkalemia * Acute respiratory failure Plan: * Discussed case with vascular surgery; vascath now in place * STAT HD ordered for metabolic acidosis * Continue bicarb gtt * Blood cx pending; have ordered u/a and urine culture * Pressors to maintain MAP>65 * Empiric abx per primary team * Avoid nephrotoxins * Dose medications for renal function
--- NOTE | 2017-03-02 16:33 | Event Note ---
Date: 03/02/17 This is a 46 year old female with a history of chronic kidney disease. She was brought into the emergency room today with altered mental status and suspicion of sepsis. Her baseline creatinine of 1.6 was found to be 9 today. As such, a temporary dialysis catheter was requested.
--- NOTE | 2017-03-02 16:41 | Operative Report ---
Operative Report Operative Report: Procedure: Placement of a temporary dialysis catheter in the right common femoral vein. Date of Procedure: 03/02/2017 History/Indication: Acute on chronic renal failure Impression: Successful placement of a 30 cm try dialysis temporary dialysis catheter in the right common femoral vein. Physician: Crispin Alejandre MD Technique/Procedural Details: Informed consent was obtained from the patient's sister. After a timeout, the patient was prepped and draped in the usual sterile fashion. Local anesthetic was administered. An 18-gauge needle was used to access the right common femoral vein under direct ultrasound guidance. This was exchanged over a J- wire for tissue dilators. After serial tissue dilation, a 13 [place] Trialysis temporary hemodialysis catheter was placed. Each lumen demonstrated brisk aspiration and was easily flushed. Heparin was instilled into each dialysis limb. A sterile dressing was placed. The patient's overall condition was unchanged at the conclusion of the procedure, without immediate complication. Discussion: The right common femoral vein is patent and easily compressible. The newly placed hemodialysis catheter flushes and aspirates easily. The catheter is ready for use. Specimen: None EBL: <5 cc
[2017-03-02] MEDS: PITRESSin 20 UNIT in NACL 0.9% 100 ML IV SCH (16:45)
[2017-03-02 17:36] LABS: Bilirubin,Urine NEG (Negative); Blood,Urine SM (Negative); Ketones,Urine TR mg/dL (Negative); Leukocyte Esterase,Urine MOD (Negative); Nitrite,Urine NEG (Negative); Urobilinogen,Urine < 2.0 mg/dL (<2.0)
[2017-03-02 17:42] LABS: WBC,Urine > 182.0 /HPF (0.0-6.0)
[2017-03-02 17:43] LABS: RBC,Urine < 1.0 /HPF (0.0-6.0)
[2017-03-02] MEDS ORDERED: NACL 0.9% 1000 ML 1,000 ML ONE ×2 (18:00→23:35)
[2017-03-02] MEDS ORDERED: NACL 0.9 (PRIMING MACHINE ONLY DIALYSIS) MC ONE (19:53)
[2017-03-02] MEDS: NOVOLOG SUB-Q SCH (22:01)
[2017-03-02] MEDS ORDERED: ADRENALIN ONE (22:17)
[2017-03-02] MEDS: NEO-SYNEPHRINE 100 MG in NACL 0.9% 90 ML IV SCH (22:58)
[2017-03-02] MEDS ORDERED: NACL 0.9% 1000 ML 1,000 ML IV ONE (23:15)
[2017-03-02] MEDS ORDERED: SODIUM BICARBONATE IV SCH (23:15)
[2017-03-02 23:20] LABS: ISTAT Base Excess < -30; ISTAT HCO3 4.8; ISTAT PCO2 38.4 (35-45); ISTAT PH 6.707 (7.35-7.45); ISTAT PO2 380 (80-105); ISTAT SO2 100; ISTAT TCO2 6
[2017-03-02 23:37] LABS: BUN/Creatinine Ratio 7.5; Calcium 6.3 mg/dL (8.4-10.2); Chloride 88.4 mmol/L (98-107); Potassium 4.6 mmol/L (3.6-5.0)
[2017-03-03 00:03] LABS: INR TNR (0.87-1.13); Partial Thromboplastin Time TNR Sec. (24.2-36.6)
[2017-03-03] MEDS ORDERED: NACL 0.9% 1000 ML 1,000 ML IV ONE ×2 (00:17→12:31)
[2017-03-03] MEDS: PITRESSin 20 UNIT in NACL 0.9% 100 ML IV SCH ×2 (00:45→09:25)
[2017-03-03 01:09] LABS: INR 1.41 (0.87-1.13)
[2017-03-03 01:10] LABS: Partial Thromboplastin Time 38.8 Sec. (24.2-36.6)
[2017-03-03] MEDS: NOVOLOG SUB-Q SCH ×2 (01:10→03:46)
[2017-03-03] MEDS: LEVOPHED DRIP 4 MG/NS 250 ML 4 MG/250 ML BAG IV SCH ×4 (02:30→09:27)
[2017-03-03] MEDS: SODIUM BICARBONATE 150 MEQ in D5W 1,000 ML IV SCH (02:35)
[2017-03-03] MEDS: ZOSYN/NS 2.25 GM/50ML 2.25 GM/50 ML BAG IV SCH (05:11)
[2017-03-03 05:44] LABS: Mean Corpuscular HGB Conc 27 % (30-34); Mean Corpuscular Hemoglobin 27 pg (28-32); Mean Corpuscular Volume 100 fl (79-97); Platelet Count 299 K/mm3 (140-440); Red Blood Count 3.25 M/mm3 (3.65-5.03); Red Cell Distribution Width 16.4 % (13.2-15.2)
[2017-03-03 05:52] LABS: Hematocrit 32.3 % (30.3-42.9); Hemoglobin 8.9 gm/dl (10.1-14.3); White Blood Count 22.6 K/mm3 (4.5-11.0)
[2017-03-03 06:03] LABS: Albumin 1.5 g/dL (3.9-5); Albumin/Globulin Ratio 0.6 %; BUN/Creatinine Ratio 7.31; Bilirubin,Total 0.2 mg/dL (0.1-1.2); Chloride 92.2 mmol/L (98-107); Potassium 3.9 mmol/L (3.6-5.0); Total Protein 4.1 g/dL (6.3-8.2)
[2017-03-03 06:14] LABS: Calcium 5.7 mg/dL (8.4-10.2)
[2017-03-03 06:34] LABS: ISTAT Base Excess -26; ISTAT HCO3 6.3; ISTAT PCO2 29.4 (35-45); ISTAT PH 6.941 (7.35-7.45); ISTAT PO2 240 (80-105); ISTAT SO2 99; ISTAT TCO2 7
--- NOTE | 2017-03-03 08:11 | Progress Note ---
Assessment and Plan Assessment and plan: Severe Sepsis with septic shock likely secondary to urinary tract infection.Continue Zosyn, Levaquin and vancomycin. She is now on 4 pressors - Levophed, Dopamine, Phenylephrine and vasopressin. Poor prognosis UTI. Urinalysis shows a urinary tract infection Leukocytosis Acute respiratory failure. Intubated, on ventilator. Discussed with Painter Maintenance. Acute on CKD. hadd dialysis yesterday. Severe metabolic acidosis. Given multiple Bicarb iv. On Bicarb drip Toxic metabolic encephalopathy. Initially was lethargic, then was obtunded. Now she is unresponsive, comatose,intubated Severe lactic acidosis from sepsis HTN. She is now hypotensive. Diabetes mellitus type 2. History of 5 strokes. Full code status. Very poor prognosis. I had a meeting with family-two sons and her sisters, discussing her poor prognosis. For now they want us to do all that we can to keep her alive. History Interval history: patient had cardiac arrest twice last night, unresponsive without sedation Hospitalist Physical - Physical exam Narrative exam: Gen: Intubated, on ventilator HEENT: Normocephalic Neck: supple, no JVD Lungs:Lungs clear to auscultation, bilaterally, no crackles or wheeze Heart S1-S2 regular tachy, no murmurs rubs or gallop, Abdomen: soft, non tender, non distended, normal bowel sounds , Ext: No edema, clubbing or cyanosis. Neuro: Intuated, unresponsive, not on sedation - Constitutional Vitals: Temp Pulse Resp BP Pulse Ox 98.0 F 96 H 22 80/40 100 03/03/17 03:30 03/03/17 08:03 03/03/17 06:10 03/03/17 08:03 03/03/17 08:03 Results - Labs CBC & Chem 7: 03/03/17 03:30 03/03/17 03:30 Labs: Laboratory Last Values WBC 22.6 K/mm3 (4.5-11.0) H 03/03/17 03:30 RBC 3.25 M/mm3 (3.65-5.03) L 03/03/17 03:30 Hgb 8.9 gm/dl (10.1-14.3) L D 03/03/17 03:30 Hct 32.3 % (30.3-42.9) D 03/03/17 03:30 MCV 100 fl (79-97) H D 03/03/17 03:30 MCH 27 pg (28-32) L 03/03/17 03:30 MCHC 27 % (30-34) L 03/03/17 03:30 RDW 16.4 % (13.2-15.2) H 03/03/17 03:30 Plt Count 299 K/mm3 (140-440) 03/03/17 03:30 Add Manual Diff Complete 03/02/17 00:39 Total Counted 100 03/02/17 00:39 Seg Neuts % (Manual) 77.0 % (40.0-70.0) H 03/02/17 00:39 Band Neutrophils % 6.0 % 03/02/17 00:39 Lymphocytes % (Manual) 10.0 % (13.4-35.0) L 03/02/17 00:39 Reactive Lymphs % (Man) 0 % 03/02/17 00:39 Monocytes % (Manual) 7.0 % (0.0-7.3) 03/02/17 00:39 Eosinophils % (Manual) 0 % (0.0-4.3) 03/02/17 00:39 Metamyelocytes % 0 % 03/02/17 00:39 Myelocytes % 0 % 03/02/17 00:39 Promyelocytes % 0 % 03/02/17 00:39 Blast Cells % 0 % 03/02/17 00:39 Nucleated RBC % Not Reportable 03/02/17 00:39 Seg Neutrophils # Man 15.9 K/mm3 (1.8-7.7) H 03/02/17 00:39 Band Neutrophils # 1.2 K/mm3 03/02/17 00:39 Lymphocytes # (Manual) 2.1 K/mm3 (1.2-5.4) 03/02/17 00:39 Abs React Lymphs (Man) 0.0 K/mm3 03/02/17 00:39 Monocytes # (Manual) 1.4 K/mm3 (0.0-0.8) H 03/02/17 00:39 Eosinophils # (Manual) 0.0 K/mm3 (0.0-0.4) 03/02/17 00:39 Basophils # (Manual) 0.0 K/mm3 (0.0-0.1) 03/02/17 00:39 Metamyelocytes # 0.0 K/mm3 03/02/17 00:39 Myelocytes # 0.0 K/mm3 03/02/17 00:39 Promyelocytes # 0.0 K/mm3 03/02/17 00:39 Blast Cells # 0.0 K/mm3 03/02/17 00:39 WBC Morphology Not Reportable 03/02/17 00:39 Hypersegmented Neuts Not Reportable 03/02/17 00:39 Hyposegmented Neuts Not Reportable 03/02/17 00:39 Hypogranular Neuts Not Reportable 03/02/17 00:39 Smudge Cells Not Reportable 03/02/17 00:39 Toxic Granulation Not Reportable 03/02/17 00:39 Toxic Vacuolation Not Reportable 03/02/17 00:39 Dohle Bodies Not Reportable 03/02/17 00:39 Pelger-Huet Anomaly Not Reportable 03/02/17 00:39 Cinthia Rods Not Reportable 03/02/17 00:39 Platelet Estimate Appears normal 03/02/17 00:39 Clumped Platelets Not Reportable 03/02/17 00:39 Plt Clumps, EDTA Not Reportable 03/02/17 00:39 Large Platelets Few 03/02/17 00:39 Giant Platelets Not Reportable 03/02/17 00:39 Platelet Satelliting Not Reportable 03/02/17 00:39 Plt Morphology Comment Not Reportable 03/02/17 00:39 RBC Morphology Not Reportable 03/02/17 00:39 Dimorphic RBCs Not Reportable 03/02/17 00:39 Polychromasia Not Reportable 03/02/17 00:39 Hypochromasia 1+ 03/02/17 00:39 Poikilocytosis Not Reportable 03/02/17 00:39 Anisocytosis 1+ 03/02/17 00:39 Microcytosis Not Reportable 03/02/17 00:39 Macrocytosis Not Reportable 03/02/17 00:39 Spherocytes Not Reportable 03/02/17 00:39 Pappenheimer Bodies Not Reportable 03/02/17 00:39 Sickle Cells Not Reportable 03/02/17 00:39 Target Cells Not Reportable 03/02/17 00:39 Tear Drop Cells Not Reportable 03/02/17 00:39 Ovalocytes Not Reportable 03/02/17 00:39 Helmet Cells Not Reportable 03/02/17 00:39 [place] Bodies Not Reportable 03/02/17 00:39 [place] Rings Not Reportable 03/02/17 00:39 [place] Cells Not Reportable 03/02/17 00:39 Bite Cells Not Reportable 03/02/17 00:39 Crenated Cell Not Reportable 03/02/17 00:39 Elliptocytes Not Reportable 03/02/17 00:39 Acanthocytes (Spur) Not Reportable 03/02/17 00:39 Rouleaux Not Reportable 03/02/17 00:39 Hemoglobin C Crystals Not Reportable 03/02/17 00:39 Schistocytes Not Reportable 03/02/17 00:39 Malaria parasites Not Reportable 03/02/17 00:39 Doug Bodies Not Reportable 03/02/17 00:39 Hem Pathologist Commnt No 03/02/17 00:39 PT 17.2 Sec. (12.2-14.9) H 03/03/17 00:30 INR 1.41 (0.87-1.13) H 03/03/17 00:30 APTT 38.8 Sec. (24.2-36.6) H 03/03/17 00:30 POC ABG pH 6.941 (7.35-7.45) L 03/03/17 05:32 POC ABG pCO2 29.4 (35-45) L 03/03/17 05:32 POC ABG pO2 240 (80-105) H 03/03/17 05:32 POC ABG HCO3 6.3 03/03/17 05:32 POC ABG Total CO2 7 03/03/17 05:32 POC ABG O2 Sat 99 03/03/17 05:32 POC ABG Base Excess -26 03/03/17 05:32 FiO2 70 % 03/03/17 05:32 Sodium 146 mmol/L (137-145) H 03/03/17 03:30 Potassium 3.9 mmol/L (3.6-5.0) 03/03/17 03:30 Chloride 92.2 mmol/L (98-107) L 03/03/17 03:30 Carbon Dioxide 4 mmol/L (22-30) L* 03/03/17 03:30 Anion Gap 54 mmol/L 03/03/17 03:30 BUN 49 mg/dL (7-17) H 03/03/17 03:30 Creatinine 6.7 mg/dL (0.7-1.2) H 03/03/17 03:30 Estimated GFR 8 ml/min 03/03/17 03:30 BUN/Creatinine Ratio 7.31 % 03/03/17 03:30 Glucose 301 mg/dL (65-100) H 03/03/17 03:30 POC Glucose 300 (70-105) H 03/03/17 03:46 Lactic Acid 21.7 mmol/L (0.7-2.0) H* 03/02/17 23:12 Calcium 5.7 mg/dL (8.4-10.2) L* 03/03/17 03:30 Total Bilirubin 0.20 mg/dL (0.1-1.2) 03/03/17 03:30 AST 410 units/L (5-40) H 03/03/17 03:30 ALT 323 units/L (7-56) H 03/03/17 03:30 Alkaline Phosphatase 312 units/L (35-129) H 03/03/17 03:30 Total Creatine Kinase 156 units/L (30-135) H 03/02/17 06:49 CK-MB (CK-2) 8.2 ng/mL (0.0-4.0) H 03/02/17 06:49 CK-MB (CK-2) Rel Index 5.2 (0-4) H 03/02/17 06:49 Troponin T 0.183 ng/mL (0.00-0.029) H* 03/02/17 06:49 Total Protein 4.1 g/dL (6.3-8.2) L D 03/03/17 03:30 Albumin 1.5 g/dL (3.9-5) L 03/03/17 03:30 Albumin/Globulin Ratio 0.6 % 03/03/17 03:30 Triglycerides 123 mg/dL (2-149) 03/02/17 06:49 Cholesterol 97 mg/dL (50-199) 03/02/17 06:49 LDL Cholesterol Direct 31 mg/dL (50-130) L 03/02/17 06:49 HDL Cholesterol 42 mg/dL (40-59) 03/02/17 06:49 Cholesterol/HDL Ratio 2.30 % 03/02/17 06:49 Urine Color Yellow (Yellow) 03/02/17 16:00 Urine Turbidity Turbid (Clear) 03/02/17 16:00 Urine pH 5.0 (5.0-7.0) 03/02/17 16:00 Ur Specific [place] 1.021 (1.003-1.030) 03/02/17 16:00 Urine Protein 100 mg/dl mg/dL (Negative) 03/02/17 16:00 Urine Glucose (UA) 150 mg/dL (Negative) 03/02/17 16:00 Urine Ketones Tr mg/dL (Negative) 03/02/17 16:00 Urine Blood Sm (Negative) 03/02/17 16:00 Urine Nitrite Neg (Negative) 03/02/17 16:00 Urine Bilirubin Neg (Negative) 03/02/17 16:00 Urine Urobilinogen < 2.0 mg/dL (<2.0) 03/02/17 16:00 Ur Leukocyte Esterase Mod (Negative) 03/02/17 16:00 Urine WBC (Auto) > 182.0 /HPF (0.0-6.0) H 03/02/17 16:00 Urine RBC (Auto) < 1.0 /HPF (0.0-6.0) 03/02/17 16:00 Urine Bacteria (Auto) 1+ /HPF (Negative) 03/02/17 07:17 Urine WBC Clumps 3+ /HPF 03/02/17 16:00 Hepatitis A IgM Ab Non-reactive (NonReactive) 03/02/17 18:17 Hep B Core IgM Ab Non-reactive (NonReactive) 03/02/17 18:17 Hepatitis C Antibody Non-reactive (NonReactive) 03/02/17 18:17 Blood Type O POSITIVE 03/02/17 23:10 Antibody Screen TNR 03/02/17 23:10 PATTI Antibody Screen Negative 03/02/17 23:10
[2017-03-03 08:26] LABS: Basophils % (Manual) 0 % (0.0-1.8); Blastocytes % (Manual) 0 %
[2017-03-03 08:27] LABS: Anisocytosis 1+; Diff Status Complete
[2017-03-03] MEDS ORDERED: SODIUM BICARBONATE IV ONE ×3 (08:55→11:00)
[2017-03-03] MEDS ORDERED: INTROPIN DRIP 800 MG/D5W 250 ML 800 MG/250 ML BAG IV SCH (09:00)
[2017-03-03] MEDS: LOVENOX SUB-Q SCH (09:04)
[2017-03-03] MEDS: PROTONIX IV SCH (09:04)
[2017-03-03] MEDS: NEO-SYNEPHRINE 100 MG in NACL 0.9% 90 ML IV SCH ×2 (09:26→12:40)
--- NOTE | 2017-03-03 09:29 | Consultation ---
History of Present Illness Consult date: 03/03/17 Requesting physician: BONNY MOJICA Reason for consult: other (cardiac arrest, acute respiratory failure.) History of present illness: 46 y/o female, with history of multiple embolic strokes, admitted with acute respiratory failure secondary to cardiac arrest, secondary to severe metabolic acidosis from acute renal failure. Patient currently on vent and 4 pressors, no sedation and is not responsive. has had a pH of less than 7 since yesterday and there is hardly any bicarb left in the hospital. Patient has been on a bicarb drip and received HD on yesterday. Nephew at bedside. 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), hypertension, renal failure, stroke (2014) Past Surgical History: Other (Eye surgery 2016) Social history: denies: smoking, alcohol abuse Family history: other (Mother with ESRD on dialysis) Medications and Allergies Allergies Allergy/AdvReac Type Severity Reaction Status Date / Time cat dander Allergy Unknown Verified 02/28/16 15:34 Egg Derived Allergy Vomiting Verified 02/28/16 15:34 Home Medications Medication Instructions Recorded Confirmed Last Taken Type Aspirin [Aspirin BABY CHEW TAB] 81 mg PO QDAY 02/28/16 03/02/17 03/01/17 History Gabapentin [Neurontin] 300 mg PO Q8HR 02/28/16 03/02/17 03/01/17 History Hydrochlorothiazide [HCTZ] 25 mg PO QDAY 02/28/16 03/02/17 03/01/17 History Lisinopril [Zestril TAB] 20 mg PO QDAY 02/28/16 03/02/17 03/01/17 History Metformin HCl [Glucophage] 1,000 mg PO BID 02/28/16 03/02/17 03/01/17 History Metoprolol [Lopressor TAB] 100 mg PO BID 02/28/16 03/02/17 03/01/17 History cloNIDine [Catapres] 0.1 mg PO BID 02/28/16 03/02/17 03/01/17 History AtorvaSTATin [Lipitor] 40 mg PO QHS #30 tablet 11/14/16 03/02/17 03/01/17 Rx Latanoprost 0.005% [Xalatan 0.005%] 1 drop OU QPM 03/02/17 03/02/17 03/01/17 History amLODIPine [Norvasc] 10 mg PO DAILY 03/02/17 03/02/17 03/01/17 History Active Meds: Active Medications Acetaminophen (Tylenol) 650 mg PO Q4H PRN PRN Reason: Pain MILD(1-3)/Fever >100.5/CLARK Enoxaparin Sodium (Lovenox) 30 mg SUB-Q QDAY HUGO Last Admin: 03/03/17 09:04 Dose: 30 mg Heparin Sodium (Porcine) (Heparin) 5,000 unit IV SONG PRN PRN Reason: hemodialysis Hydrophilic Ointment (Vaseline Lip Therapy) 1 applic TP Q2HR PRN PRN Reason: Dry Lips Last Admin: 03/02/17 13:03 Dose: 1 applic Piperacillin Sod/Tazobactam Sod (Zosyn/Ns 2.25 Gm/50ml) 2.25 gm in 50 mls @ 100 mls/hr IV Q8HR HUGO PRN Reason: Protocol Last Admin: 03/03/17 05:11 Dose: 100 mls/hr Norepinephrine (Levophed Drip 4 Mg/Ns 250 Ml) 4 mg in 250 mls @ 7.5 mls/hr IV TITR HUGO; 2 MCG/MIN PRN Reason: Protocol Last Admin: 03/03/17 06:36 Dose: 30 mcg/min, 112.5 mls/hr Sodium Bicarbonate 150 meq/ (Dextrose) 1,150 mls @ 75 mls/hr IV DIRECT HUGO Last Admin: 03/03/17 02:35 Dose: 75 mls/hr Levofloxacin/Dextrose (Levaquin 500mg/100ml) 500 mg in 100 mls @ 100 mls/hr IV Q48H HUGO Sodium Chloride (Nacl 0.9%) 100 mls @ 999 mls/hr IV SONG PRN PRN Reason: Hypotension Vasopressin 20 unit/ Sodium (Chloride) 101 mls @ 9.09 mls/hr IV TITR HUGO; 0.03 UNITS/MIN PRN Reason: Protocol Last Admin: 03/03/17 00:45 Dose: 0.04 units/min, 12.12 mls/hr Phenylephrine HCl 100 mg/ (Sodium Chloride) 100 mls @ 3 mls/hr IV TITR HUGO; 50 MCG/MIN PRN Reason: Protocol Last Titration: 03/03/17 06:36 Dose: 350 mcg/min, 21 mls/hr Dopamine HCl/Dextrose (Intropin Drip 800 Mg/D5w 250 Ml) 800 mg in 250 mls @ 2.211 mls/hr IV TITR HUGO; 2 MCG/KG/MIN PRN Reason: Protocol Last Admin: 03/03/17 08:32 Dose: 10 mcg/kg/min, 11.056 mls/hr Insulin Aspart (Novolog) 0 units SUB-Q Q4HR HUGO PRN Reason: Protocol Last Admin: 03/03/17 03:46 Dose: Not Given Multi-Ingred Cream/Lotion/Oil/Oint (Artificial Tears Ophth Oint) 1 applic OU Q4HR PRN PRN Reason: Dry Eye(s) Ondansetron HCl (Zofran) 4 mg IV Q4H PRN PRN Reason: N/V unrelieved by Reganíbal Pantoprazole Sodium (Protonix) 40 mg IV BID HUGO Last Admin: 03/03/17 09:04 Dose: 40 mg Sodium Bicarbonate (Sodium Bicarbonate) 50 meq IV DIRECT HUGO Stop: 03/03/17 23:16 Last Admin: 03/02/17 23:50 Dose: 50 meq Sodium Bicarbonate (Sodium Bicarbonate) 50 meq IV ONCE ONE Stop: 03/03/17 10:01 Sodium Chloride (Nacl 0.9% 500 Ml) 500 ml IV DIRECT HUGO Vancomycin HCl (Vancomycin Pharmacy To Dose) 1 each IV PKCONSULT HUGO PRN Reason: Protocol Review of Systems ROS unobtainable: due to endotracheal tube, due to mental status Physical Examination Vital signs: Vital Signs Pulse Resp Pulse Ox 93 H 13 97 03/02/17 00:02 03/02/17 00:02 03/02/17 00:02 General appearance: comatose Eyes: icteric ENT: other (orally intubated, not sedated) Effort: normal Ascultation: Bilateral: clear Percussion: Bilateral: not dull Cardiovascular: other (sinus tach) Gastrointestinal: soft Extremities: no edema, edema, anasarca unable to assess Results - Laboratory Findings CBC and BMP: 03/03/17 03:30 03/03/17 03:30 ABG POC ABG pH 6.941 (7.35-7.45) L 03/03/17 05:32 POC ABG pCO2 29.4 (35-45) L 03/03/17 05:32 POC ABG pO2 240 (80-105) H 03/03/17 05:32 POC ABG HCO3 6.3 03/03/17 05:32 POC ABG Total CO2 7 03/03/17 05:32 POC ABG O2 Sat 99 03/03/17 05:32 PT/INR, D-dimer PT 17.2 Sec. (12.2-14.9) H 03/03/17 00:30 INR 1.41 (0.87-1.13) H 03/03/17 00:30 Abnormal lab findings: Abnormal Labs 03/02/17 03/02/17 03/02/17 06:49 06:49 07:17 WBC RBC Hgb MCV MCH MCHC RDW Seg Neuts % (Manual) Lymphocytes % (Manual) Seg Neutrophils # Man PT INR APTT POC ABG pH POC ABG pCO2 POC ABG pO2 Sodium Chloride 88.2 L Carbon Dioxide 4 L* BUN 69 H Creatinine 8.7 H Glucose 261 H POC Glucose Lactic Acid Calcium 7.5 L D AST ALT Alkaline Phosphatase Total Creatine Kinase 156 H CK-MB (CK-2) 8.2 H CK-MB (CK-2) Rel Index 5.2 H Troponin T 0.183 H* Total Protein Albumin LDL Cholesterol Direct 31 L Urine WBC (Auto) > 182.0 H 03/02/17 03/02/17 03/02/17 08:30 10:30 10:49 WBC RBC Hgb MCV MCH MCHC RDW Seg Neuts % (Manual) Lymphocytes % (Manual) Seg Neutrophils # Man PT INR APTT POC ABG pH 6.857 L POC ABG pCO2 27.8 L POC ABG pO2 318 H Sodium Chloride Carbon Dioxide BUN Creatinine Glucose POC Glucose 297 H Lactic Acid 19.5 H* Calcium AST ALT Alkaline Phosphatase Total Creatine Kinase CK-MB (CK-2) CK-MB (CK-2) Rel Index Troponin T Total Protein Albumin LDL Cholesterol Direct Urine WBC (Auto) 03/02/17 03/02/17 03/02/17 11:16 11:47 15:05 WBC RBC Hgb MCV MCH MCHC RDW Seg Neuts % (Manual) Lymphocytes % (Manual) Seg Neutrophils # Man PT INR APTT POC ABG pH 6.829 L POC ABG pCO2 33.9 L POC ABG pO2 147 H Sodium Chloride Carbon Dioxide BUN Creatinine Glucose POC Glucose 270 H Lactic Acid 13.6 H* Calcium AST ALT Alkaline Phosphatase Total Creatine Kinase CK-MB (CK-2) CK-MB (CK-2) Rel Index Troponin T Total Protein Albumin LDL Cholesterol Direct Urine WBC (Auto) 03/02/17 03/02/17 03/02/17 16:00 21:06 23:00 WBC RBC Hgb MCV MCH MCHC RDW Seg Neuts % (Manual) Lymphocytes % (Manual) Seg Neutrophils # Man PT 64.3 H INR APTT POC ABG pH POC ABG pCO2 POC ABG pO2 Sodium Chloride Carbon Dioxide BUN Creatinine Glucose POC Glucose 369 H Lactic Acid Calcium AST ALT Alkaline Phosphatase Total Creatine Kinase CK-MB (CK-2) CK-MB (CK-2) Rel Index Troponin T Total Protein Albumin LDL Cholesterol Direct Urine WBC (Auto) > 182.0 H 03/02/17 03/02/17 03/02/17 23:06 23:12 23:24 WBC RBC Hgb MCV MCH MCHC RDW Seg Neuts % (Manual) Lymphocytes % (Manual) Seg Neutrophils # Man PT INR APTT POC ABG pH 6.707 L POC ABG pCO2 POC ABG pO2 380 H Sodium Chloride 88.4 L Carbon Dioxide 3 L* BUN 48 H Creatinine 6.4 H Glucose 360 H POC Glucose Lactic Acid 21.7 H* Calcium 6.3 L D AST ALT Alkaline Phosphatase Total Creatine Kinase CK-MB (CK-2) CK-MB (CK-2) Rel Index Troponin T Total Protein Albumin LDL Cholesterol Direct Urine WBC (Auto) 03/03/17 03/03/17 03/03/17 00:30 01:10 03:30 WBC 22.6 H RBC 3.25 L Hgb 8.9 L D MCV 100 H D MCH 27 L MCHC 27 L RDW 16.4 H Seg Neuts % (Manual) 85.0 H Lymphocytes % (Manual) 6.0 L Seg Neutrophils # Man 19.2 H PT 17.2 H INR 1.41 H APTT 38.8 H POC ABG pH POC ABG pCO2 POC ABG pO2 Sodium Chloride Carbon Dioxide BUN Creatinine Glucose POC Glucose 318 H Lactic Acid Calcium AST ALT Alkaline Phosphatase Total Creatine Kinase CK-MB (CK-2) CK-MB (CK-2) Rel Index Troponin T Total Protein Albumin LDL Cholesterol Direct Urine WBC (Auto) 03/03/17 03/03/1703/03/17 03:30 03:46 05:32 WBC RBC Hgb MCV MCH MCHC RDW Seg Neuts % (Manual) Lymphocytes % (Manual) Seg Neutrophils # Man PT INR APTT POC ABG pH 6.941 L POC ABG pCO2 29.4 L POC ABG pO2 240 H Sodium 146 H Chloride 92.2 L Carbon Dioxide 4 L* BUN 49 H Creatinine 6.7 H Glucose 301 H POC Glucose 300 H Lactic Acid Calcium 5.7 L* AST 410 H ALT 323 H Alkaline Phosphatase 312 H Total Creatine Kinase CK-MB (CK-2) CK-MB (CK-2) Rel Index Troponin T Total Protein 4.1 L D Albumin 1.5 L LDL Cholesterol Direct Urine WBC (Auto) - Diagnostic Findings Chest x-ray: image reviewed (no acute process, cardiomegaly) Assessment and Plan 46 y/o female with severe sepsis with shock, acute respiratory failure, acute renal failure with severe metabolic acidosis and comatose, not medically induced. 1. Long discussion with nephew at bedside. Patient is worse overall in that now she is requiring 4 pressor therapy. She is not breathing over the vent and she is not on any medication for sedation. Her BUN and Cr are better but her lactic acid is worsening and even if she has ischemic bowel she is not a candidate for surgery or any other invasive therapy. I explained to the family present that all vitals seen on the monitor are result of the medication that we are giving her. They will pass the information on to the rest of the family. Nursing, informed me that primary team will speak with sons. Overall prognosis here is very poor given her prolonged time in severe metabolic acidemia. Would suggest comfort measures. For now continue supportive care. CCT 31 minutes.
--- NOTE | 2017-03-03 09:33 | XRay Report ---
AP CHEST :03/02/17 22:45 CLINICAL: Status post code and resuscitation. COMPARISON:Same day at 10:39 FINDINGS: The endotracheal tube remains in satisfactory position. A nasogastric tube is satisfactory. Right PICC line crosses the midline and the tip is in the left brachiocephalic vein. Mild left basal subsegmental atelectasis. Lungs are otherwise clear. No pneumothorax. The bones are unremarkable. No fracture identified. IMPRESSION: Mild left basal sub-segmental atelectasis and otherwise normal.
[2017-03-03] MEDS ORDERED: NACL 0.9% 100 ML IV PRN (10:30)
[2017-03-03] MEDS ORDERED: NACL 0.9% 1000 ML 1,000 ML ONE (12:04)
[2017-03-03] MEDS ORDERED: ADRENALIN 16 MG in NACL 0.9% 250ML 234 ML IV SCH (13:00)
--- NOTE | 2017-03-03 13:48 | Progress Note ---
Assessment and Plan Impression: * Acute kidney injury secondary to sepsis induced ATN * Septic shock - likely urinary source (urine is purulent) * GNR UTI * Metabolic acidosis secondary to lactic acidosis - worsening * Hyperkalemia * Acute respiratory failure Plan: * Patient continued to deteriorate overnight. Hemodialysis attempted but patient w/ decline in SBP to 60s. She is now hypotensive requiring multiple pressors - Epi recently added; due to hemodynamic instability, she is unable to tolerate hemodialysis - SBP in 50s * Have ordered stress dose steroids * Pressors to maintain MAP>65 * Empiric abx per primary team * Avoid nephrotoxins * Dose medications for renal function * Prognosis is grim Subjective Date of service: 03/03/17 Objective - Vital Signs Vital signs: Vital Signs - 12hr 03/03/17 03/03/17 03/03/17 01:50 02:01 02:11 Temperature Pulse Rate 104 H 101 H 101 H Respiratory 22 22 22 Rate Blood Pressure 108/51 103/49 107/54 O2 Sat by Pulse 100 100 100 Oximetry O2 Sat by Pulse Oximetry [ Anterior Bilateral Throughout] 03/03/17 03/03/17 03/03/17 02:20 02:31 02:41 Temperature Pulse Rate 100 H 100 H 100 H Respiratory 22 22 22 Rate Blood Pressure 104/52 100/54 102/54 O2 Sat by Pulse 100 100 100 Oximetry O2 Sat by Pulse Oximetry [ Anterior Bilateral Throughout] 03/03/17 03/03/17 03/03/17 02:50 02:54 03:01 Temperature Pulse Rate 99 H 99 H Respiratory 22 22 Rate Blood Pressure 100/53 99/51 O2 Sat by Pulse 100 100 Oximetry O2 Sat by Pulse Oximetry [ Anterior Bilateral Throughout] 03/03/17 03/03/17 03/03/17 03:11 03:15 03:20 Temperature Pulse Rate 99 H 76 97 H Respiratory 22 22 Rate Blood Pressure 100/51 95/45 O2 Sat by Pulse 100 100 100 Oximetry O2 Sat by Pulse Oximetry [ Anterior Bilateral Throughout] 03/03/17 03/03/17 03/03/17 03:30 03:41 03:50 Temperature 98.0 F Pulse Rate 96 H 97 H 96 H Respiratory 22 22 22 Rate Blood Pressure 86/68 97/42 90/48 O2 Sat by Pulse 100 100 Oximetry O2 Sat by Pulse Oximetry [ Anterior Bilateral Throughout] 04/03/03/17 03/03/17 04:01 04:11 04:21 Temperature Pulse Rate 95 H 76 93 H Respiratory 22 22 22 Rate Blood Pressure 90/47 55/29 98/45 O2 Sat by Pulse 100 100 100 Oximetry O2 Sat by Pulse Oximetry [ Anterior Bilateral Throughout] 03/03/17 03/03/17 03/03/17 04:30 04:41 04:51 Temperature Pulse Rate 95 H 95 H 96 H Respiratory 22 22 22 Rate Blood Pressure 88/47 94/49 94/50 O2 Sat by Pulse 100 100 100 Oximetry O2 Sat by Pulse Oximetry [ Anterior Bilateral Throughout] 03/03/17 03/03/17 03/03/17 05:00 05:11 05:16 Temperature Pulse Rate 95 H 94 H Respiratory 22 22 22 Rate Blood Pressure 92/47 98/47 O2 Sat by Pulse 100 100 100 Oximetry O2 Sat by Pulse Oximetry [ Anterior Bilateral Throughout] 03/03/17 03/03/17 03/03/17 05:21 05:30 05:34 Temperature Pulse Rate 94 H 93 H 93 H Respiratory 22 22 Rate Blood Pressure 93/47 86/46 90/48 O2 Sat by Pulse 100 100 100 Oximetry O2 Sat by Pulse Oximetry [ Anterior Bilateral Throughout] 03/03/17 03/03/17 03/03/17 05:41 05:51 06:00 Temperature Pulse Rate 88 90 90 Respiratory 22 22 22 Rate Blood Pressure 83/42 88/47 90/46 O2 Sat by Pulse 100 100 100 Oximetry O2 Sat by Pulse Oximetry [ Anterior Bilateral Throughout] 03/03/17 03/03/17 03/03/17 06:10 06:21 06:30 Temperature Pulse Rate 90 90 78 Respiratory 22 22 23 Rate Blood Pressure 87/46 85/46 60/30 O2 Sat by Pulse 100 98 Oximetry O2 Sat by Pulse Oximetry [ Anterior Bilateral Throughout] 03/03/17 03/03/17 03/03/17 06:41 06:50 07:00 Temperature Pulse Rate 90 90 84 Respiratory 22 22 22 Rate Blood Pressure 86/46 89/47 79/40 O2 Sat by Pulse 100 100 100 Oximetry O2 Sat by Pulse Oximetry [ Anterior Bilateral Throughout] 03/03/17 03/03/17 03/03/17 07:11 07:21 07:31 Temperature Pulse Rate 81 94 H 100 H Respiratory 22 22 22 Rate Blood Pressure 74/40 96/48 98/51 O2 Sat by Pulse 100 100 100 Oximetry O2 Sat by Pulse Oximetry [ Anterior Bilateral Throughout] 03/03/17 03/03/17 03/03/17 07:40 07:51 08:01 Temperature Pulse Rate 102 H 98 H 96 H Respiratory 22 22 Rate Blood Pressure 99/68 83/41 82/38 O2 Sat by Pulse 100 100 Oximetry O2 Sat by Pulse Oximetry [ Anterior Bilateral Throughout] 03/03/17 03/03/17 03/03/17 08:03 08:10 08:21 Temperature Pulse Rate 96 H 94 H 93 H Respiratory 22 22 Rate Blood Pressure 80/40 84/40 82/38 O2 Sat by Pulse 100 100 100 Oximetry O2 Sat by Pulse Oximetry [ Anterior Bilateral Throughout] 03/03/17 03/03/17 03/03/17 08:31 08:40 08:43 Temperature Pulse Rate 105 H 112 H Respiratory 22 22 22 Rate Blood Pressure 97/45 107/52 O2 Sat by Pulse 100 100 100 Oximetry O2 Sat by Pulse Oximetry [ Anterior Bilateral Throughout] 03/03/17 03/03/17 03/03/17 08:51 09:01 09:10 Temperature Pulse Rate 115 H 116 H 115 H Respiratory 22 22 22 Rate Blood Pressure 79/40 111/54 106/54 O2 Sat by Pulse 100 100 Oximetry O2 Sat by Pulse Oximetry [ Anterior Bilateral Throughout] 03/03/17 03/03/17 03/03/17 09:21 09:31 09:40 Temperature Pulse Rate 114 H 116 H 119 H Respiratory 22 22 22 Rate Blood Pressure 109/51 113/53 106/50 O2 Sat by Pulse 100 100 Oximetry O2 Sat by Pulse Oximetry [ Anterior Bilateral Throughout] 03/03/17 03/03/17 03/03/17 09:51 10:01 10:10 Temperature Pulse Rate 115 H 100 H 95 H Respiratory 22 22 22 Rate Blood Pressure 100/48 92/41 90/40 O2 Sat by Pulse 100 100 100 Oximetry O2 Sat by Pulse Oximetry [ Anterior Bilateral Throughout] 03/03/17 03/03/17 03/03/17 10:21 10:31 10:41 Temperature Pulse Rate 108 H 115 H 115 H Respiratory 22 22 22 Rate Blood Pressure 95/42 105/47 106/51 O2 Sat by Pulse 100 100 100 Oximetry O2 Sat by Pulse Oximetry [ Anterior Bilateral Throughout] 03/03/17 03/03/17 03/03/17 10:51 11:01 11:07 Temperature Pulse Rate 113 H 112 H 112 H Respiratory 22 22 Rate Blood Pressure 100/49 98/50 98/50 O2 Sat by Pulse 100 100 100 Oximetry O2 Sat by Pulse Oximetry [ Anterior Bilateral Throughout] 03/03/17 03/03/17 03/03/17 11:10 11:21 11:30 Temperature 97.6 F Pulse Rate 111 H 110 H 108 H Respiratory 22 22 22 Rate Blood Pressure 100/48 96/47 92/47 O2 Sat by Pulse 98 100 Oximetry O2 Sat by Pulse 100 Oximetry [ Anterior Bilateral Throughout] 03/03/17 03/03/17 03/03/17 11:31 11:41 11:45 Temperature Pulse Rate 109 H 107 H 105 H Respiratory 22 22 Rate Blood Pressure 94/49 92/45 92/45 O2 Sat by Pulse 100 Oximetry O2 Sat by Pulse Oximetry [ Anterior Bilateral Throughout] 03/03/17 03/03/17 03/03/17 11:50 12:00 12:11 Temperature Pulse Rate 106 H 107 H 107 H Respiratory 22 22 22 Rate Blood Pressure 92/45 64/32 66/34 O2 Sat by Pulse 99 97 98 Oximetry O2 Sat by Pulse Oximetry [ Anterior Bilateral Throughout] 03/03/17 03/03/17 03/03/17 12:15 12:21 12:30 Temperature Pulse Rate 108 H 109 H 114 H Respiratory 22 22 Rate Blood Pressure 69/33 70/31 73/36 O2 Sat by Pulse 99 96 Oximetry O2 Sat by Pulse Oximetry [ Anterior Bilateral Throughout] 03/03/17 03/03/17 03/03/17 12:45 13:00 13:15 Temperature Pulse Rate 115 H 117 H 118 H Respiratory Rate Blood Pressure 79/38 74/40 80/42 O2 Sat by Pulse Oximetry O2 Sat by Pulse Oximetry [ Anterior Bilateral Throughout] 03/03/17 13:30 Temperature Pulse Rate 116 H Respiratory Rate Blood Pressure 75/37 O2 Sat by Pulse Oximetry O2 Sat by Pulse Oximetry [ Anterior Bilateral Throughout] - Lab 03/03/17 03:30 03/03/17 03:30 Most recent lab results Calcium 5.7 mg/dL (8.4-10.2) L* 03/03/17 03:30
[2017-03-03] MEDS ORDERED: ATIVAN IV PRN (14:58)
[2017-03-03] MEDS ORDERED: BENADRYL IV PRN (14:58)
[2017-03-03] MEDS ORDERED: ROBINUL IV PRN (14:58)
[2017-03-03] MEDS ORDERED: MORPHINE IV PRN ×2 (14:58)
[2017-03-03 15:51] VITALS: BP 86/45
--- NOTE | 2017-03-03 16:00 | Death Note ---
Note Date of : 03/03/17 Time of : 15:34 Time Pronounced: 15:55 - Preliminary Cause of (problem) (1) Septic shock Preliminary cause of
--- NOTE | 2017-03-03 16:00 | Death Summary ---
Summary - Providers Date of service: 03/03/17 Consults: 03/02/17 07:48 Consult to PICC Line RN [CONS] Stat Reason For Exam: hypotension Type Line:: PICC 03/02/17 10:17 Consult to Dietitian/Nutrition [CONS] Routine Physician Instructions: Reason For Exam: Reason for Consult: Nutrition Recommendations Reason for Consult: Write/Manage Tube Feeding 03/02/17 10:18 Consult to Physician [CONS] Routine Consulting Provider: KARLA HUITRON Reason For Exam: acute respiratory failure, intubated Place consult to:: diane Notified:: y Was contact made?: Yes Comment:: called md 03/02/17 10:54 Consult to Dietitian/Nutrition [CONS] Routine Physician Instructions: Reason For Exam: Reason for Consult: Write/Manage TPN/PPN Attending: BONNY MOJICA - summary Date of admission: 03/02/17 06:47 Date of : 03/03/17 Procedures/treatments rendered: Patient is 46 yo with history of diabetes mellitus type 2, multiple strokes x 5 , hypertension. She was brought in because of generalized weakness, syncope, low blood glucose. Her glucose was 42 and she was given 50% Dextrose. In ED , labs show acute on CKD with Creatinine of 9.5 and hyperkalemia with Potassium 5.8. She also had metabolic acidosis with CO2 of 10, urinary tract on urinalysis. She was started on Zosyn iv , started on iv fluids and admitted. For hyperkalemia, was given Kayexalate and Calcium gluconate. While still in ED , her mental status became worse, became more and more lethargic, then obtunded and also had respiratory distress so was intubated and put on ventilator. After receiving several iv fluid bolus , BP remained low so was started on Levophed. She was transferred to ICU. Patient was evaluated by Inside Outside Sales Representative and Felt Hat Mellowing Machine Operator. She had severe sepsis with septic shock. Repeat labs show persistent severe metabolic acidosis, lactic acidosis so was given Bicarb. She continued to worsen, had cardiac arrest twice but was resuscitated. By following day, she was on 5 pressors at maximum dose. Multiple discussions were had with family and they decided on withdrawal of care. She was extubated and pressors discontinued. She on 03/03/17 at 15:34. - Final diagnosis (1) Septic shock Note: Final diagnosis: (2) Sepsis Qualifiers: Sepsis type: S Note: Final diagnosis: (3) UTI (urinary tract infection) Qualifiers: Urinary tract infection type: U Hematuria presence: H Indwelling urinary catheter type: I Encounter type: E Note: Final diagnosis: (4) Fever Qualifiers: Fever type: F Encounter type: E Note: Final diagnosis: (5) Hyperkalemia Note: Final diagnosis: (6) Hypoglycemia Note: Final diagnosis:
[2017-03-03 17:05] LABS: Urine Drugs of Abuse Note Disclamer
[2017-03-04] MEDS ORDERED: LEVAQUIN 500MG/100ML 500 MG/100 ML BAG IV SCH (11:00)
== END 2017-03-03 18:04 | DRG 871 ==
LOC: ED 23:35 → 4A 03-02 06:47 → CC1 03-02 11:49
PROVIDERS: ADMIT Internal Medicine; ATTEND Internal Medicine
PROC: 05HF33Z Insertion of Infusion Device into Left Cephalic Vein, Percutaneous Approach (ICD-10-PCS; principal; 2017-03-02)
PROC: 05HA33Z Insertion of Infusion Device into Left Brachial Vein, Percutaneous Approach (ICD-10-PCS; 2017-03-02)
PROC: 0BH17EZ Insertion of Endotracheal Airway into Trachea, Via Natural or Artificial Opening (ICD-10-PCS; 2017-03-02)
PROC: 4A033R1 Measurement of Arterial Saturation, Peripheral, Percutaneous Approach (ICD-10-PCS; 2017-03-02)
PROC: 5A1D60Z (ICD-10-PCS; 2017-03-02)
PROC: 5A1945Z Respiratory Ventilation, 24-96 Consecutive Hours (ICD-10-PCS; 2017-03-02)
PROC: 06HM33Z Insertion of Infusion Device into Right Femoral Vein, Percutaneous Approach (ICD-10-PCS; 2017-03-02)
PROC: B54BZZA Ultrasonography of Right Lower Extremity Veins, Guidance (ICD-10-PCS; 2017-03-02)
DX: A41.9 Sepsis, unspecified organism (principal); R65.21 Severe sepsis with septic shock; J96.00 Acute respiratory failure, unspecified whether with hypoxia or hypercapnia; G92 Toxic encephalopathy; N17.0 Acute kidney failure with tubular necrosis; N39.0 Urinary tract infection, site not specified; E87.5 Hyperkalemia; I12.9 Hypertensive chronic kidney disease with stage 1 through stage 4 chronic kidney disease, or unspecified chronic kidney disease; E11.649 Type 2 diabetes mellitus with hypoglycemia without coma; N18.9 Chronic kidney disease, unspecified; E11.40 Type 2 diabetes mellitus with diabetic neuropathy, unspecified; E11.319 Type 2 diabetes mellitus with unspecified diabetic retinopathy without macular edema; B96.89 Other specified bacterial agents as the cause of diseases classified elsewhere; Z86.73 Personal history of transient ischemic attack (TIA), and cerebral infarction without residual deficits; Z82.49 Family history of ischemic heart disease and other diseases of the circulatory system; Z91.018 Allergy to other foods; Z88.8 Allergy status to other drugs, medicaments and biological substances; I46.8 Cardiac arrest due to other underlying condition
CPT/HCPCS: 36415; 36600; 70450; 71010; 74176; 80048; 80053; 80061; 80074; 80307; 81001; 82140; 82271; 82550; 82553; 82803; 82962; 84484; 85007; 85025; 85610; 85730; 86850; 86900; 86901; 87040; 87076; 87086; 87186; 92950; 93005; 93010; 94002; 94003; 96361; 96365; 96366; 96367; 96375; C9113; J0153; J0171; J0610; J1265; J1644; J1650; J1720; J1815; J1956; J2370; J2405; J2543; J3370; J7030; J7040; J7050; J7070